=== PATIENT | male | born 1955 | race Caucasian/White ===

== ENCOUNTER 2017-06-24 00:15 | Inpatient (IN) ==
[2017-06-24 00:50] LABS: Basophils # 0.1 K/mm3 (0-0.2); Basophils % 0.7 % (0.1-2.0); Eosinophils # 0.2 K/mm3 (0.0-0.4); Eosinophils % 2.3 % (0.1-12.0); Hematocrit 44.6 % (42.0-52.0); Hemoglobin 14.7 g/dL (14.1-18.0); Lymphocytes # 2.5 K/mm3 (0.7-4.5); Lymphocytes % 24.8 K/mm3 (10-50); Mean Corpuscular Hemoglobin 28.7 pg (27.0-31.2); Mean Corpuscular Volume 86.9 fl (80-94); Mean Platelet Volume 7.5 fl (7.4-10.4); Monocytes # 0.5 K/mm3 (0.1-1.0); Monocytes % 4.4 % (1.7-9.3); Neutrophils # 6.9 K/mm3 (1.8-7.8); Neutrophils % 67.8 % (37.0-80.0); Platelet Count 403 K/mm3 (142-424); Red Blood Count 5.13 M/mm3 (4.60-6.20); Red Cell Distribution Width 12.4 % (11.5-17.5); White Blood Count 10.1 K/mm3 (4.8-10.8)
[2017-06-24 01:04] LABS: Anion Gap 12.1 mEq/L (5-15); Potassium 3.1 mmoL/L (3.5-5.1)
--- NOTE | 2017-06-24 01:53 | Emergency Department Note ---
ED Disposition Clinical Impression: Renal insufficiency Congestive heart failure Qualifiers: Heart failure type: unspecified Heart failure chronicity: acute Qualified Code( s): I50.9 - Heart failure, unspecified Disposition: Admitted as Observation Condition on Discharge: Good - Critical Care Critical Care Time: No Attestation: On 06/24/17, the high probability of a clinically significant, sudden or life threatening deterioration of the following system(s) required my full and direct attention, intervention and personal management. The time I documented below is in addition to time spent performing reported procedures but includes the following listed in this critical care notation. Medical Decision Making - Medical Records Medical records reviewed: Yes: I reviewed the patient's medical records. - Maldonado Inquiry Pt receiving controlled substance: No Vital Signs: 06/24/17 00:16 06/24/17 00:46 06/24/17 03:13 Temperature 97.9 F 98.5 F Temperature Source Oral Oral Pulse Rate 115 H Pulse Rate [Right Radial] 111 H 95 H Respiratory Rate 28 H 18 Blood Pressure [Right Arm] 179/112 142/89 Blood Pressure Mean [Right Arm] 134 106 Blood Pressure Source [Right Arm] Automatic Cuff Automatic Cuff Blood Pressure Position [Right Arm] Sitting Sitting 02 Sat by Pulse Oximetry 86 L 94 L Oxygen Delivery Method Room Air Room Air Oxygen Flow Rate (LPM) 06/24/17 03:23 Temperature 97.5 F L Temperature Source Temporal Artery Scan Pulse Rate Pulse Rate [Right Radial] 67 Respiratory Rate 20 Blood Pressure [Right Arm] 147/108 Blood Pressure Mean [Right Arm] 121 Blood Pressure Source [Right Arm] Automatic Cuff Blood Pressure Position [Right Arm] Supine 02 Sat by Pulse Oximetry 95 Oxygen Delivery Method Room Air Nasal Cannula Oxygen Flow Rate (LPM) 3 - Lab Data Lab results reviewed: Yes: I reviewed the patient's lab results. Lab Results 06/24/17 00:29: WBC 10.1, RBC 5.13, Hgb 14.7, Hct 44.6, MCV 86.9, MCH 28.7, MCHC 33.0, RDW 12.4, Plt Count 403, MPV 7.5, Neut % (Auto) 67.8, Lymph % (Auto) 24.8, [place] % (Auto) 4.4, Eos % (Auto) 2.3, Baso % (Auto) 0.7, Neut # (Auto) 6.9 , Lymph # (Auto) 2.5, [place] # (Auto) 0.5, Eos # (Auto) 0.2, Baso # (Auto) 0.1 06/24/17 00:29: Sodium 140, Potassium 3.1 L, Chloride 102, Carbon Dioxide 29, Anion Gap 12.1, BUN 22 H, Creatinine 1.58 H, Estimated Creat Clear 68, Estimated GFR 45 L, Est GFR ( Amer) 54 L, Glucose 116 H, Troponin I 0.04 06/24/17 00:29: B-Natriuretic Peptide 826 H 06/24/17 00:29: D-Dimer 1060 H* Result diagrams: 06/24/17 00:29 06/24/17 00:29 Orders (Tests/Meds): ED MEDICATIONS Discontinued Medications Generic Name Dose Route Start Last Admin Trade Name Freq PRN Reason Stop Dose Admin Albuterol/Ipratropium 3 ml 06/24/17 00:27 06/24/17 00:43 Duoneb 3ml [facility] 06/24/17 00:28 3 ml ONCE ONE Administration Aspirin 324 mg 06/24/17 00:27 06/24/17 00:33 Aspirin 81mg Chewable Tablet PO 06/24/17 00:28 324 mg ONCE ONE Administration Furosemide 40 mg 06/24/17 01:15 06/24/17 01:26 Lasix 40mg/4ml Vial IV 06/24/17 01:16 40 mg ONCE ONE Administration Iopamidol 70 ml 06/24/17 03:30 06/24/17 03:32 [id number]; 75ml Vial IV 06/24/17 03:31 70 ml ONCE ONE Administration Methylprednisolone Sodium Succinate 125 mg 06/24/17 01:15 06/24/17 01:27 Solu-Medrol 125mg/2ml Vial IV 06/24/17 01:16 125 mg ONCE ONE Administration Nitroglycerin 1 gm 06/24/17 02:14 06/24/17 02:30 Nitroglycerin 1 Inch Oint Udp TD 06/24/17 02:15 1 gm ONCE ONE Administration Sodium Chloride 3 ml 06/24/17 03:20 Sodium Chloride 3% 15ml [facility] 06/24/17 03:21 ONCE ONE Sodium Chloride 50 ml 06/24/17 03:30 06/24/17 03:32 Rad-Ns 50ml Vial IV 06/24/17 03:31 50 ml ONCE ONE Administration Sodium Chloride 10 ml 06/24/17 03:30 06/24/17 03:32 Rad-Saline Flush 10ml Syringe IV 06/24/17 03:31 10 ml ONCE ONE Administration ORDERS Category Date Time Status CT Chest w/PE protocol [CT angio chest] Stat Cat Scan 06/24/17 01:53 Taken Chest XR AP view [XR chest AP] Stat Exams 06/24/17 00:24 Taken Lactic Acid Stat Lab 06/24/17 03:20 Ordered Blood Culture Stat Micro 06/24/17 03:19 Ordered Sputum Culture & Gram Stain Stat Micro 06/24/17 03:20 Ordered - Radiology Data #1 Image(s): Chest Image Reviewed: Yes I reviewed the patient's radiology image Preliminary Findings: Abnormal (chf) - CT Data CT Scan: Chest Time Received: 04:[address] Reviewed: Yes: I have viewed the radiologist's interpretation Preliminary Findings: Abnormal (see report- chf) - ECG Data Tracing #1 I reviewed this ECG and interpreted as documented below: Arrhythmias present: sinus tach Ischemic changes: non-specific ST-T wave changes - Physician Consults Physician Consulted: jose luis Reason -: Admission Resp/SOB HPI - General Chief Complaint: Shortness of Breath/Dyspnea Stated Complaint: short of breath Time Seen by Provider: 06/24/17 01:52 Mode of Arrival: Ambulatory Source of Information: Patient, Spouse, Medical Record Limitations: No Limitations Description of Symptoms (Recalled from ER Triage Doc. by RN): pt reports he was on antibiotic for spot on left leg, awoke SOB with cough also hypertension - History of Present Illness pt with sudden sob and cough tonight w/o chest pain - MD Complaint: shortness of breath, cough Onset (ago): hour(s) Severity: moderate Relieving factors: nothing Known history of: COPD Treatment prior to arrival: none - Related Data Home oxygen amount: none Home Medications Medication Instructions Recorded Confirmed No Known Home Medications 06/24/17 06/24/17 Allergies Allergy/AdvReac Type Severity Reaction Status Date / Time Penicillins Allergy Verified 06/24/17 00:26 [facility] History I have reviewed the patient's past medical history: Yes Medical History: Denies:: Cancer, Diabetes Mellitus Type 1, Diabetes Mellitus Type 2, MRSA Amputation: No Fractures: No - Social History Smoking Status: Current every day smoker # Packs/Day (cigarettes): 1 Alcohol Intake: never - Psychiatric History Expresses thoughts of harming self/others: None Suicide Plan Description: No Plan ROS Obtained: Yes All systems reviewed & no additional complaints - Constitutional Constitutional: Denies fever(s) - Eyes Eyes: Denies change in vision - ENT Ears, Nose, Mouth, and Throat: Denies sore throat - Cardiovascular Cardiovascular: Denies chest pain - Respiratory Respiratory: Yes cough, Yes dyspnea, No coughing up blood - Gastrointestinal Gastrointestingal: Denies: abdominal pain - Genitourinary Male Genitourinary: Denies hematuria - Musculoskeletal Musculoskeletal: Denies joint pain, Denies joint swelling - Integumentary/Breasts Skin/Breast: Denies rash - Neurologic Neurologic: Denies seizure-like activity Physical Exam - General General appearance: in no apparent distress - Head Head exam: normocephalic - Eye Eye exam: Present: PERRL, EOMI - ENT ENT exam: Present: mucous membranes dry - Neck Neck exam: Present: trachea midline - Respiratory Respiratory exam: Present: other (rales bilat). Absent: respiratory distress - Cardiovascular Cardiovascular exam: Present: regular rate, systolic murmur, +S3 - Abdominal Exam Abdominal exam: Present: soft - Extremities Exam Extremities exam: Absent: calf tenderness - Neurological Exam Neurological exam: Present: alert, oriented X3, CN II-XII intact - Psychiatric Psychiatric exam: Present: normal affect - Skin Skin exam: Absent: rash
[2017-06-24 07:29] LABS: Basophils % 0.1 % (0.1-2.0); Eosinophils % 0.4 % (0.1-12.0); Hematocrit 42.9 % (42.0-52.0); Hemoglobin 14.3 g/dL (14.1-18.0); Lymphocytes # 0.5 K/mm3 (0.7-4.5); Lymphocytes % 4.3 K/mm3 (10-50); Mean Corpuscular HGB Conc 33.4 g/dL (31.8-35.4); Mean Corpuscular Hemoglobin 28.8 pg (27.0-31.2); Mean Corpuscular Volume 86.4 fl (80-94); Mean Platelet Volume 7.4 fl (7.4-10.4); Monocytes # 0.1 K/mm3 (0.1-1.0); Monocytes % 1.2 % (1.7-9.3); Neutrophils # 10.6 K/mm3 (1.8-7.8); Platelet Count 370 K/mm3 (142-424); Red Blood Count 4.96 M/mm3 (4.60-6.20); Red Cell Distribution Width 12.4 % (11.5-17.5); White Blood Count 11.3 K/mm3 (4.8-10.8)
[2017-06-24 07:38] LABS: Anion Gap 14.2 mEq/L (5-15); Potassium 3.2 mmoL/L (3.5-5.1)
[2017-06-24 07:43] LABS: Chol/HDL Ratio 7.9 (1-3.5)
--- NOTE | 2017-06-24 08:07 | History & Physical Report ---
*Admission Date: 06/24/17 *Chief complaint: Shortness of air *History of present illness: 62-year-old white male with negative past medical history who a couple of weeks ago went to see his primary physician for a red insect bite on his foot and was noted to have high blood pressure. Watch waiting was prescribed and the patient was to return this month to reevaluate his blood pressure. He has been taking it at [facility] and notices that it has been in the 170 range. He woke up in the middle of the night last night with shortness of air and coughing, significant dyspnea and came to the emergency department. Found to be in pulmonary edema, evidence of CHF. Troponins negative, chest x-ray otherwise negative, patient diuresed almost a liter of urine with a dose of Lasix and felt much better. This morning he feels better without complaints. [facility] History I have reviewed the patient's past medical history: Yes Medical History: Denies:: Cancer, Diabetes Mellitus Type 1, Diabetes Mellitus Type 2, MRSA Other Surgeries: Yes: Cardiac Catheterization Amputation: No Fractures: No - *Social History Educational Level: Attended High School Smoking Status: Current every day smoker Tobacco Type: cigarettes # Packs/Day (cigarettes): 1 #Yrs smoked (if former smoker): 47 Alcohol Intake: never Occupational Status: employed Housing: house Household Members: spouse - Psychiatric History Expresses thoughts of harming self/others: None Suicide Plan Description: No Plan *Family Hx:: Anemia, Cancer, Coronary Artery Disease, Diabetes, Hyperlipidemia Review of Systems - Constitutional Denies anorexia, Denies body ache(s) - Eyes Denies blind spots, Denies change in vision - ENT Denies abnormal hearing, Denies bleeding gums - *Cardiovascular Reports shortness of breath, Reports shortness of breath with activity, Reports shortness of breath when lying down, Reports shortness of breath causing sudden awakening, Denies chest pain, Denies chest pain at rest, Denies irregular heart rhythm, Denies leg swelling, Denies rapid, pounding, or irregular heartbeat - *Respiratory Denies change in phlegm color, Denies chest congestion, Denies cough, Denies shortness of breath - *Genitourinary Denies difficulty urinating - *Musculoskeletal Denies abnormal walking, Denies joint pain - *Neurologic Denies seizure-like activity Meds Home Medications Medication Instructions Recorded Confirmed Type cephALEXin [cephALEXin 500mg 2 tab PO BID 06/24/17 06/24/17 History capsule] Allergies Allergy/AdvReac Type Severity Reaction Status Date / Time Penicillins Allergy Verified 06/24/17 00:26 Exam Vital signs and Labs for Last 24 Hours: Temp Pulse Resp BP Pulse Ox 98.2 F 96 H 20 148/97 98 06/24/17 07:30 06/24/17 07:30 06/24/17 07:30 06/24/17 07:30 06/24/17 07:30 Laboratory Results - last 24 hr 06/24/17 00:29: WBC 10.1, RBC 5.13, Hgb 14.7, Hct 44.6, MCV 86.9, MCH 28.7, MCHC 33.0, RDW 12.4, Plt Count 403, MPV 7.5, Neut % (Auto) 67.8, Lymph % (Auto) 24.8, [place] % (Auto) 4.4, Eos % (Auto) 2.3, Baso % (Auto) 0.7, Neut # (Auto) 6.9 , Lymph # (Auto) 2.5, [place] # (Auto) 0.5, Eos # (Auto) 0.2, Baso # (Auto) 0.1 06/24/17 00:29: Sodium 140, Potassium 3.1 L, Chloride 102, Carbon Dioxide 29, Anion Gap 12.1, BUN 22 H, Creatinine 1.58 H, Estimated Creat Clear 68, Estimated GFR 45 L, Est GFR ( Amer) 54 L, Glucose 116 H, Troponin I 0.04 06/24/17 00:29: B-Natriuretic Peptide 826 H 06/24/17 00:29: D-Dimer 1060 H* 06/24/17 03:36: Lactic Acid 1.1 06/24/17 07:06: Sodium 139, Potassium 3.2 L, Chloride 101, Carbon Dioxide 27, Anion Gap 14.2, BUN 22 H, Creatinine 1.47 H, Estimated Creat Clear 69, Estimated GFR 49 L, Est GFR ( Amer) 59, Glucose 145 H D 06/24/17 07:06: WBC 11.3 H, RBC 4.96, Hgb 14.3, Hct 42.9, MCV 86.4, MCH 28.8, MCHC 33.4, RDW 12.4, Plt Count 370, MPV 7.4, Neut % (Auto) 94.0 H, Lymph % (Auto ) 4.3 L, [place] % (Auto) 1.2 L, Eos % (Auto) 0.4, Baso % (Auto) 0.1, Neut # (Auto ) 10.6 H, Lymph # (Auto) 0.5 L, [place] # (Auto) 0.1, Eos # (Auto) 0.0, Baso # ( Auto) 0.0 06/24/17 07:06: Triglycerides 53, Cholesterol 238 H, LDL Cholesterol 197 H, VLDL Cholesterol 11, HDL Cholesterol 30, Cholesterol/HDL Ratio 7.9 H 06/24/17 07:06: Magnesium 2.1, Troponin I 0.07 H I & O for Last 24 hours: Intake & Output 06/21/17 06/22/17 06/23/17 06/24/17 11:59 11:59 11:59 11:59 Intake Total 240 / 240 Output Total 1000 / 1000 Balance -760 / -760 Weight 203 lb Narrative: Patient is pleasant, wearing 2 L of oxygen, no JVD currently. Lungs have minimal rhonchi in both bases but otherwise clear. Apparently much clearer than the ER note. Heart rate regular without murmurs. Abdomen soft, no extremity edema or clubbing. Alert and oriented 3. H&P: Result - Labs Labs: Short CBC 06/24/17 06/24/17 Range/Units 00:29 07:06 WBC 10.1 11.3 H (4.8-10.8) K/mm3 Hgb 14.7 14.3 (14.1-18.0) g/dL Hct 44.6 42.9 (42.0-52.0) % Plt Count 403 370 (142-424) K/mm3 BMP 06/24/17 06/24/17 00:29 07:06 Sodium 140 139 Potassium 3.1 L 3.2 L Chloride 102 101 Carbon Dioxide 29 27 BUN 22 H 22 H Creatinine 1.58 H 1.47 H Glucose 116 H 145 H D Cardiac Enzymes 06/24/17 06/24/17 Range/Units 00:29 07:06 Troponin I 0.04 0.07 H (0.00-0.06) ng/ml Assessment and Plan (1) Paroxysmal nocturnal dyspnea Current visit: Yes Status: Acute Category: Medical Code(s): R06.00 - Dyspnea, unspecified Consequence of pulmonary edema. Ameliorated with IV Lasix. One more dose today. (2) Congestive heart failure Current visit: Yes Status: Acute Qualifiers: Heart failure type: unspecified Heart failure chronicity: acute Qualified Code(s): I50.9 - Heart failure, unspecified Category: Medical Code(s): I50.9 - Heart failure, unspecified Preliminary EKG. Preliminary echo shows EF 40-50%. Plan will be to begin RACHEL inhibitor cautiously, spironolactone and IV Lasix. Watch electrolytes tomorrow. Possible discharge tomorrow on medication. (3) Renal insufficiency Current visit: Yes Status: Acute Category: Medical Code(s): N28.9 - Disorder of kidney and ureter, unspecified Probable improvement with IV Lasix as he is pushed back behind the [place] curve. Watch labs tomorrow.
[2017-06-24 08:18] LABS: Lymphocytes % 5 % (10-50); Monocytes % 3 % (2-9); Neutrophils % 92 % (42-76); Total Cells Counted 100
--- NOTE | 2017-06-24 08:19 | Pharmacy Consult Notes ---
[facility] Pharmacy VTE Monitoring - Patient Demographics Admission date: 06/24/17 Report Date: 06/24/17 Time: 08:19 Allergies/Adverse Reactions: Patient Allergies Penicillins Allergy (Verified 06/24/17 00:26) Height: 1.91 m Weight: 92.079 kg Patient Problems: Current Active Problems Congestive heart failure (Acute) Renal insufficiency (Acute) Paroxysmal nocturnal dyspnea (Acute) - VTE Risk Labs: VTE Related Lab Results Hgb 14.3 g/dL (14.1-18.0) 06/24/17 07:06 Hct 42.9 % (42.0-52.0) 06/24/17 07:06 Plt Count 370 K/mm3 (142-424) 06/24/17 07:06 BUN 22 mg/dL (7-18) H 06/24/17 07:06 Creatinine 1.47 mg/dL (0.70-1.30) H 06/24/17 07:06 Estimated Creat Clear 69 mL/min (0-300) 06/24/17 07:06 Was VTE Risk Assessment Performed: Yes VTE Score: 4 VTE Risk Level: Low Risk - Prophylaxis VTE Prophylaxis Ordered?: Yes Types of VTE Prophylaxis: TEDS Knee High Location of Applied Device: Bilateral Lower Extremeties - VTE Diagnosis Confirmed Treatment or plan recommended: Continue Current Treatment
--- NOTE | 2017-06-24 13:02 | Cardiology Report ---
PROCEDURE: 2-D M-mode and color Doppler INDICATIONS FOR THE TEST: Chest pain COPD Heart Murmur+ Tobacco Smoking+ Palpitations Fatigue Syncope Edema Hypertension Diabetes Mellitus Rheumatic Fever SOB+DIALLO Obesity Hyperlipidemia Family History HD Additional History PATIENT INFORMATION HEIGHT: 75 WEIGHT:215 GENDER: Male B/P:142/89 2-D/M-MODE INTERPRETATION: 2-D MEASUREMENTS OBSERVED VALUES IN CMS Right Ventricular Dimension (RVDd) 2.2 Interventricular Septum (Thickness)(IVsd) 1.0 Left Ventricular Internal Dimensions(LVIDd) 5.7 Left Ventricular Posterior Wall (Thickness)(LVPWd) 0.8 Aortic Root 4.3 Aortic Cusp Separation 2.3 Left Atrial Dimensions (LAD) 4.4 2D 1. Left atrium is mildly enlarged, left ventricle is normal size, visually estimated ejection fraction approximately 45%, left ventricle appears to be mildly globally hypokinetic. 2. The right atrium and right ventricle are normal size and contractility The aortic valve is thickened and calcified leaflet continue to display mobility. 3. The mitral and tricuspid valvular grossly normal. 4. The pulmonic valve is poorly visualized 5. No significant pericardial effusion noted. DOPPLER INTERROGATION: Doppler interrogation of the aortic, mitral and tricuspid valvular presence of mild aortic, mild mitral and tricuspid regurgitation, tricuspid and jet velocity insufficient for calculation of the right ventricular systolic pressure, diastolic parameters are inconclusive. CONCLUSION: 1. Mildly enlarged left atrium, visually estimated ejection fraction 45% left ventricle is globally hypokinetic. Diastolic parameters are inconclusive. 2. Mild aortic, mild mitral and tricuspid regurgitation 3. No significant pericardial effusion noted.
[2017-06-24 18:01] LABS: Coronavirus 229E Not Detected (NotDetected); Coronavirus NL63 Not Detected (NotDetected); Coronavirus OC43 Not Detected (NotDetected); Coronovirus HKU1,PCR Not Detected (NotDetected)
[2017-06-25 06:39] LABS: Basophils % 0.2 % (0.1-2.0); Eosinophils # 0.1 K/mm3 (0.0-0.4); Eosinophils % 1.1 % (0.1-12.0); Hematocrit 40.9 % (42.0-52.0); Hemoglobin 13.5 g/dL (14.1-18.0); Lymphocytes # 2.8 K/mm3 (0.7-4.5); Lymphocytes % 23.3 K/mm3 (10-50); Mean Corpuscular HGB Conc 33.1 g/dL (31.8-35.4); Mean Corpuscular Hemoglobin 28.7 pg (27.0-31.2); Mean Corpuscular Volume 86.7 fl (80-94); Mean Platelet Volume 7.6 fl (7.4-10.4); Monocytes # 0.6 K/mm3 (0.1-1.0); Monocytes % 4.8 % (1.7-9.3); Neutrophils # 8.4 K/mm3 (1.8-7.8); Neutrophils % 70.5 % (37.0-80.0); Platelet Count 368 K/mm3 (142-424); Red Blood Count 4.72 M/mm3 (4.60-6.20); Red Cell Distribution Width 12.6 % (11.5-17.5); White Blood Count 11.9 K/mm3 (4.8-10.8)
[2017-06-25 06:49] LABS: Albumin Level 3.2 gm/dL (3.4-5.0); Albumin/Globulin Ratio 0.9 (1.1-1.8); Anion Gap 13.9 mEq/L (5-15); Bilirubin,Total 0.4 mg/dL (0.2-1.0); Calcium 9.1 mg/dL (8.5-10.1); Globulin 3.7 gm/dl (1.3-3.2); Total Protein,Serum 6.9 gm/dL (6.4-8.2)
[2017-06-25 06:57] LABS: Potassium 2.9 mmoL/L (3.5-5.1)
--- NOTE | 2017-06-25 08:32 | Discharge Summary ---
General - General Admission date:: 06/24/17 Discharge date: 06/25/17 HPI HPI: 62-year-old white male with negative past medical history who a couple of weeks ago went to see his primary physician for a red insect bite on his foot and was noted to have high blood pressure. Watch waiting was prescribed and the patient was to return this month to reevaluate his blood pressure. He has been taking it at [facility] and notices that it has been in the 170 range. He woke up in the middle of the night last night with shortness of air and coughing, significant dyspnea and came to the emergency department. Found to be in pulmonary edema, evidence of CHF. Troponins negative, chest x-ray otherwise negative, patient diuresed almost a liter of urine with a dose of Lasix and felt much better. This morning he feels better without complaints. Hospital Course Hospital Course: Patient was admitted, ruled out for [place] by enzyme and EKG criteria. Diuresed with IV Lasix and very nicely with this. Echocardiogram revealed ejection fraction 45% with diffuse hypokinesis. No significant discrete motion abnormality or valvular problems. The diagnosis of CHF secondary to long-term hypertension was made. Is placed on lisinopril and spironolactone tolerated this well with good response of blood pressure from the 170s in the 130s. Patient's oxygen requirement resolved. This morning the patient feels great. He will be discharged home on lisinopril , spironolactone and Lasix. He will follow-up with cardiology next week. His regular physician week after next. I would like to have labs on him on Wednesday, he does have a slightly low potassium but given his prescription for 2 medications that increase potassium levels I will not supplement with potassium at this point. Objective Vital signs: Temp Pulse Resp BP Pulse Ox 97.9 F 86 16 136/86 92 L 06/25/17 08:00 06/25/17 08:00 06/25/17 08:00 06/25/17 08:00 06/25/17 08:00 Narrative: Alert, oriented 3. Lungs clear. Heart rate regular. Abdomen soft, no edema. Results Labs on day of discharge: Labs from last 24 hours 06/25/17 06/25/17 06/24/17 06:20 06:20 17:20 WBC 11.9 H RBC 4.72 Hgb 13.5 L Hct 40.9 L MCV 86.7 MCH 28.7 MCHC 33.1 RDW 12.6 Plt Count 368 MPV 7.6 Neut % (Auto) 70.5 Lymph % (Auto) 23.3 [place] % (Auto) 4.8 Eos % (Auto) 1.1 Baso % (Auto) 0.2 Neut # (Auto) 8.4 H Lymph # (Auto) 2.8 [place] # (Auto) 0.6 Eos # (Auto) 0.1 Baso # (Auto) 0.0 Sodium 142 Potassium 2.9 L* Chloride 103 Carbon Dioxide 28 Anion Gap 13.9 BUN 26 H Creatinine 1.32 H Estimated Creat Clear 77 Estimated GFR 55 L Est GFR ( Amer) 67 Glucose 99 D Calcium 9.1 Total Bilirubin 0.4 AST 17 ALT 20 Alkaline Phosphatase 79 Troponin I Total Protein 6.9 Albumin 3.2 L Globulin 3.7 H Albumin/Globulin Ratio 0.9 L Chlamy pneumoniae PCR Not detected Adenovirus (PCR) Not detected B.parapertussis DNA PCR Not detected Coronavirus OC43 (PCR) Not detected Coronavirus HKU1 (PCR) Not detected Coronavirus 229E (PCR) Not detected Coronavirus NL63 (PCR) Not detected Human Metapneumovir PCR Not detected Influenza A (H1) PCR Not detected Influ A (H1N1/09) PCR Not detected Influenza A (H3) PCR Not detected Influenza Type A (PCR) Not detected Influenza Type B (PCR) Not detected M. pneumoniae (PCR) Not detected Parainfluenza 1 (PCR) Not detected Parainfluenza 2 (PCR) Not detected Parainfluenza 3 (PCR) Not detected Parainfluenza 4 (PCR) Not detected RSV (PCR) Not detected Entero/Rhino (PCR) Not detected 06/24/17 11:36 WBC RBC Hgb Hct MCV MCH MCHC RDW Plt Count MPV Neut % (Auto) Lymph % (Auto) [place] % (Auto) Eos % (Auto) Baso % (Auto) Neut # (Auto) Lymph # (Auto) [place] # (Auto) Eos # (Auto) Baso # (Auto) Sodium Potassium Chloride Carbon Dioxide Anion Gap BUN Creatinine Estimated Creat Clear Estimated GFR Est GFR ( Amer) Glucose Calcium Total Bilirubin AST ALT Alkaline Phosphatase Troponin I 0.05 Total Protein Albumin Globulin Albumin/Globulin Ratio Chlamy pneumoniae PCR Adenovirus (PCR) B.parapertussis DNA PCR Coronavirus OC43 (PCR) Coronavirus HKU1 (PCR) Coronavirus 229E (PCR) Coronavirus NL63 (PCR) Human Metapneumovir PCR Influenza A (H1) PCR Influ A (H1N1/09) PCR Influenza A (H3) PCR Influenza Type A (PCR) Influenza Type B (PCR) M. pneumoniae (PCR) Parainfluenza 1 (PCR) Parainfluenza 2 (PCR) Parainfluenza 3 (PCR) Parainfluenza 4 (PCR) RSV (PCR) Entero/Rhino (PCR) Preliminary micro results at discharge 06/24/17 03:36 Blood Culture - Preliminary Blood NO GROWTH AFTER 24 HOURS 06/24/17 03:36 Blood Culture - Preliminary Blood NO GROWTH AFTER 24 HOURS DS: Diagnosis - Discharge Diagnosis (1) Paroxysmal nocturnal dyspnea Status: Resolved (2) Congestive heart failure Status: Acute (3) Renal insufficiency Status: Chronic Discharge Plan - Patient Discharge Instructions ACTIVITY: Continue current activity DIET: cardiac - Follow up Plan Follow up with: Chema Joel PA [Physician [employer]] - 06/29/17 Kel Gagnon [Primary Care Provider] - 2 weeks Disposition: Home, Self-Long-Term Medications: Home Medications Medication Instructions Recorded Confirmed Type cephALEXin [cephALEXin 500mg 2 tab PO BID 06/24/17 06/24/17 History capsule] Prescriptions/Medication Reconciliation: New Furosemide [Lasix 40mg tab] 40 mg PO DAILY #30 tab Lisinopril [Zestril 10mg Tab] 10 mg PO DAILY #30 tab Spironolactone [Aldactone 25mg Tab] 25 mg PO BID #60 tab Nicotine [Nicoderm 14mg/24hrs patch] 1 each TD DAILY #30 patch.[id number] Discontinued cephALEXin [cephALEXin 500mg capsule] 2 tab PO BID
== END 2017-06-25 10:00 | disposition home or self-care (01) ==
LOC: ER 00:15 → 2ND 00:15 → INTOOBSV 04:35 → OBSVTOIN 04:35 → 2ND 04:39
PROVIDERS: ADMIT Internal Medicine Adolescent Medicine; ATTEND Internal Medicine Adolescent Medicine

== ENCOUNTER → 2017-06-28 08:39 | Outpatient (CLI) | payer BC, SELFPAY ==
[2017-06-28 10:22] LABS: Anion Gap 13.2 mEq/L (5-15); Blood Urea Nitrogen 31 mg/dL (7-18); Carbon Dioxide 28 mmol/L (21.0-32.0); Chloride 105 mmol/L (98-107); Creatinine,Serum 1.42 mg/dL (0.70-1.30); Estimated Glomerular Filt Rate 51 ml/min (>60); GFR (African American) 61 ML/MIN (>60); Glucose 84 mg/dL (74-106); Potassium 4.2 mmoL/L (3.5-5.1); Sodium 142 mmol/L (136-145)
== END ==
PROVIDERS: Visit Provider Internal Medicine Adolescent Medicine
DX: I50.9 Heart failure, unspecified (principal)
CPT/HCPCS: 36415; 80048

== ENCOUNTER → 2017-06-30 15:09 | Outpatient (CLI) | payer BC, SELFPAY | PROVIDERS: Visit Provider Physician Assistant | DX: R06.00 Dyspnea, unspecified (principal); I10 Essential (primary) hypertension | CPT/HCPCS: 93005 ==

== ENCOUNTER → 2017-07-07 15:07 | Outpatient (CLI) | payer BC, SELFPAY ==
[2017-07-07 17:25] LABS: Alanine Aminotransferase 21 U/L (12-78); Albumin Level 3.3 gm/dL (3.4-5.0); Albumin/Globulin Ratio 0.9 (1.1-1.8); Alkaline Phosphatase 88 U/L (46-116); Anion Gap 16.2 mEq/L (5-15); Aspartate Amino Transferase 14 U/L (15-37); Bilirubin,Total 0.3 mg/dL (0.2-1.0); Blood Urea Nitrogen 27 mg/dL (7-18); Calcium 9.6 mg/dL (8.5-10.1); Carbon Dioxide 24 mmol/L (21.0-32.0); Chloride 106 mmol/L (98-107); Creatine Kinase 68 U/L (39-308); Creatinine,Serum 1.65 mg/dL (0.70-1.30); Estimated Glomerular Filt Rate 43 ml/min (>60); Free T4 (Free Thyroxine) 1.12 ng/dl (0.76-1.46); GFR (African American) 52 ML/MIN (>60); Globulin 3.5 gm/dl (1.3-3.2); Glucose 84 mg/dL (74-106); Potassium 5.2 mmoL/L (3.5-5.1); Sodium 141 mmol/L (136-145); Thyroid Stimulating Hormone 1.48 uIU/ml (0.358-3.740); Total Protein,Serum 6.8 gm/dL (6.4-8.2)
== END ==
PROVIDERS: Visit Provider Physician Assistant
DX: I50.9 Heart failure, unspecified (principal); I48.91 Unspecified atrial fibrillation
CPT/HCPCS: 36415; 80053; 82550; 83735; 84439; 84443; 93005

== ENCOUNTER → 2017-07-16 08:54 | Outpatient (CLI) | payer BC, SELFPAY ==
[2017-07-16 10:46] LABS: Anion Gap 13.2 mEq/L (5-15); Blood Urea Nitrogen 20 mg/dL (7-18); Carbon Dioxide 27 mmol/L (21.0-32.0); Chloride 105 mmol/L (98-107); Creatinine,Serum 1.24 mg/dL (0.70-1.30); Estimated Glomerular Filt Rate 59 ml/min (>60); GFR (African American) 72 ML/MIN (>60); Glucose 77 mg/dL (74-106); Potassium 4.2 mmoL/L (3.5-5.1); Sodium 141 mmol/L (136-145)
== END ==
PROVIDERS: Visit Provider Physician Assistant
DX: N28.9 Disorder of kidney and ureter, unspecified (principal); E87.5 Hyperkalemia
CPT/HCPCS: 36415; 80048

== ENCOUNTER → 2017-09-11 07:04 | Outpatient (CLI) | payer BC, SELFPAY ==
[2017-09-11 09:00] LABS: Alanine Aminotransferase 29 U/L (12-78); Albumin Level 3.7 gm/dL (3.4-5.0); Albumin/Globulin Ratio 1.3 (1.1-1.8); Alkaline Phosphatase 99 U/L (46-116); Anion Gap 10.1 mEq/L (5-15); Aspartate Amino Transferase 14 U/L (15-37); Bilirubin,Total 0.5 mg/dL (0.2-1.0); Blood Urea Nitrogen 18 mg/dL (7-18); Calcium 8.9 mg/dL (8.5-10.1); Carbon Dioxide 27 mmol/L (21.0-32.0); Chloride 107 mmol/L (98-107); Chol/HDL Ratio 4.3 (1-3.5); Cholesterol 136 mg/dL (140-200); Creatinine,Serum 1.32 mg/dL (0.70-1.30); Estimated Glomerular Filt Rate 55 ml/min (>60); GFR (African American) 67 ML/MIN (>60); Globulin 2.9 gm/dl (1.3-3.2); Glucose 76 mg/dL (74-106); HDL Cholesterol 32 mg/dL (27-67); LDL Cholesterol 89 mg/dL (0-130); Potassium 4.1 mmoL/L (3.5-5.1); Sodium 140 mmol/L (136-145); Total Protein,Serum 6.6 gm/dL (6.4-8.2); Triglycerides 74 mg/dL (30-200); VLDL Cholesterol 15 mg/dL (0-40)
== END ==
PROVIDERS: Visit Provider Physician Assistant
DX: I25.10 Atherosclerotic heart disease of native coronary artery without angina pectoris (principal); E78.5 Hyperlipidemia, unspecified
CPT/HCPCS: 36415; 80053; 80061; 83880

== ENCOUNTER → 2017-11-01 11:53 | Outpatient (CLI) | payer BC, SELFPAY ==
--- NOTE | 2017-11-01 12:05 | XR_ITS ---
EXAM: XR lumbar spine min 4V HISTORY: ITS.REASON: LOW BACK PAIN ORDERING PHYSICIAN: Kel Gagnon PATIENT AGE: 62 years COMPARISON: None FINDINGS: Normal alignment. Minimal lumbar curvature convex left. No fracture or dislocation. No lytic or blastic change. The disc spaces are well-preserved. There is fusiform dilatation of the abdominal aorta measuring 5.7 cm in AP dimension on the lateral view. This does have some magnification. IMPRESSION: 1. No acute findings of the lumbar spine. 2. Abdominal aortic aneurysm. Consider CT abdomen for more thorough evaluation
== END ==
PROVIDERS: PCP Internal Medicine; Visit Provider Internal Medicine
DX: M54.5 Low back pain (principal)
CPT/HCPCS: 72110

== ENCOUNTER → 2017-11-02 14:33 | Outpatient (CLI) | payer BC, SELFPAY ==
[2017-11-02 16:20] LABS: Blood Urea Nitrogen 20 mg/dL (7-18); Creatinine,Serum 1.47 mg/dL (0.70-1.30); Estimated Glomerular Filt Rate 49 ml/min (>60); GFR (African American) 59 ML/MIN (>60)
== END ==
PROVIDERS: PCP Internal Medicine; Visit Provider Physician Assistant
DX: I71.4 Abdominal aortic aneurysm, without rupture (principal); N28.9 Disorder of kidney and ureter, unspecified
CPT/HCPCS: 36415; 82565; 84520

== ENCOUNTER → 2017-11-03 12:42 | Outpatient (CLI) | payer BC, SELFPAY ==
--- NOTE | 2017-11-03 13:03 | CT_ITS ---
CT angio abdomen CLINICAL INDICATION: Abdominal aortic aneurysm noted on recent lumbar spine film, back pain ITS.REASON: AAA,DILATED ASCENDING AORTA, CAD,HTN,FORMER SMOKER ORDERING PHYSICIAN: OWEN Benitez PATIENT AGE: 62 years COMPARISON: None TECHNIQUE: Axial images obtained with sagittal and coronal reformats. All CT scans at the facility use one or more dose reduction, viz: automated exposure control, ma/kV adjustment per patient size (including targeted exams where dose is matched to indication, i.e. head), or iterative reconstruction technique. PROCEDURE: Oral Contrast: None IV Contrast: 100 mL's of Isovue-370 performed in conjunction with the chest CT. FINDINGS: CT angiography: There is an infrarenal abdominal aortic aneurysm measuring 4.6 cm in maximum AP dimension and 5 cm transverse. The aneurysm begins 11 mm below the level the most inferior renal artery and tapers at the aortic bifurcation with a total lap of approximately 11 cm. There is no evidence of acute hemorrhage. There is mild amount of mural thrombus. There is a prominent atherosclerotic ulcer along the posterior aspect of the aneurysm with some smaller atherosclerotic ulcers more superior. 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 This supplies the mid and upper pole of the left kidney and is the largest of 2 left renal arteries. There is an accessory renal artery to the lower pole the left kidney. This accessory renal artery is approximately 11 mm superior to the beginning of the aneurysm. 50% stenosis involves ostium of the celiac artery. SMA has an unremarkable appearance. The SARTHAK is small and may be occluded proximally with collateral filling from the SMA. Atherosclerotic changes involve the proximal iliacs with 50% stenosis of the proximal aspect of the right common iliac artery. Nonangiographic findings: FINDINGS: Several isodense is present involving the liver the largest in the right hepatic lobe anteriorly and 1.4 cm and may be due to a hepatic cyst. The spleen, adrenal glands, and pancreas are unremarkable. The left kidney is atrophic with hypoperfusion to the mid and upper pole of the left kidney. No radio opaque gallstones. No intestinal obstruction or free air. There is no pelvic mass or abnormal fluid collection. The prostate is slightly enlarged at 5 cm. There is a small left inguinal hernia containing fat. No acute bony anomalies evident. IMPRESSION: 1. 4.6 x 5 cm fusiform infrarenal abdominal aortic aneurysm as described above. Please see above for detailed description. Atheromatous ulcers are present within the aneurysm the largest posteriorly. 2. Occluded left renal artery proximally with atrophic changes of the left kidney and hypoperfusion to the mid and upper pole the left kidney 3. 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 50 % stenosis of the ostium of the right common iliac artery.
--- NOTE | 2017-11-03 13:03 | CT_ITS ---
CT angio chest HISTORY: Follow-up dilated ascending aorta ITS.REASON: AAA,DILATED ASCENDING AORTA,CAD,HTN,FORMER SMOKER ORDERING PHYSICIAN: OWEN Benitez PATIENT AGE: 62 years COMPARISON: 06/24/2017 TECHNIQUE: Axial images obtained following the administration of 75 mL of Isovue 370 . Sagittal, and coronal reformatted images are also generated and reviewed. All CT scans at the facility use one or more dose reduction, viz: automated exposure control, ma/kV adjustment per patient size (including targeted exams where dose is matched to indication, i.e. head), or iterative reconstruction technique. FINDINGS: There is been no significant change in the mild ectasia of the ascending thoracic aorta measuring 4.1 cm AP and transverse. There is no evidence of aortic dissection. Great vessels have an unremarkable appearance. Normal heart size. No evidence of pericardial effusion. No evidence of pulmonary embolus. Mildly prominent mediastinal lymph nodes previously noted are somewhat smaller. There are centrilobular and paraseptal emphysematous changes with biapical scarring. Previously noted pleural effusions have resolved. Calcified granuloma is present in the right upper lobe. A noncalcified nodule present in the right upper lobe centrally at 4 mm not significant change.. No lobar consolidation or collapse is evident. There is no sternal fracture involving the mid aspect of the body of the sternum. IMPRESSION: 1. Overall no change in the ectasia of the ascending aorta. No evidence of dissection or pulmonary embolus. 2. Centrilobular and paraseptal emphysema with old granulomatous disease and a stable 4 mm noncalcified nodule in the right upper lobe.
--- NOTE | 2017-11-03 13:30 | HMH.ITSHM ---
BISPROLOLXARELTO LISINOPRIL LIPITOR BRILINTA LASIX
== END ==
PROVIDERS: Family Provider Internal Medicine; PCP Internal Medicine; Visit Provider Physician Assistant
DX: I71.4 Abdominal aortic aneurysm, without rupture (principal); I10 Essential (primary) hypertension; I71.2 Thoracic aortic aneurysm, without rupture; I25.10 Atherosclerotic heart disease of native coronary artery without angina pectoris
CPT/HCPCS: 71275; 74175; Q9967

== ENCOUNTER → 2017-12-02 08:29 | Outpatient (CLI) | payer BC, SELFPAY ==
[2017-12-02 11:07] LABS: Alanine Aminotransferase 36 U/L (12-78); Albumin Level 3.8 gm/dL (3.4-5.0); Albumin/Globulin Ratio 1.3 (1.1-1.8); Alkaline Phosphatase 101 U/L (46-116); Anion Gap 11.6 mEq/L (5-15); Aspartate Amino Transferase 18 U/L (15-37); Bilirubin,Total 0.4 mg/dL (0.2-1.0); Blood Urea Nitrogen 21 mg/dL (7-18); Calcium 9.2 mg/dL (8.5-10.1); Carbon Dioxide 29 mmol/L (21.0-32.0); Chloride 103 mmol/L (98-107); Chol/HDL Ratio 3.6 (1-3.5); Cholesterol 142 mg/dL (140-200); Creatinine,Serum 1.35 mg/dL (0.70-1.30); Estimated Glomerular Filt Rate 54 ml/min (>60); GFR (African American) 65 ML/MIN (>60); Glucose 90 mg/dL (74-106); HDL Cholesterol 40 mg/dL (27-67); LDL Cholesterol 85 mg/dL (0-130); Potassium 4.6 mmoL/L (3.5-5.1); Sodium 139 mmol/L (136-145); Total Protein,Serum 6.8 gm/dL (6.4-8.2); Triglycerides 86 mg/dL (30-200); VLDL Cholesterol 17 mg/dL (0-40)
== END ==
PROVIDERS: PCP Internal Medicine; Visit Provider Physician Assistant
DX: I25.10 Atherosclerotic heart disease of native coronary artery without angina pectoris (principal); E78.5 Hyperlipidemia, unspecified
CPT/HCPCS: 36415; 80053; 80061

== ENCOUNTER → 2018-02-04 08:40 | Outpatient (CLI) | payer BC, SELFPAY ==
[2018-02-04 09:38] LABS: Alanine Aminotransferase 28 U/L (12-78); Albumin Level 3.9 gm/dL (3.4-5.0); Albumin/Globulin Ratio 1.3 (1.1-1.8); Alkaline Phosphatase 92 U/L (46-116); Anion Gap 13.1 mEq/L (5-15); Aspartate Amino Transferase 11 U/L (15-37); Bilirubin,Total 0.6 mg/dL (0.2-1.0); Blood Urea Nitrogen 21 mg/dL (7-18); Carbon Dioxide 28 mmol/L (21.0-32.0); Chloride 103 mmol/L (98-107); Chol/HDL Ratio 3.8 (1-3.5); Cholesterol 141 mg/dL (140-200); Creatinine,Serum 1.53 mg/dL (0.70-1.30); Estimated Glomerular Filt Rate 47 ml/min (>60); GFR (African American) 56 ML/MIN (>60); Glucose 99 mg/dL (74-106); HDL Cholesterol 37 mg/dL (27-67); LDL Cholesterol 85 mg/dL (0-130); Potassium 4.1 mmoL/L (3.5-5.1); Sodium 140 mmol/L (136-145); Total Protein,Serum 6.9 gm/dL (6.4-8.2); Triglycerides 95 mg/dL (30-200); VLDL Cholesterol 19 mg/dL (0-40)
== END ==
PROVIDERS: Visit Provider Physician Assistant
DX: I25.10 Atherosclerotic heart disease of native coronary artery without angina pectoris (principal); E78.5 Hyperlipidemia, unspecified
CPT/HCPCS: 36415; 80053; 80061

== ENCOUNTER → 2018-02-19 08:27 | Outpatient (CLI) | payer BC, SELFPAY ==
[2018-02-19 10:00] LABS: Alanine Aminotransferase 32 U/L (12-78); Albumin Level 3.6 gm/dL (3.4-5.0); Albumin/Globulin Ratio 1.2 (1.1-1.8); Alkaline Phosphatase 88 U/L (46-116); Anion Gap 12.1 mEq/L (5-15); Aspartate Amino Transferase 16 U/L (15-37); Bilirubin,Total 0.4 mg/dL (0.2-1.0); Blood Urea Nitrogen 17 mg/dL (7-18); Calcium 8.7 mg/dL (8.5-10.1); Carbon Dioxide 27 mmol/L (21.0-32.0); Chloride 106 mmol/L (98-107); Chol/HDL Ratio 3.8 (1-3.5); Cholesterol 132 mg/dL (140-200); Creatinine,Serum 1.31 mg/dL (0.70-1.30); Estimated Glomerular Filt Rate 56 ml/min (>60); GFR (African American) 67 ML/MIN (>60); Globulin 2.9 gm/dl (1.3-3.2); Glucose 97 mg/dL (74-106); HDL Cholesterol 35 mg/dL (27-67); LDL Cholesterol 82 mg/dL (0-130); Potassium 4.1 mmoL/L (3.5-5.1); Sodium 141 mmol/L (136-145); Total Protein,Serum 6.5 gm/dL (6.4-8.2); Triglycerides 74 mg/dL (30-200); VLDL Cholesterol 15 mg/dL (0-40)
== END ==
PROVIDERS: Visit Provider Physician Assistant
DX: I48.91 Unspecified atrial fibrillation (principal); I25.10 Atherosclerotic heart disease of native coronary artery without angina pectoris; E78.5 Hyperlipidemia, unspecified
CPT/HCPCS: 36415; 80053; 80061; 83880

== ENCOUNTER → 2018-02-21 11:44 | Outpatient (CLI) | payer BC, SELFPAY | PROVIDERS: Visit Provider Physician Assistant | DX: I48.91 Unspecified atrial fibrillation (principal) | CPT/HCPCS: 93005 ==

== ENCOUNTER → 2018-05-20 07:36 | Outpatient (CLI) | payer BC, SELFPAY ==
[2018-05-20 07:52] LABS: Basophils # 0.1 K/mm3 (0-0.2); Eosinophils # 0.2 K/mm3 (0.0-0.4); Eosinophils % 2.8 % (0.1-12.0); Hematocrit 42.3 % (42.0-52.0); Hemoglobin 14.1 g/dL (14.1-18.0); Lymphocytes # 1.9 K/mm3 (0.7-4.5); Mean Corpuscular HGB Conc 33.3 g/dL (31.8-35.4); Mean Corpuscular Hemoglobin 28.3 pg (27.0-31.2); Mean Platelet Volume 7.3 fl (7.4-10.4); Monocytes # 0.5 K/mm3 (0.1-1.0); Monocytes % 7.1 % (1.7-9.3); Neutrophils # 3.8 K/mm3 (1.8-7.8); Platelet Count 234 K/mm3 (142-424); Red Blood Count 4.98 M/mm3 (4.60-6.20); White Blood Count 6.4 K/mm3 (4.8-10.8)
[2018-05-20 09:35] LABS: Alanine Aminotransferase 31 U/L (12-78); Albumin Level 3.8 gm/dL (3.4-5.0); Albumin/Globulin Ratio 1.3 (1.1-1.8); Alkaline Phosphatase 79 U/L (46-116); Anion Gap 16.1 mEq/L (5-15); Aspartate Amino Transferase 20 U/L (15-37); Bilirubin,Total 0.4 mg/dL (0.2-1.0); Blood Urea Nitrogen 21 mg/dL (7-18); Calcium 8.8 mg/dL (8.5-10.1); Carbon Dioxide 24 mmol/L (21.0-32.0); Chloride 105 mmol/L (98-107); Chol/HDL Ratio 3.9 (1-3.5); Cholesterol 130 mg/dL (140-200); Creatinine,Serum 1.31 mg/dL (0.70-1.30); Estimated Glomerular Filt Rate 55 ml/min (>60); GFR (African American) 67 ML/MIN (>60); Globulin 2.9 gm/dl (1.3-3.2); Glucose 90 mg/dL (74-106); HDL Cholesterol 33 mg/dL (27-67); LDL Cholesterol 77 mg/dL (0-130); Potassium 4.1 mmoL/L (3.5-5.1); Prostate Specific Ag, Diagnost 2.17 ng/mL (0.0-4.0); Sodium 141 mmol/L (136-145); Total Protein,Serum 6.7 gm/dL (6.4-8.2); Triglycerides 99 mg/dL (30-200); VLDL Cholesterol 20 mg/dL (0-40)
== END ==
PROVIDERS: Visit Provider Internal Medicine
DX: I25.10 Atherosclerotic heart disease of native coronary artery without angina pectoris (principal); E78.5 Hyperlipidemia, unspecified; I48.91 Unspecified atrial fibrillation; I10 Essential (primary) hypertension; I71.4 Abdominal aortic aneurysm, without rupture
CPT/HCPCS: 36415; 80053; 80061; 84153; 85025

== ENCOUNTER → 2018-12-03 07:46 | Outpatient (CLI) | payer BC, SELFPAY ==
[2018-12-03 08:23] LABS: Alanine Aminotransferase 11 U/L (12-78); Albumin Level 3.6 gm/dL (3.4-5.0); Albumin/Globulin Ratio 1.2 (1.1-1.8); Alkaline Phosphatase 93 U/L (46-116); Aspartate Amino Transferase 3 U/L (15-37); Bilirubin,Total 0.4 mg/dL (0.2-1.0); Blood Urea Nitrogen 20 mg/dL (7-18); Calcium 8.1 mg/dL (8.5-10.1); Carbon Dioxide 27 mmol/L (21.0-32.0); Chol/HDL Ratio 3.7 (1-3.5); Cholesterol 134 mg/dL (140-200); Creatinine,Serum 0.22 mg/dL (0.70-1.30); Estimated Glomerular Filt Rate 435 ml/min (>60); GFR (African American) 526 ML/MIN (>60); Glucose 103 mg/dL (74-106); HDL Cholesterol 36 mg/dL (27-67); LDL Cholesterol 75 mg/dL (0-130); Total Protein,Serum 6.6 gm/dL (6.4-8.2); Triglycerides 115 mg/dL (30-200); VLDL Cholesterol 23 mg/dL (0-40)
[2018-12-03 08:28] LABS: Chloride 104 mmol/L (98-107); Sodium 140 mmol/L (136-145)
== END ==
PROVIDERS: Visit Provider Internal Medicine
DX: I10 Essential (primary) hypertension (principal); E78.5 Hyperlipidemia, unspecified
CPT/HCPCS: 36415; 80053; 80061

== ENCOUNTER → 2019-06-17 08:42 | Outpatient (CLI) | payer BC, SELFPAY ==
[2019-06-17 09:00] LABS: Basophils # 0.1 K/mm3 (0-0.2); Basophils % 1.1 % (0.1-2.0); Eosinophils # 0.3 K/mm3 (0.0-0.4); Eosinophils % 3.2 % (0.1-12.0); Hematocrit 47.4 % (42.0-52.0); Hemoglobin 15.4 g/dL (14.1-18.0); Lymphocytes # 1.4 K/mm3 (0.7-4.5); Lymphocytes % 18.6 % (10-50); Mean Corpuscular HGB Conc 32.4 g/dL (31.8-35.4); Mean Corpuscular Hemoglobin 28.1 pg (27.0-31.2); Mean Corpuscular Volume 86.6 fl (80-94); Mean Platelet Volume 7.5 fl (7.4-10.4); Monocytes # 0.5 K/mm3 (0.1-1.0); Monocytes % 6.3 % (1.7-9.3); Neutrophils # 5.5 K/mm3 (1.8-7.8); Neutrophils % 70.7 % (37.0-80.0); Platelet Count 229 K/mm3 (142-424); Red Blood Count 5.48 M/mm3 (4.60-6.20); White Blood Count 7.8 K/mm3 (4.8-10.8)
[2019-06-17 10:43] LABS: Chloride 108 mmol/L (98-107)
[2019-06-17 10:44] LABS: Potassium 4.4 mmoL/L (3.5-5.1); Sodium 139 mmol/L (136-145)
[2019-06-17 10:46] LABS: Alanine Aminotransferase 23 U/L (12-78); Aspartate Amino Transferase 24 U/L (17-59); Blood Urea Nitrogen 17 mg/dl (9-20); Estimated Glomerular Filt Rate 61 ml/min (>60); GFR (African American) 74 ML/MIN (>60)
[2019-06-17 10:47] LABS: Albumin Level 3.9 g/dl (3.5-5.0); Albumin/Globulin Ratio 1.6 (1.1-1.8); Alkaline Phosphatase 83 U/L (38-126); Anion Gap 10.4 mEq/L (5-15); Bilirubin,Total 0.4 mg/dl (0.2-1.3); Calcium 8.9 mg/dl (8.4-10.2); Carbon Dioxide 25 mmol/L (22.0-30.0); Chol/HDL Ratio 3.4 (1-3.5); Cholesterol 109 mg/dl (140-200); Globulin 2.4 g/dL (1.3-3.2); Glucose 98 mg/dl (74-100); HDL Cholesterol 32 mg/dl (40-60); Total Protein,Serum 6.3 g/dl (6.3-8.2); Triglycerides 87 mg/dl (30-150); VLDL Cholesterol 17 mg/dL (0-40)
[2019-06-17 10:58] LABS: Direct LDL Cholesterol 80.39 mg/dL (100-129)
[2019-06-17 11:17] LABS: Prostate Specific Ag, Diagnost 1.67 ng/ml (0.0-4.0)
== END ==
PROVIDERS: Visit Provider Internal Medicine
DX: I10 Essential (primary) hypertension (principal); I25.10 Atherosclerotic heart disease of native coronary artery without angina pectoris; I73.9 Peripheral vascular disease, unspecified; E78.5 Hyperlipidemia, unspecified; N40.1 Benign prostatic hyperplasia with lower urinary tract symptoms
CPT/HCPCS: 36415; 80053; 80061; 84153; 85025

== ENCOUNTER → 2019-12-01 07:25 | Outpatient (CLI) | payer BC, SELFPAY ==
[2019-12-01 08:17] LABS: Alanine Aminotransferase 25 U/L (12-78); Albumin Level 4.1 g/dl (3.5-5.0); Albumin/Globulin Ratio 1.7 (1.1-1.8); Alkaline Phosphatase 90 U/L (38-126); Anion Gap 10.5 mEq/L (5-15); Aspartate Amino Transferase 29 U/L (17-59); Bilirubin,Total 0.6 mg/dl (0.2-1.3); Blood Urea Nitrogen 18 mg/dl (9-20); Calcium 9.2 mg/dl (8.4-10.2); Carbon Dioxide 28 mmol/L (22.0-30.0); Chloride 105 mmol/L (98-107); Chol/HDL Ratio 3.6 (1-3.5); Cholesterol 127 mg/dl (140-200); Estimated Glomerular Filt Rate 56 ml/min (>60); GFR (African American) 67 ML/MIN (>60); Globulin 2.4 g/dL (1.3-3.2); Glucose 102 mg/dl (74-100); HDL Cholesterol 35 mg/dl (40-60); Potassium 4.5 mmoL/L (3.5-5.1); Sodium 139 mmol/L (136-145); Total Protein,Serum 6.5 g/dl (6.3-8.2); Triglycerides 117 mg/dl (30-150); VLDL Cholesterol 23 mg/dL (0-40)
[2019-12-01 08:28] LABS: Direct LDL Cholesterol 77.31 mg/dL (100-129)
== END ==
PROVIDERS: Visit Provider Internal Medicine
DX: E78.5 Hyperlipidemia, unspecified (principal); I10 Essential (primary) hypertension
CPT/HCPCS: 36415; 80053; 80061

== ENCOUNTER → 2020-06-08 07:08 | Outpatient (CLI) | payer BC, SELFPAY ==
[2020-06-08 07:38] LABS: Basophils # 0.1 K/mm3 (0-0.2); Basophils % 0.7 % (0.1-2.0); Eosinophils # 0.2 K/mm3 (0.0-0.4); Hematocrit 47.4 % (42.0-52.0); Hemoglobin 15.5 g/dL (14.1-18.0); Lymphocytes # 1.8 K/mm3 (0.7-4.5); Lymphocytes % 26.5 % (10-50); Mean Corpuscular HGB Conc 32.6 g/dL (31.8-35.4); Mean Corpuscular Hemoglobin 27.8 pg (27.0-31.2); Mean Corpuscular Volume 85.1 fl (80-94); Mean Platelet Volume 7.4 fl (7.4-10.4); Monocytes # 0.4 K/mm3 (0.1-1.0); Monocytes % 5.4 % (1.7-9.3); Neutrophils # 4.4 K/mm3 (1.8-7.8); Neutrophils % 64.3 % (37.0-80.0); Platelet Count 223 K/mm3 (142-424); Red Blood Count 5.57 M/mm3 (4.60-6.20); Red Cell Distribution Width 14.4 % (11.5-17.5); White Blood Count 6.8 K/mm3 (4.8-10.8)
[2020-06-08 08:28] LABS: Alanine Aminotransferase 35 U/L (12-78); Albumin Level 4.3 g/dl (3.5-5.0); Albumin/Globulin Ratio 1.8 (1.1-1.8); Alkaline Phosphatase 80 U/L (38-126); Anion Gap 12.6 mEq/L (5-15); Aspartate Amino Transferase 32 U/L (17-59); Bilirubin,Total 0.4 mg/dl (0.2-1.3); Blood Urea Nitrogen 18 mg/dl (9-20); Calcium 9.2 mg/dl (8.4-10.2); Carbon Dioxide 25 mmol/L (22.0-30.0); Chloride 106 mmol/L (98-107); Chol/HDL Ratio 4.5 (1-3.5); Cholesterol 140 mg/dl (140-200); Estimated Glomerular Filt Rate 56 ml/min (>60); GFR (African American) 67 ML/MIN (>60); Globulin 2.4 g/dL (1.3-3.2); Glucose 99 mg/dl (74-100); HDL Cholesterol 31 mg/dl (40-60); Potassium 4.6 mmoL/L (3.5-5.1); Sodium 139 mmol/L (136-145); Total Protein,Serum 6.7 g/dl (6.3-8.2); Triglycerides 145 mg/dl (30-150); VLDL Cholesterol 29 mg/dL (0-40)
[2020-06-08 08:39] LABS: Direct LDL Cholesterol 80.71 mg/dL (100-129)
[2020-06-08 08:59] LABS: Prostate Specific Ag Screen 2.9 ng/ml (0.0-4.0)
== END ==
PROVIDERS: Visit Provider Internal Medicine
DX: I10 Essential (primary) hypertension (principal); I25.10 Atherosclerotic heart disease of native coronary artery without angina pectoris; E78.5 Hyperlipidemia, unspecified; I73.9 Peripheral vascular disease, unspecified; N40.1 Benign prostatic hyperplasia with lower urinary tract symptoms; Z12.5 Encounter for screening for malignant neoplasm of prostate; Z98.890 Other specified postprocedural states
CPT/HCPCS: 36415; 80053; 80061; 85025; G0103

== ENCOUNTER → 2020-11-28 07:11 | Outpatient (CLI) | payer BC, OTHER, SELFPAY ==
[2020-11-28 08:08] LABS: Chloride 106 mmol/L (98-107); Potassium 4.9 mmoL/L (3.5-5.1); Sodium 140 mmol/L (136-145)
[2020-11-28 08:10] LABS: Blood Urea Nitrogen 19 mg/dl (9-20); Estimated Glomerular Filt Rate 61 ml/min (>60); GFR (African American) 74 ML/MIN (>60)
[2020-11-28 08:11] LABS: Alanine Aminotransferase 30 U/L (12-78); Albumin Level 3.9 g/dl (3.5-5.0); Albumin/Globulin Ratio 1.7 (1.1-1.8); Alkaline Phosphatase 79 U/L (38-126); Anion Gap 11.9 mEq/L (5-15); Aspartate Amino Transferase 32 U/L (17-59); Bilirubin,Total 0.4 mg/dl (0.2-1.3); Calcium 9.1 mg/dl (8.4-10.2); Carbon Dioxide 27 mmol/L (22.0-30.0); Cholesterol 127 mg/dl (140-200); Globulin 2.3 g/dL (1.3-3.2); Glucose 104 mg/dl (74-100); Total Protein,Serum 6.2 g/dl (6.3-8.2); Triglycerides 162 mg/dl (30-150); VLDL Cholesterol 32 mg/dL (0-40)
[2020-11-28 08:12] LABS: Chol/HDL Ratio 4.1 (1-3.5); HDL Cholesterol 31 mg/dl (40-60)
[2020-11-28 08:22] LABS: Direct LDL Cholesterol 67.47 mg/dL (100-129)
== END ==
PROVIDERS: Visit Provider Internal Medicine
DX: I25.10 Atherosclerotic heart disease of native coronary artery without angina pectoris (principal); I10 Essential (primary) hypertension; I73.9 Peripheral vascular disease, unspecified; E78.5 Hyperlipidemia, unspecified; N40.1 Benign prostatic hyperplasia with lower urinary tract symptoms
CPT/HCPCS: 36415; 80053; 80061

== ENCOUNTER → 2021-02-20 10:57 | Outpatient (CLI) | payer BC, SELFPAY | PROVIDERS: Visit Provider Nurse Practitioner | DX: U07.1 COVID-19 (principal) | CPT/HCPCS: C9803; U0003; U0005 ==

== ENCOUNTER → 2021-02-24 15:16 | Outpatient (CLI) | payer BC, SELFPAY ==
[2021-02-24] VITALS (12 sets, daily range): BP systolic 94–132; BP diastolic 47–84; PULSE 58–67; RESP 16–18; TEMP 36.4–36.6; O2SAT 95–100
== END | disposition home or self-care (01) ==
PROVIDERS: Visit Provider Internal Medicine
DX: U07.1 COVID-19 (principal); Z23 Encounter for immunization
CPT/HCPCS: 96365

== ENCOUNTER 2021-04-01 09:04 | Emergency (ER) | payer BC, SELFPAY ==
[2021-04-01 09:42] VITALS: BP 121/77; PULSE 57; RESP 18; TEMP 36.7; O2SAT 97; BMI 28.7
--- NOTE | 2021-04-01 09:42 | XR_ITS ---
FINAL REPORT CLINICAL HISTORY: fall, pain FINDINGS: LEFT FOOT Three views of the left foot demonstrate no acute fracture or dislocation. There are mild degenerative changes which are greatest at the 1st MTP joint. There is a plantar calcaneal spur. The soft tissues are unremarkable. IMPRESSION: No acute bony abnormality. Reviewed, Interpreted and Dictated by Jarrett Guillaume III, MD Transcribed by Cassia Johnston Authenticated by Jarrett Guillaume III, MD on 04/01/2021 12:49:21 PM [facility]
--- NOTE | 2021-04-01 09:42 | XR_ITS ---
FINAL REPORT CLINICAL HISTORY: fall, pain FINDINGS: LEFT TIBIA FIBULA Two views were obtained. There is an oblique fracture of the distal fibular metaphysis with mild distraction. The joint spaces are intact. There is lateral ankle soft tissue swelling. IMPRESSION: Oblique fracture of the distal fibula. Reviewed, Interpreted and Dictated by Jarrett Guillaume III, MD Transcribed by Cassia Johnston Authenticated by Jarrett Guillaume III, MD on 04/01/2021 12:49:22 PM [facility]
--- NOTE | 2021-04-01 09:42 | XR_ITS ---
FINAL REPORT CLINICAL HISTORY: fall, pain FINDINGS: LEFT ANKLE Two views were obtained. There is an oblique fracture of the distal fibular metaphysis with mild distraction. The joint spaces are intact. There is lateral soft tissue swelling. IMPRESSION: Oblique fracture of the distal fibula. Reviewed, Interpreted and Dictated by Jarrett Guillaume III, MD Transcribed by Cassia Johnston Authenticated by Jarrett Guillaume III, MD on 04/01/2021 12:49:20 PM [facility]
--- NOTE | 2021-04-01 10:21 | HMH.EDUTC ---
[facility] [place] Disposition Clinical Impression: Closed fracture of left distal fibula Qualifiers: Encounter type: initial encounter Fracture morphology: unspecified fracture morphology Qualified Code(s): S82.832A - Other fracture of upper and lower end of left fibula, initial encounter for closed fracture Fall Qualifiers: Encounter type: initial encounter Qualified Code(s): W19.XXXA - Unspecified fall, initial encounter Disposition: Home, Self-Care Condition on Discharge: Good Instructions: Fibula Shaft Fracture Additional Instructions: Rest the extremity, apply ice for 15 minutes as tolerated three or four times per day, Elevate the extremity as tolerated while you are resting. Keep the extremity elevated as much time as possible. Try to control the swelling using elevation and ice. If the lower leg swells significantly under the splint, it could get too tight. Please take the outer zack wrap off the splint and wrap it back looser if you have any doubts about swelling. Follow up with Dr. Aj (orthopedics) or your orthopedic physician of choice. I put in a referral to Dr. Aj but you need to call his office and schedule an appointment. If you already see an orthopedic physician that is not at this hospital, please call their office this morning to get a follow up appointment there as soon as they can see you. Please take the x-ray disk with you to the orthopedic appointment. Follow up with your regular doctor. GO TO THE ER FOR ANY WORSENING SYMPTOMS Referrals: Kel Gagnon [Primary Care Provider] - Swapnil Aj MD [Staff Physician] - Time of Disposition: 11:02 Medical Decision Making - Medical Records Medical records reviewed: No: I reviewed the patient's medical records. - Maldonado Inquiry Pt receiving controlled substance: No Vital Signs: 04/01/21 09:42 04/01/21 12:12 Temperature 98.1 F 98.1 F Temperature Source Oral Pulse Rate 57 L Pulse Rate [Left] 57 L Respiratory Rate 18 18 Blood Pressure 121/77 Blood Pressure [Right Arm] 121/77 Blood Pressure Mean [Right Arm] 91 02 Sat by Pulse Oximetry 97 Orders (Tests/Meds): ORDERS Category Date Time Status XR ankle LT min 3V Stat Exams 04/01/21 09:42 Taken XR foot LT min 3V Stat Exams 04/01/21 09:42 Taken XR tibia fibula LT 2V Stat Exams 04/01/21 09:42 Taken - Radiology Data #1 Image(s): Tib/Fib Image Reviewed: Yes I reviewed the patient's radiology image, Yes I have reviewed radiologist's interpretation Preliminary Findings: Abnormal #2 Image(s): Ankle Image Reviewed: Yes I reviewed the patient's radiology image, Yes I have reviewed radiologist's interpretation Preliminary Findings: Abnormal #3 Image(s): Foot/Toes Image Reviewed: Yes I reviewed the patient's radiology image, Yes I have reviewed radiologist's interpretation Preliminary Findings: Abnormal [facility] [place] HPI - General Stated complaint: AO fall 04/01 lt leg, ankle pain Time Seen by Provider: 04/01/21 10:21 Mode of Arrival: Wheelchair Source of Information: Patient, Spouse Limitations: No Limitations Description of Symptoms (Recalled from Triage Doc. by RN): pt states he fell on ice this am. pt c/o L ankle pain. HEENT Symptoms (Recalled from RN notes): No Resp Symptoms (Recalled from RN notes): No Skin Symptoms (Recalled from RN notes): No MS Symptoms (Recalled from RN notes): Yes (L lower leg and ankle pain) Functional Status (Recalled from RN notes): wnl - History of Present Illness Provider Complaint: He states that he slipped on ice this morning. He twisted his left ankle and lower leg when this happened. He c/o left lower leg and ankle pain and swelling since the fall. - Related Data Home Medications Medication Instructions Recorded Confirmed coenzyme Q10 200 mg/gram oral mg PO g 12/12/18 powder furosemide 40 mg tablet 20 mg PO DAILY PRN tab 12/12/18 lisinopril 10 mg tablet 2.5 mg PO DAILY tab 12/12/18 magnesium 250 mg tablet 2
[2021-04-01 12:12] VITALS: BP 121/77; PULSE 57; RESP 18; TEMP 36.7
== END 2021-04-01 12:19 | disposition home or self-care (01) ==
PROVIDERS: Emergency Provider Nurse Practitioner Family; PCP Internal Medicine
DX: S82.832A Other fracture of upper and lower end of left fibula, initial encounter for closed fracture (principal); W00.0XXA Fall on same level due to ice and snow, initial encounter; Y92.018 Other place in single-family (private) house as the place of occurrence of the external cause; I10 Essential (primary) hypertension; E78.5 Hyperlipidemia, unspecified; Z87.891 Personal history of nicotine dependence
CPT/HCPCS: 29515; 73590; 73610; 73630; 99202; G0463

== ENCOUNTER → 2021-04-24 16:17 | Outpatient (CLI) | payer BC, SELFPAY | PROVIDERS: PCP Internal Medicine | DX: Z20.822 Contact with and (suspected) exposure to COVID-19 (principal) | CPT/HCPCS: C9803; U0003; U0005 ==

== ENCOUNTER → 2021-04-25 08:04 | Outpatient (CLI) | payer BC, OTHER, SELFPAY ==
--- NOTE | 2021-04-25 | CA_ITS ---
APPROVED REPORT Exam: Pharmacologic Technologist: Sulema Pal, Ht: 6 ft 4 in Wt: 240 lbs BSA: 2.39 m2 HR: 53 bpm BP: 112/63 mmHg Medical History Medications: Lisinopril,,,,, Coenzyme,,,,, Magnesium,,,,, MeLATONIN,,,,, RoSUVASTATIN,,,,, RIvaROXABAN,,,,, Furosemide,,,,, Stress Test Details Test: LEXISCAN HR Resting HR: 59 bpm Max Heart Rate (APMHR): 155.431996 bpm Max HR Achieved: 90 bpm Target HR (85% APMHR): 131.199951 bpm % of APMHR: 58.06 Recovery HR: 70 bpm BP Resting BP: 112/63 mmHg Max BP: 121/70 mmHg Recovery BP: 104.0/66.0 mmHg ECG Clinical Exercise duration: 04:11 min Highest Stage Achieved: Exercise capacity: 1.0 METs Stress ECG Conclusion During lexiscan pt experinced SOA, resolved in recovery. No CP noted. <1.5mm ST segment chnages. Test Summary REST . . . . . . . Sitting REST 13:14 . . 59 . 112/ 63 . . Stage 1 01:00 . . 73 . . . . Stage 2 01:00 . . 86 . 100/ 62 . . Stage 3 01:00 . . 75 . 121/ 70 . . Stage 4 01:00 . . 76 . 115/ 71 . . Stage 4 01:11 . . 80 . 115/ 71 . Stop exercise at 04:11 RECOVERY 01:00 . . 72 . 104/ 66 . . RECOVERY 02:00 . . 78 . 104/ 66 . . RECOVERY 02:49 . . 70 . 113/ 70 . . Electronically signed by : Bala Landa MD 04/25/2021 12:13:10
--- NOTE | 2021-04-25 08:07 | NM_ITS ---
APPROVED REPORT Exam: Nuclear Stress Test Indication: CAD, 1 STENT, PRE-OP Patient Location: Outpatient Stress Tech: Cydney Blanchard NM Tech:Beverly Up, ARRT, RT (R)(N) Ht: 6 ft 3 in Wt: 240 lbs HR: 53 bpm BP: 112/63 mmHg BSA: 2.37 m2 BMI: 29.9 History: CAD, 1 STENT, PRE-OP, Procedure: Patient received a 0.4 mg of intravenous Lexiscan, resting heart rate 53 bpm, resting blood pressure 112/63 mmHg, with Lexiscan maximum heart rate achived was 88 bpm which is Less than 85 % of the maximum predicted heart rate and blood pressure was 100/62 mmHg. With Lexiscan, patient denied any complaint of chest pain. Electrocardiogram Resting electrocardiogram shows sinus rhythm, with Lexiscan there is less than 1.[address] segment depression noted from the baseline EKG. The EKG portion of the Lexiscan is nondiagnostic. Cardiac Stress and Resting SPECT Images: Cardiac Stress and Resting SPECT images were obtained using technetium 99m Myoview 31.9 mCi stress and 10.22 mCi at rest. Gated SPECT for analysis of segmental wall motion and calculation of the ejection fraction also done. Cardiac stress and resting SPECT images show uniform myocardial activity without segmental perfusion abnormality, computer derived ejection fraction is 54% with no regional wall motion abnormality, right ventricle is normal size and contractility. Conclusion: 1. The EKG portion of the Lexiscan is nondiagnostic. 2. No scintigraphic evidence of reversible ischemia seen, computer derived ejection fraction is 54% with no regional wall motion abnormality, right ventricle is normal size and contractility. 3. Normal Lexiscan Myoview study. Electronically signed by : Bala Landa MD 04/25/2021 14:58:00
== END ==
PROVIDERS: PCP Internal Medicine; Visit Provider Nurse Practitioner Acute Care
DX: I25.10 Atherosclerotic heart disease of native coronary artery without angina pectoris (principal); I49.9 Cardiac arrhythmia, unspecified
CPT/HCPCS: 78452; 93017; A9502; J2785

== ENCOUNTER → 2021-06-17 07:01 | Outpatient (CLI) | payer BC, SELFPAY ==
[2021-06-17 08:08] LABS: Basophils # 0.1 K/mm3 (0-0.2); Basophils % 1.5 % (0.1-2.0); Eosinophils # 0.2 K/mm3 (0.0-0.4); Eosinophils % 3.9 % (0.1-12.0); Hematocrit 45.6 % (42.0-52.0); Hemoglobin 14.7 g/dL (14.1-18.0); Lymphocytes # 1.5 K/mm3 (0.7-4.5); Mean Corpuscular HGB Conc 32.3 g/dL (31.8-35.4); Mean Corpuscular Hemoglobin 28.9 pg (27.0-31.2); Mean Corpuscular Volume 89.3 fl (80-94); Mean Platelet Volume 7.9 fl (7.4-10.4); Monocytes # 0.4 K/mm3 (0.1-1.0); Neutrophils # 3.5 K/mm3 (1.8-7.8); Neutrophils % 61.6 % (37.0-80.0); Platelet Count 247 K/mm3 (142-424); Red Blood Count 5.11 M/mm3 (4.60-6.20); Red Cell Distribution Width 14.5 % (11.5-17.5); White Blood Count 5.6 K/mm3 (4.8-10.8)
[2021-06-17 09:37] LABS: Chloride 110 mmol/L (98-107)
[2021-06-17 09:38] LABS: Potassium 4.2 mmoL/L (3.5-5.1); Sodium 140 mmol/L (136-145)
[2021-06-17 09:40] LABS: Alanine Aminotransferase 21 U/L (12-78); Alkaline Phosphatase 85 U/L (38-126); Anion Gap 11.2 mEq/L (5-15); Aspartate Amino Transferase 24 U/L (17-59); Bilirubin,Total 0.6 mg/dl (0.2-1.3); Blood Urea Nitrogen 22 mg/dl (9-20); Carbon Dioxide 23 mmol/L (22.0-30.0); Cholesterol 127 mg/dl (140-200); Estimated Glomerular Filt Rate 55 ml/min (>60); GFR (African American) 67 ML/MIN (>60); Triglycerides 121 mg/dl (30-150); VLDL Cholesterol 24 mg/dL (0-40)
[2021-06-17 09:41] LABS: Albumin Level 3.8 g/dl (3.5-5.0); Albumin/Globulin Ratio 1.7 (1.1-1.8); Calcium 9.3 mg/dl (8.4-10.2); Chol/HDL Ratio 4.4 (1-3.5); Globulin 2.2 g/dL (1.3-3.2); Glucose 99 mg/dl (74-100); HDL Cholesterol 29 mg/dl (40-60)
[2021-06-17 09:52] LABS: Direct LDL Cholesterol 71.23 mg/dL (100-129)
[2021-06-17 13:48] LABS: Prostate Specific Ag Screen 1.5 ng/ml (0.0-4.0)
== END ==
PROVIDERS: Visit Provider Internal Medicine
DX: I25.10 Atherosclerotic heart disease of native coronary artery without angina pectoris (principal); I10 Essential (primary) hypertension; E78.5 Hyperlipidemia, unspecified; Z12.5 Encounter for screening for malignant neoplasm of prostate
CPT/HCPCS: 36415; 80053; 80061; 85025; G0103

== ENCOUNTER 2021-08-12 10:00 | Outpatient (RCR) | payer BC, OTHER, SELFPAY | END 2021-08-12 10:05 | disposition home or self-care (01) | LOC: PT 10:00 | PROVIDERS: PCP Internal Medicine | DX: S82.832D Other fracture of upper and lower end of left fibula, subsequent encounter for closed fracture with routine healing (principal) | CPT/HCPCS: 97010; 97014; 97016; 97110; 97112; 97140; 97163; 97164; 97760; G0283 ==

== ENCOUNTER → 2021-11-21 07:07 | Outpatient (CLI) | payer BC, OTHER, SELFPAY ==
[2021-11-21 08:51] LABS: Alanine Aminotransferase 25 U/L (12-78); Albumin Level 4.2 g/dl (3.5-5.0); Albumin/Globulin Ratio 1.8 (1.1-1.8); Alkaline Phosphatase 109 U/L (38-126); Anion Gap 15.7 mEq/L (5-15); Aspartate Amino Transferase 30 U/L (17-59); Bilirubin,Total 0.3 mg/dl (0.2-1.3); Blood Urea Nitrogen 22 mg/dl (9-20); Calcium 9.1 mg/dl (8.4-10.2); Carbon Dioxide 26 mmol/L (22.0-30.0); Chloride 103 mmol/L (98-107); Chol/HDL Ratio 4.1 (1-3.5); Cholesterol 134 mg/dl (140-200); Estimated Glomerular Filt Rate 61 ml/min (>60); GFR (African American) 74 ML/MIN (>60); Globulin 2.4 g/dL (1.3-3.2); Glucose 93 mg/dl (74-100); HDL Cholesterol 33 mg/dl (40-60); Potassium 4.7 mmoL/L (3.5-5.1); Sodium 140 mmol/L (136-145); Total Protein,Serum 6.6 g/dl (6.3-8.2); Triglycerides 140 mg/dl (30-150); VLDL Cholesterol 28 mg/dL (0-40)
[2021-11-21 09:02] LABS: Direct LDL Cholesterol 79.87 mg/dL (100-129)
== END ==
PROVIDERS: PCP Internal Medicine; Visit Provider Internal Medicine
DX: I25.10 Atherosclerotic heart disease of native coronary artery without angina pectoris (principal); I10 Essential (primary) hypertension; I73.9 Peripheral vascular disease, unspecified; E78.5 Hyperlipidemia, unspecified; Z98.890 Other specified postprocedural states
CPT/HCPCS: 36415; 80053; 80061

== ENCOUNTER → 2022-06-13 08:01 | Outpatient (CLI) | payer BC, OTHER, SELFPAY ==
[2022-06-13 08:53] LABS: Basophils # 0.1 K/mm3 (0-0.2); Basophils % 0.8 % (0.1-2.0); Eosinophils # 0.4 K/mm3 (0.0-0.4); Eosinophils % 5.2 % (0.1-12.0); Hematocrit 48.5 % (42.0-52.0); Hemoglobin 15.5 g/dL (14.1-18.0); Lymphocytes # 1.8 K/mm3 (0.7-4.5); Lymphocytes % 23.7 % (10-50); Mean Corpuscular Volume 87.3 fl (80-94); Mean Platelet Volume 7.6 fl (7.4-10.4); Monocytes # 0.5 K/mm3 (0.1-1.0); Monocytes % 6.6 % (1.7-9.3); Neutrophils # 4.7 K/mm3 (1.8-7.8); Neutrophils % 63.6 % (37.0-80.0); Platelet Count 202 K/mm3 (142-424); Red Blood Count 5.56 M/mm3 (4.60-6.20); Red Cell Distribution Width 14.9 % (11.5-17.5); White Blood Count 7.4 K/mm3 (4.8-10.8)
[2022-06-13 09:19] LABS: Alanine Aminotransferase 24 U/L (12-78); Albumin/Globulin Ratio 1.8 (1.1-1.8); Alkaline Phosphatase 80 U/L (38-126); Aspartate Amino Transferase 26 U/L (17-59); Bilirubin,Total 0.5 mg/dl (0.2-1.3); Blood Urea Nitrogen 20 mg/dl (9-20); Calcium 8.7 mg/dl (8.4-10.2); Carbon Dioxide 27 mmol/L (22.0-30.0); Chloride 106 mmol/L (98-107); Chol/HDL Ratio 3.8 (1-3.5); Cholesterol 129 mg/dl (140-200); Estimated Glomerular Filt Rate 67 ml/min (>60); GFR (African American) 81 ML/MIN (>60); Globulin 2.2 g/dL (1.3-3.2); Glucose 93 mg/dl (74-100); HDL Cholesterol 34 mg/dl (40-60); Sodium 140 mmol/L (136-145); Total Protein,Serum 6.2 g/dl (6.3-8.2); Triglycerides 113 mg/dl (30-150); VLDL Cholesterol 23 mg/dL (0-40)
[2022-06-13 09:31] LABS: Direct LDL Cholesterol 77.99 mg/dL (100-129)
== END ==
PROVIDERS: PCP Internal Medicine; Visit Provider Internal Medicine
DX: I25.10 Atherosclerotic heart disease of native coronary artery without angina pectoris (principal); I10 Essential (primary) hypertension; E78.5 Hyperlipidemia, unspecified; I73.9 Peripheral vascular disease, unspecified; Z98.890 Other specified postprocedural states; Z12.5 Encounter for screening for malignant neoplasm of prostate
CPT/HCPCS: 36415; 80053; 80061; 85025

== ENCOUNTER → 2022-06-19 08:08 | Outpatient (CLI) | payer BC, OTHER, SELFPAY | PROVIDERS: PCP Internal Medicine; Visit Provider Internal Medicine | DX: I25.10 Atherosclerotic heart disease of native coronary artery without angina pectoris (principal); I10 Essential (primary) hypertension; E78.5 Hyperlipidemia, unspecified; I73.9 Peripheral vascular disease, unspecified; Z98.890 Other specified postprocedural states; Z12.5 Encounter for screening for malignant neoplasm of prostate | CPT/HCPCS: 36415; G0103 ==

== ENCOUNTER → 2022-09-02 12:02 | Outpatient (CLI) | payer BC, SELFPAY ==
[2022-09-02 12:49] LABS: Basophils % 0.5 % (0.1-2.0); Eosinophils # 0.2 K/mm3 (0.0-0.4); Eosinophils % 2.2 % (0.1-12.0); Hematocrit 41.1 % (42.0-52.0); Hemoglobin 12.8 g/dL (14.1-18.0); Lymphocytes % 13.4 % (10-50); Mean Corpuscular HGB Conc 31.3 g/dL (31.8-35.4); Mean Corpuscular Hemoglobin 27.2 pg (27.0-31.2); Mean Corpuscular Volume 86.9 fl (80-94); Monocytes # 0.5 K/mm3 (0.1-1.0); Monocytes % 6.2 % (1.7-9.3); Neutrophils # 5.7 K/mm3 (1.8-7.8); Neutrophils % 77.8 % (37.0-80.0); Platelet Count 342 K/mm3 (142-424); Red Blood Count 4.73 M/mm3 (4.60-6.20); White Blood Count 7.3 K/mm3 (4.8-10.8)
[2022-09-02 13:28] LABS: Alanine Aminotransferase 51 U/L (12-78); Albumin/Globulin Ratio 1.3 (1.1-1.8); Alkaline Phosphatase 173 U/L (38-126); Anion Gap 13.4 mEq/L (5-15); Aspartate Amino Transferase 42 U/L (17-59); Bilirubin,Total 0.5 mg/dl (0.2-1.3); Blood Urea Nitrogen 18 mg/dl (9-20); Calcium 9.4 mg/dl (8.4-10.2); Carbon Dioxide 27 mmol/L (22.0-30.0); Chloride 104 mmol/L (98-107); Creatine Kinase 85 U/L (55-170); Estimated Glomerular Filt Rate 61 ml/min (>60); GFR (African American) 73 ML/MIN (>60); Glucose 90 mg/dl (74-100); Magnesium 2.1 mg/dl (1.6-2.3); Potassium 5.4 mmoL/L (3.5-5.1); Sodium 139 mmol/L (136-145)
[2022-09-02 13:31] LABS: Erythrocyte Sedimentation Rate 33 mm/hr (0-20)
[2022-09-02 13:54] LABS: Thyroid Stimulating Hormone 1.49 uIU/mL (0.465-4.68)
[2022-09-02 14:13] LABS: Vitamin B12 318 pg/mL (239-931)
== END ==
PROVIDERS: PCP Internal Medicine; Visit Provider Internal Medicine
DX: R41.3 Other amnesia (principal); R25.2 Cramp and spasm; M35.3 Polymyalgia rheumatica
CPT/HCPCS: 80053; 82550; 82607; 83735; 84443; 85025; 85651

== ENCOUNTER → 2022-11-30 07:08 | Outpatient (CLI) | payer BC, OTHER, SELFPAY ==
[2022-11-30 07:30] LABS: Basophils % 0.4 % (0.1-2.0); Eosinophils # 0.2 K/mm3 (0.0-0.4); Eosinophils % 2.1 % (0.1-12.0); Lymphocytes # 1.2 K/mm3 (0.7-4.5); Lymphocytes % 13.4 % (10-50); Mean Corpuscular HGB Conc 31.1 g/dL (31.8-35.4); Mean Corpuscular Hemoglobin 26.2 pg (27.0-31.2); Mean Corpuscular Volume 84.5 fl (80-94); Monocytes # 0.5 K/mm3 (0.1-1.0); Monocytes % 5.8 % (1.7-9.3); Neutrophils # 6.8 K/mm3 (1.8-7.8); Neutrophils % 78.3 % (37.0-80.0); Platelet Count 247 K/mm3 (142-424); Red Blood Count 5.33 M/mm3 (4.60-6.20); Red Cell Distribution Width 15.4 % (11.5-17.5); White Blood Count 8.7 K/mm3 (4.8-10.8)
[2022-11-30 08:05] LABS: Erythrocyte Sedimentation Rate 18 mm/hr (0-20)
[2022-11-30 08:41] LABS: Chloride 104 mmol/L (98-107); Potassium 4.1 mmoL/L (3.5-5.1); Sodium 135 mmol/L (136-145)
[2022-11-30 08:43] LABS: Blood Urea Nitrogen 19 mg/dl (9-20); Estimated Glomerular Filt Rate 67 ml/min (>60); GFR (African American) 81 ML/MIN (>60)
[2022-11-30 08:44] LABS: Alanine Aminotransferase 18 U/L (12-78); Albumin Level 3.5 g/dl (3.5-5.0); Albumin/Globulin Ratio 1.3 (1.1-1.8); Alkaline Phosphatase 70 U/L (38-126); Anion Gap 13.1 mEq/L (5-15); Aspartate Amino Transferase 22 U/L (17-59); Calcium 8.6 mg/dl (8.4-10.2); Carbon Dioxide 22 mmol/L (22.0-30.0); Globulin 2.6 g/dL (1.3-3.2); Glucose 94 mg/dl (74-100); Magnesium 1.8 mg/dl (1.6-2.3); Total Protein,Serum 6.1 g/dl (6.3-8.2)
[2022-11-30 09:35] LABS: Thyroid Stimulating Hormone 1.54 uIU/mL (0.465-4.68)
[2022-11-30 09:54] LABS: Vitamin B12 231 pg/mL (239-931)
== END ==
PROVIDERS: PCP Internal Medicine; Visit Provider Internal Medicine
DX: I10 Essential (primary) hypertension (principal); I25.10 Atherosclerotic heart disease of native coronary artery without angina pectoris; I73.9 Peripheral vascular disease, unspecified; E78.5 Hyperlipidemia, unspecified; R25.2 Cramp and spasm; N40.1 Benign prostatic hyperplasia with lower urinary tract symptoms; Z98.890 Other specified postprocedural states
CPT/HCPCS: 36415; 80053; 82607; 83735; 84443; 85025; 85651

== ENCOUNTER 2023-06-10 07:01 | Outpatient (CLI) | payer MEDICARE, OTHER, SELFPAY ==
[2023-06-10 07:22] LABS: Basophils # 0.1 K/mm3 (0-0.2); Eosinophils # 0.4 K/mm3 (0.0-0.4); Eosinophils % 6.5 % (0.1-12.0); Hematocrit 49.2 % (42.0-52.0); Hemoglobin 15.6 g/dL (14.1-18.0); Lymphocytes # 1.9 K/mm3 (0.7-4.5); Lymphocytes % 31.2 % (10-50); Mean Corpuscular HGB Conc 31.7 g/dL (31.8-35.4); Mean Corpuscular Hemoglobin 28.4 pg (27.0-31.2); Mean Corpuscular Volume 89.6 fl (80-94); Mean Platelet Volume 7.8 fl (7.4-10.4); Monocytes # 0.4 K/mm3 (0.1-1.0); Monocytes % 6.8 % (1.7-9.3); Neutrophils # 3.2 K/mm3 (1.8-7.8); Neutrophils % 53.5 % (37.0-80.0); Platelet Count 222 K/mm3 (142-424); Red Blood Count 5.49 M/mm3 (4.60-6.20)
[2023-06-10 08:08] LABS: Chloride 109 mmol/L (98-107); Potassium 4.4 mmoL/L (3.5-5.1); Sodium 140 mmol/L (136-145)
[2023-06-10 08:10] LABS: Alanine Aminotransferase 30 U/L (12-78); Aspartate Amino Transferase 34 U/L (17-59); Blood Urea Nitrogen 31 mg/dl (9-20); Estimated Glomerular Filt Rate 47 ml/min (>60); GFR (African American) 56 ML/MIN (>60)
[2023-06-10 08:11] LABS: Albumin Level 3.9 g/dl (3.5-5.0); Albumin/Globulin Ratio 1.7 (1.1-1.8); Alkaline Phosphatase 83 U/L (38-126); Anion Gap 9.4 mEq/L (5-15); Bilirubin,Total 0.6 mg/dl (0.2-1.3); Calcium 9.1 mg/dl (8.4-10.2); Carbon Dioxide 26 mmol/L (22.0-30.0); Chol/HDL Ratio 3.8 (1-3.5); Cholesterol 129 mg/dl (140-200); Globulin 2.3 g/dL (1.3-3.2); Glucose 103 mg/dl (74-100); HDL Cholesterol 34 mg/dl (40-60); Total Protein,Serum 6.2 g/dl (6.3-8.2); Triglycerides 138 mg/dl (30-150); VLDL Cholesterol 28 mg/dL (0-40)
[2023-06-10 08:22] LABS: Direct LDL Cholesterol 72.58 mg/dL (100-129)
[2023-06-10 09:18] LABS: Prostate Specific Ag Screen 2.3 ng/ml (0.0-4.0)
== END 2023-06-10 23:59 | disposition home or self-care (01) ==
LOC: LAB 07:04
PROVIDERS: PCP Internal Medicine; Visit Provider Internal Medicine
DX: I11.9 Hypertensive heart disease without heart failure (principal); I25.10 Atherosclerotic heart disease of native coronary artery without angina pectoris; E78.5 Hyperlipidemia, unspecified; Z12.5 Encounter for screening for malignant neoplasm of prostate
CPT/HCPCS: 36415; 80053; 80061; 85025; G0103

== ENCOUNTER 2023-11-25 07:10 | Outpatient (CLI) | payer MEDICARE, OTHER, SELFPAY ==
[2023-11-25 08:07] LABS: Chloride 104 mmol/L (98-107); Sodium 138 mmol/L (136-145)
[2023-11-25 08:08] LABS: Potassium 4.2 mmoL/L (3.5-5.1)
[2023-11-25 08:10] LABS: Alanine Aminotransferase 24 U/L (12-78); Albumin/Globulin Ratio 1.7 (1.1-1.8); Alkaline Phosphatase 85 U/L (38-126); Anion Gap 12.2 mEq/L (5-15); Aspartate Amino Transferase 24 U/L (17-59); Bilirubin,Total 0.6 mg/dl (0.2-1.3); Blood Urea Nitrogen 20 mg/dl (9-20); Carbon Dioxide 26 mmol/L (22.0-30.0); Cholesterol 121 mg/dl (140-200); Estimated Glomerular Filt Rate 60 ml/min (>60); GFR (African American) 73 ML/MIN (>60); Globulin 2.3 g/dL (1.3-3.2); Glucose 97 mg/dl (74-100); Total Protein,Serum 6.3 g/dl (6.3-8.2); Triglycerides 112 mg/dl (30-150); VLDL Cholesterol 22 mg/dL (0-40)
[2023-11-25 08:11] LABS: Calcium 9.1 mg/dl (8.4-10.2); Chol/HDL Ratio 3.9 (1-3.5); HDL Cholesterol 31 mg/dl (40-60)
== END 2023-11-25 23:59 | disposition home or self-care (01) ==
LOC: LAB 07:11
PROVIDERS: PCP Internal Medicine; Visit Provider Internal Medicine
DX: E78.5 Hyperlipidemia, unspecified (principal); N28.9 Disorder of kidney and ureter, unspecified; I10 Essential (primary) hypertension
CPT/HCPCS: 36415; 80053; 80061

== ENCOUNTER 2024-06-05 06:55 | Outpatient (CLI) | payer MEDICARE, OTHER, SELFPAY ==
[2024-06-05 07:31] LABS: Basophils % 0.7 % (0.1-2.0); Eosinophils # 0.2 K/mm3 (0.0-0.4); Eosinophils % 3.8 % (0.1-12.0); Hematocrit 41.5 % (42.0-52.0); Hemoglobin 13.6 g/dL (14.1-18.0); Lymphocytes # 1.7 K/mm3 (0.7-4.5); Mean Corpuscular HGB Conc 32.8 g/dL (31.8-35.4); Mean Corpuscular Hemoglobin 29.2 pg (27.0-31.2); Mean Corpuscular Volume 89.2 fl (80-94); Mean Platelet Volume 9.8 fl (7.4-10.4); Monocytes # 0.5 K/mm3 (0.1-1.0); Monocytes % 8.1 % (1.7-9.3); Neutrophils # 3.1 K/mm3 (1.8-7.8); Neutrophils % 56.2 % (37.0-80.0); Nucleated Red Blood Cells # 0 10^3/uL; Nucleated Red Blood Cells % 0 %; Platelet Count 185 K/mm3 (142-424); Red Blood Count 4.65 M/mm3 (4.60-6.20); Red Cell Distribution Width-SD 49.2 fL; White Blood Count 5.6 K/mm3 (4.8-10.8)
[2024-06-05 07:53] LABS: Albumin Level 3.8 g/dl (3.5-5.0)
[2024-06-05 07:54] LABS: Chloride 108 mmol/L (98-107); Potassium 4.1 mmoL/L (3.5-5.1); Sodium 142 mmol/L (136-145)
[2024-06-05 07:56] LABS: Alanine Aminotransferase 23 U/L (12-78); Anion Gap 13.1 mEq/L (5-15); Aspartate Amino Transferase 29 U/L (17-59); Blood Urea Nitrogen 17 mg/dl (9-20); Carbon Dioxide 25 mmol/L (22.0-30.0); Estimated Glomerular Filt Rate 60 ml/min (>60); GFR (African American) 73 ML/MIN (>60)
[2024-06-05 07:57] LABS: Albumin/Globulin Ratio 1.5 (1.1-1.8); Alkaline Phosphatase 69 U/L (38-126); Bilirubin,Total 0.6 mg/dl (0.2-1.3); Calcium 8.7 mg/dl (8.4-10.2); Chol/HDL Ratio 3.4 (1-3.5); Cholesterol 115 mg/dl (140-200); Globulin 2.6 g/dL (1.3-3.2); Glucose 90 mg/dl (74-100); HDL Cholesterol 34 mg/dl (40-60); Total Protein,Serum 6.4 g/dl (6.3-8.2); Triglycerides 103 mg/dl (30-150); VLDL Cholesterol 21 mg/dL (0-40)
[2024-06-05 08:08] LABS: Direct LDL Cholesterol 58.08 mg/dL (100-129)
== END 2024-06-05 23:59 | disposition home or self-care (01) ==
LOC: LAB 06:56
PROVIDERS: PCP Internal Medicine; Visit Provider Internal Medicine
DX: E78.5 Hyperlipidemia, unspecified (principal); I10 Essential (primary) hypertension; I25.10 Atherosclerotic heart disease of native coronary artery without angina pectoris; Z95.820 Peripheral vascular angioplasty status with implants and grafts
CPT/HCPCS: 36415; 80053; 80061; 85025

== ENCOUNTER 2024-07-03 12:32 | Outpatient (CLI) | payer MEDICARE, OTHER, SELFPAY ==
--- NOTE | 2024-07-03 13:00 | CT_ITS ---
FINAL REPORT TECHNIQUE: multiple axial CT images were performed from the foramen magnum to the vertex without enhancement. This study was performed with techniques to keep radiation doses as low as reasonably achievable (ALARA). Individualized dose reduction techniques using automated exposure control or adjustment of mA and/or kV according to the patient's size were employed. CLINICAL HISTORY: SHORT TERM MEMORY LOSS COMPARISON: None FINDINGS: The ventricles are mildly enlarged. There is mild diffuse atrophy. There is mild periventricular white matter change likely related to small vessel disease. There is no evidence of hemorrhage. No masses are identified. No extra-axial fluid is seen. The sinuses are normal. IMPRESSION: Mild atrophy and chronic changes without acute process. Reviewed, Interpreted and Dictated by Christian Cervantes MD Transcribed by Belle Almaraz Authenticated and [facility]
== END 2024-07-03 23:59 | disposition home or self-care (01) ==
LOC: RAD 12:32
PROVIDERS: PCP Internal Medicine; Visit Provider Internal Medicine
DX: G31.9 Degenerative disease of nervous system, unspecified (principal); R41.3 Other amnesia
CPT/HCPCS: 70450

== ENCOUNTER 2024-12-12 06:56 | Outpatient (CLI) | payer MEDICARE, OTHER, SELFPAY ==
--- OUTSIDE RECORDS SUMMARY | 2024-11-29 15:15 | XMS_ITS | Encounter Summary ---
Author Organization [employer] ([place], [place], [place], [place]) Address [address] [place] [address] Care Team Providers Care Regional Airline Pilot Name Role Phone Kel Gagnon MD Primary Care Provider [phone] Reason for Referral * Consultation (Routine) - New Request Specialty Diagnoses / Procedures Referred By Hyun meyers Referred To Contact Behavioral Health Diagnoses Moderate late onset Alzheimer's dementia, unspecified whether behavioral, psychotic, or mood disturbance or anxiety (HCC) Other fatigue Avitaminosis D Idiopathic polyneuropathy Kimberly Snell MD [address] [place] [address] Phone: tel: fax: Ivonne Weiss, MS [address] [place] [address] Phone: tel: fax: Referral ID Status Reason Start Date Expiration Date Visits Requested Visits Authorized [id number] New Request Specialty Services Required 11/30/2024 11/30/2025 1 1 Reason for Visit * Reason Comments New Patient * Consultation (Routine) - Closed Specialty Diagnoses / Procedures Referred By Hyun meyers Referred To Contact Neurology Diagnoses Mild cognitive impairment New PT - Mild Cognitive Impairment Procedures Scheduled Kel Gagnon MD [address] [place] [address] Phone: tel: fax: [facility] - [place] [address] [place] [address] Phone: tel: fax: Referral ID Status Reason Start Date Expiration Date V isits Requested Visits Authorized [id number] Closed Specialty Services Required 08/17/2024 08/17/2025 1 1 Encounter Details Date Type Department Care Team (Latest Contact Info) Description 11/29/2024 3:15 PM EDT Office Visit [facility] Neurology - [place] [address] [place] [address] Kel Gagnon MD [address] [place] [address] Kimberly Snell MD [address] [place], [place] [id number] Moderate late onset Alzheimer's dementia, unspecified whether behavioral, psychotic, or mood disturbance or anxiety (HCC) (Primary Dx); Other fatigue; Avitaminosis D; Idiopathic polyneuropathy Social History Tobacco Use Types Packs/Day Years Used Date Smoking Tobacco: Never Smokeless Tobacco: Never Tobacco Cessation:Counseling Given: Not Answered Alcohol Use Standard Drinks/Week Comments Never 0 (1 standard drink = 0.6 oz pur e alcohol) Family and Community Support Answer Severiano e Recorded Help with Day to Day Activities Not on file 03/12/2023 Feeling Lonely or Isolated Not on file 03/12 Educational Attainment Answer Date Marty rded Speak language other than Arabic at home Not on file 03/12/2023 Want help with school or training Not on file 03/12/2023 Substance Use Answer Date Recorded Used prescription meds for non-medical reasons N ot on file 03/12/2023 Used illegal drugs past 12 months Not on file 03/12/2023 Sex and Gender Information Value Date Recorded Sex Assigned at Not on file Legal Sex Male 6:12 PM CDT Gender Identity Not on file Sexual Orientation Not on file documented as of this encounter Last Filed Vital Signs Vital Sign Reading Time Taken Comments Blood Pressure 106/61 11/29/2024 3:05 PM EDT Pulse 55 11/29/2024 3:05 PM EDT Temperature - - Respiratory Rate - - Oxygen Saturation - - Inhaled Oxygen Concentration - - Weight 103.4 kg (228 lb) 11/29/2024 3:05 PM EDT Height 190.5 cm (6' 3 ) 11/29/2024 3:05 PM EDT Body Mass Index 28.5 11/29/2024 3:05 PM EDT documented in this encounter Progress Notes * Kimberly Snell MD - 11/29/2024 3:15 PM EDT Subjective Gomez Beal is a 69 y.o. male The following consent language was reviewed verbally with the patient in full: Aleja, I am using a tool to help me do my notes. It is recording our conversation and creates my notes automatically and I can focus on our discussion instead of typing in the room. Is that okay with you? The patient demonstrated understanding and verbally agreed to the above consent language. All questions were addressed, and the patient provided informed consent to proceed. Chief Complaint Patient presents with New Patient I have reviewed and/or updated the following: Tobacco Allergies Meds Problems Med Hx Surg Hx Fam Hx History of Present Illness Gomez Beal is a 69 year old male who presents with memory concerns. He is accompanied by his . He has been experiencing memory issues, particularly with short-term memory, for approximately two and a half years. He has difficulty recalling past events and occasionally requires prompting to remember familiar locations. No trouble with conversations or remembering people's names, although he admits to being part of a family that struggles with names. His notes that he sometimes repeats h imself and seems to have more difficulty with memory in the evenings, a phenomenon she refers to as'sundowning'. 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 His noticed an increase in forgetfulness during his last years of work, where he would forget routine tasks multiple times a week. Despite these memory issues, he remains independentin most daily activities, although his manages the household bills and organizes his medications in a pillbox. He reports sleeping well at home, though he occasionally wakes up during the night. He acknowledgesfeeling more anxious and agitated than he used to, which his also confirms, noting a change inhis personality where he gets upset more easily. His past medical history includes high blood pressure, a heart stent, and a repaired aortic aneurysm. He reports that he has not experienced a heart attack or stroke. He is currently on a monthly [id number], initially prescribed due to low levels and associated cramping. His mentions that his father had memory issues, but it is unclear if this was related to his service in the [employer]. In terms of current medications, he takes his medications independently, except for occasional missed doses when eating out. He is due for his next B12 injection soon. Review of Systems All other systems reviewed and are negative. . Radiology Results (last 7 days) No results found for the last 168 hours. No visits with results within 1 Day(s) from this visit. Latest known visit with results is: Historic Encounter on 04/05/2018 Component Date Value Ref Range Status Glucose Level 04/05/2018 88 74 - 106 mg/dL Final Comment: [employer] has become aware of sulfasalazine and sulfapyridine drug interference in the assays ALT, AST, T4, CKMB, glucose, and ammonia. The probability of misinterpretation of results for the assays is remote and would be limited to scenarios where a patient has taken the drug and had a blood sample drawn before clearance of the drug to a level that does not interfere with laboratory testing. Venipuncture should occur prior to administration of the drug. Blood Urea Nitrogen 04/05/2018 16 7 - 22 mg/dL Final Creatinine Level 04/05/2018 1.00 0.70 - 1.30 mg/dL Final Sodium Level 04/05/2018 138 136 - 146 mmol/L Final Potassium Level 04/05/2018 4.0 3.5 - 5.1 mmol/L Final Chloride Level 04/05/2018 108 102 - 112 mmol/L Final Carbon Dioxide Level 04/05/2018 23 21 - 32 mmol/L Final Anion Gap 04/05/2018 11 9 - 20 Final Calcium Level 04/05/2018 7.7 (L) 8.4 - 10.1 mg/dL Final Bun/Creatinine 04/05/2018 16.0 8.0 - 20.0 Final eGFR NonAfrican 04/05/2018 >60 >=60 mL/min/1.73m2 Final Comment: GFR <60 suggests chronic kidney disease, if found over 3 month period. GFR <15 indicates renal failure. eGFR 04/05/2018 >60 >=60 mL/min/1.73m2 Final Comment: GFR <60 suggests chronic kidney disease, if found over 3 month period. GFR <15 indicates renal failure. Results LABS Vitamin B12: Low (2022) RADIOLOGY Head CT: Good quality, no significant cerebrovascular accidents or atrophy Objective BP 106/61 Pulse 55 Ht 1.905 m (6' 3 ) Wt 103.4 kg (228 lb) BMI 28.50 kg/m?? Neurological Exam Mental Status Awake, alert and oriented to person, place and time. Speech is normal. Language is fluent with no aphasia. MOCA 30 [place] ADL 4/60. Cranial Nerves CN III, IV, : Extraocular movements intact bilaterally. Normal lids and orbits bilaterally. Pupils equal round and reactive to light bilaterally. CN V: Facial sensation is normal. CN VII: Full and symmetric facial movement. CN VIII: Hearing is normal. CN IX, X: Palate elevates symmetrically. Normal gag reflex. CN XI: Shoulder shrug strength is normal. CN XII: Tongue midline without atrophy or fasciculations. Motor Normal muscle bulk throughout. Normal muscle tone. Strength is 5/5 throughout all four extremities. Sensory Light touch is normal in upper and lower extremities. Coordination [id number], rapid alternating movements and pfic-kg-ndut normal bilaterally without dysmetria. Gait Casual gait is normal including stance, stride, and arm swing. Able to rise from chair without using arms. Physical Exam Vitals and nursing note reviewed. Constitutional: Appearance: Normal appearance. Eyes: General: Lids are normal. Extraocular Movements: Extraocular movements intact. Conjunctiva/sclera: Conjunctivae normal. Pupils: Pupils are equal, round, and reactive to light. Cardiovascular: Rate and Rhythm: Normal rate and regular rhythm. Pulmonary: Effort: Pulmonary effort is normal. Breath sounds: Normal breath sounds. Musculoskeletal: Cervical back: Normal range of motion and neck supple. Skin: General: Skin is warm and dry. Neurological: Motor: Motor strength is normal. Coordination: Coordination is intact. Psychiatric: Mood and Affect: Mood normal. Speech: Speech normal. Behavior: Behavior normal. Thought Content: Thought content normal. Judgment: Judgment normal. Assessment & Plan Cognitive impairment: Had significant difficulty with memory and visual-spatial difficulties. CT scan negative for significant pathology. Has known B12 deficiency but not checked since 2022. Memory test indicated some difficulty; further evaluation required. - Order blood work for vitamin deficiencies and other causes of memory loss. - Refer to psychologist for comprehensive memory test. - Prescribe memantine twice daily for memory support. Did not prescribe Donepezil due to bradycardia. -Consider sleep study Vitamin B12 deficiency Deficiency noted with previous low levels affecting memory. On monthly B12 injections; levels need re-evaluation. - Continue monthly vitamin B12 injections. - Recheck vitamin B12 levels with blood work. Diagnoses and all orders for this visit: Moderate late onset Alzheimer's dementia, unspecified whether behavioral, psychotic, or mood disturbance or anxiety (HCC) - pTau-217/AB42 Ratio - Vitamin B12 w reflex <400 - Vitamin D, 25-Hydroxy - Comprehensive metabolic panel - CBC with automated diff - Vitamin B1 (Thiamine), Whole Blood, LC/MS/MS - Vitamin B6, Plasma - Ambulatory referral to Behavioral Health; Future - memantine (NAMENDA) 10 MG tablet; 1/2 tab po BID x 1 week then 1 tab po BID. - APOE ALZHEIMER'S RISK Other fatigue - pTau-217/AB42 Ratio - Vitamin B12 w reflex <400 - Vitamin D, 25-Hydroxy - Comprehensive metabolic panel - CBC with automated diff - Vitamin B1 (Thiamine), Whole Blood, LC/MS/MS - Vitamin B6, Plasma - Ambulatory referral to Behavioral Health; Future - memantine (NAMENDA) 10 MG tablet; 1/2 tab po BID x 1 week then 1 tab po BID. Avitaminosis D - pTau-217/AB42 Ratio - Vitamin B12 w reflex <400 - Vitamin D, 25-Hydroxy - Comprehensive metabolic panel - CBC with automated diff - Vitamin B1 (Thiamine), Whole Blood, LC/MS/MS - Vitamin B6, Plasma - Ambulatory referral to Behavioral Health; Future - memantine (NAMENDA) 10 MG tablet; 1/2 tab po BID x 1 week then 1 tab po BID. Idiopathic polyneuropathy - pTau-217/AB42 Ratio - Vitamin B12 w reflex <400 - Vitamin D, 25-Hydroxy - Comprehensive metabolic panel - CBC with automated diff - Vitamin B1 (Thiamine), Whole Blood, LC/MS/MS - Vitamin B6, Plasma - Ambulatory referral to Behavioral Health; Future - memantine (NAMENDA) 10 MG tablet; 1/2 tab po BID x 1 week then 1 tab po BID. Return in about 2 months (around 01/29/2025) for can bw with me or GRECIA, I can see 01/29 in am . documented in this encounter Plan of Treatment Upcoming Encounters Date Type Department Care Team (Late st Contact Info) Description 01/29/2025 11:30 AM EST Office Visit [facility] Neurology - [facility] [address] [place] [address] Kimberly Snell MD [address] [place] [address] Scheduled Orders Name Type Priority Associated Diagnoses Orde r Schedule pTau-217/AB42 Ratio Lab Routine Moderate late onset Alzheimer's dementia, unspecified whether behavioral, psychotic, or mood disturbance or anxiety (HCC) Other fatigue Avitaminosis D Idiopathic polyneuropathy Ordered: 11/29/2024 Vitamin B12 w reflex <400 Lab Routine Moderate late onset Alzheimer's dementia, unspecified whether behavioral, psychotic, or mood disturbance or anxiety (HCC) Other fatigue Avitaminosis D Idiopathic polyneuropathy Ordered: 11/29/2024 Vitamin D, 25-Hydroxy Lab Routine Moderate late onset Alzheimer's dementia, unspecified whether behavioral, psychotic, or mood disturbance or anxiety (HCC) Other fatigue Avitaminosis D Idiopathic polyneuropathy Ordered: 11/29/2024 Comprehensive metabolic panel Lab Routine Moderate late onset Alzheimer's dementia, unspecified whether behavioral, psychotic, or mood disturbance or anxiety (HCC) Other fatigue Avitaminosis D Idiopathic polyneuropathy Ordered: 11/29/2024 CBC with automated diff Lab Routine Moderate late onset Alzheimer's dementia, unspecified whether behavioral, psychotic, or mood disturbance or anxiety (HCC) Other fatigue Avitaminosis D Idiopathic polyneuropathy Ordered: 11/29/2024 Vitamin B1 (Thiamine), Whole Blood, LC/MS/MS Lab Routine Moderate late onset Alzheimer's dementia, unspecified whether behavioral, psychotic, or mood disturbance or anxiety (HCC) Other fatigue Avitaminosis D Idiopathic polyneuropathy Ordered: 11/29/2024 Vitamin B6, Plasma Lab Routine Moderate late onset Alzheimer's dementia, unspecified whether behavioral, psychotic, or mood disturbance or anxiety (HCC) Other fatigue Avitaminosis D Idiopathic polyneuropathy Ordered: 11/29/2024 APOE ALZHEIMER'S RISK Lab Routine Moderate late onset Alzheimer's dementia, unspecified whether behavioral, psychotic, or mood disturbance or anxiety (HCC) Ordered: 11/29/2024 Scheduled Referrals Name Type Priority Associated Diagnoses Orde r Schedule Ambulatory referral to Behavioral Health Outpatient Referral Routine Moderate late onset Alzheimer's dementia, unspecified whether behavioral, psychotic, or mood disturbance or anxiety (HCC) Other fatigue Avitaminosis D Idiopathic polyneuropathy Expected: 11/30/2024, Expires: 11/29/2025 documented as of this encounter Visit Diagnoses Diagnosis Moderate late onset Alzheimer's dementia, unspecified whether behavioral, psychotic, or mood disturbance or anxiety (HCC)- Primary Other fatigue Avitaminosis D Unspecified vitamin D deficiency Idiopathic polyneuropathy documented in this encounter Care Teams Regional Airline Pilot Relationship Specialty Start Date End Date Kel Gagnon MD [address] [place] [address] PCP - General General Internal Medicine 10/12/22 documented as of this encounter
--- OUTSIDE RECORDS SUMMARY | 2024-12-12 07:00 | XMS_ITS | Encounter Summary ---
Author Organization [employer] ([place], [place], [place], [place]) Address [address] [place] [address] Care Team Providers Care Senior Microsoft Consultant Name Role Phone Kel Gagnon MD Primary Care Provider [phone] Reason for Referral * Consultation (Routine) - Closed Specialty Diagnoses / Procedures Referred By Contac t Referred To Contact Neurology Diagnoses Mild cognitive impairment New PT - Mild Cognitive Impairment Procedures Scheduled Kel Gagnon MD [address] [place] [address] Phone: tel: fax: [facility] Neurology [address] [place] [address] Phone: tel: fax: Referral ID Status Reason Start Date Expiration Date V isits Requested Visits Authorized [id number] Closed Specialty Services Required 08/17/2024 08/17/2025 1 1 Encounter Details Date Type Department Care Team (Late st Contact Info) Description 08/17/2024 Outside Orders [facility] [place] [address] [place] [address] Kel Gagnon MD [address] [place] [address] Mild cognitive impairment (Primary Dx) Social History Tobacco Use Types Packs/Day Years Used Date Smoking Tobacco: Never Smokeless Tobacco: Never Alcohol Use Standard Drinks/Week Comments Never 0 (1 standard drink = 0.6 oz pur e alcohol) Family and Community Support Answer Severiano e Recorded Help with Day to Day Activities Not on file 03/12/2023 Feeling Lonely or Isolated Not on file 03/12 Educational Attainment Answer Date Marty rded Speak language other than Hungarian at home Not on file 03/12/2023 Want [...] on file documented as of this encounter Plan of Treatment Upcoming Encounters Date Type Department Care Team (Late st Contact Info) Description 01/29/2025 11:30 AM EST Office Visit [facility] Neurology - [facility] [address] [place] [id number] Kimberly Snell MD [address] [place] [address] Scheduled Referrals Name Type Priority Associated Diagnoses Order Schedule Ambulatory referral to Neurology Outpatient Referral Routine Mild cognitive impairment Ordered: 08/17/2024 documented as of this encounter Visit Diagnoses Diagnosis Mild cognitive impairment- Primary Mild cognitive impairment, so stated documented in this encounter Care Teams Senior Microsoft Consultant Relationship Specialty Start Date End Date Kel Gagnon MD [address] [place] [address] PCP - General General Internal Medicine 10/12/22 documented as of this encounter
--- OUTSIDE RECORDS SUMMARY | 2024-12-12 07:00 | XMS_ITS | Encounter Summary ---
Author Organization [employer] ([place], [place], [place], [place]) Address [address] [place] [address] Care Team Providers Care Storage Battery Inspector And Tester Name Role Phone Kel Gagnon MD Primary Care Provider [phone] Encounter Details Date Type Department Care Team (Late st Contact Info) Description 04/04/2018 Transcribed Document [facility] Family Medicine [address] [place] [address] ProviderElizabeth MD [address] [place] [address] Social History Tobacco Use Types Packs/Day Years Used Date Smoking Tobacco: Never Assessed Sex and Gender Information Value Date Recorded Sex Assigned at Not on file Legal Sex Male 6:12 PM CDT Gender Identity Not on file Sexual Orientation Not on file documented as of this encounter Miscellaneous Notes * Cerner Conversion Note - Historical ProviderMD - 04/04/2018 1:07 PM TURN OPERATOR Pain Assessment Entered On: 04/04/2018 20:11 EST Performed On: 04/04/2018 15:05 EST by BLANCHE Farias RN Intervention Information: morphine Performed by BLANCHE Farias RN on 04/04/2018 14:35:00 EST morphine,2mg IV Push,Left Hand,Pain (Moderate 4-6) Pain Assessment Pain Assessment : Follow-up assessment Pain Scale Goal : 3 Pain Improved by : Medication Pain Improved by Intervention : Yes BLANCHE Farias RN - 04/04/2018 20:11 EST documented in this encounter Plan of Treatment Upcoming Encounters Date Type Department Care Team (Late st Contact Info) Description 01/29/2025 11:30 AM EST Office Visit [facility] Neurology - [place] [address] [place] [id number] Kimberly Snell MD [address] [place] [address] documented as of this encounter Visit Diagnoses Not on filedocumented in this encounter Care Teams Storage Battery Inspector And Tester Relationship Specialty Start Date End Date Kel Gagnon MD [address] [place] [address] PCP - General General Internal Medicine 10/12/22 documented as of this encounter
--- OUTSIDE RECORDS SUMMARY | 2024-12-12 07:00 | XMS_ITS | Encounter Summary ---
Author Organization [employer] ([place], [place], [place], [place]) Address [address] [place] [address] Care Team Providers Care Printed Circuit Designer Name Role Phone Kel Gagnon MD Primary Care Provider [phone] Encounter Details Date Type Department Care Team (Late st Contact Info) Description 12/01/2024 Orders Only [facility] Neurology [address] [place] [address] Provider, MD Elizabeth [address] [place] [address] Social History Tobacco Use Types Packs/Day Years [...] Date Marty rded Speak language other than Thai at home Not on file 03/12/2023 Want [...] Description 01/29/2025 11:30 AM EST Office Visit [facility] Neurology - [place] [address] [place] [address] Kimberly Snell MD [address] [place] [address] documented as of this encounter Procedures Procedure Name Priority Date/Time Associated Diagnosis Comments EXTERNAL IMAGING - CT Routine 07/03/2024 9:54 AM EDT documented in this encounter Results * EXTERNAL IMAGING - CT (07/03/2024 9:54 AM EDT) Anatomical Region Laterality Modality Other us Historical Provider HEALTH MAINTENANCE Final Result documented in this encounter Visit Diagnoses Not on filedocumented in this encounter Care Teams Printed Circuit Designer Relationship Specialty Start Date End Date Kel Gagnon MD [address] [place] [address] PCP - General General Internal Medicine 10/12/22 documented as of this encounter
--- OUTSIDE RECORDS SUMMARY | 2024-12-12 07:00 | XMS_ITS | Encounter Summary ---
Author Organization [employer] ([place], [place], [place], [place]) Address [address] [place] [address] Care Team Providers Care Report Checker Name Role Phone Kel Gagnon MD Primary Care Provider [phone] Encounter Details Date Type Department Care Team (Late st Contact Info) Description 04/04/2018 Transcribed Document [facility] [place] [address] [place] [address] ProviderElizabeth MD [address] [place] [address] Social History Tobacco Use Types Packs/Day Years Used Date Smoking Tobacco: Never Assessed Sex and Gender Information Value Date Recorded Sex Assigned at Not on file Legal Sex Male 6:12 PM CDT Gender Identity Not on file Sexual Orientation Not on file documented as of this encounter Miscellaneous Notes * Cerner Conversion Note - Elizabeth ProviderMD - 04/04/2018 1:07 PM BACK OFFICE MEDICAL ASSISTANT Evaluation, Occupational Therapy Entered On: 04/05/2018 13:10 EST Performed On: 04/05/2018 10:52 EST by LINDSAY MOISE OTR/Benjamín General Information, OT Co-treated by, OT : Physical Therapist General Information Comment, OT : Diagnosis: AAA repair LINDSAY MOISE OTR/Benjamín - 04/05/2018 14:17 EST Visit Type, OT : Initial evaluation Patient Orders : Order Date Order Ordering 04/04/2018 13:07 Consult to Occupational Therapy Ordered By: DARIO JEAN MD-JOSE G Active Diagnoses : 04/04/2018 00:00 Abdominal aortic aneurysm, without rupture Admission Date : 04/04/2018 13:07 Personal Devices : Personal Devices No Devices Recorded Assistive Devices : Assistive Devices No Devices Recorded LINDSAY MOISE OTR/L 04/05/2018 13:09 EST General Status Patient Received Status : Up in chair Treatment Start Time : 04/05/2018 10:41 EST Patient Left Status : Up in chair, RN/PCT informed, All needs met and within reach Treatment End Time : 04/05/2018 10:52 EST Treatment Time : 11 Minute(s) LINDSAY MOISE OTR/L - 04/05/2018 14:17 EST History and Environment, OT Living Situation, Therapy : Home Patient Lives With : Spouse Persons Assisting Patient at Home : Spouse Persons Providing Information : Patient Home Equipment, Therapy : Walker Walker : Walker, front wheel Home Setup : One story Stairs : Yes Stair Location(s) : Outside Outside Stairs, Number of Steps : 3 LINDSAY MOISE OTR/L - 04/05/2018 14:17 EST Prior LOF Bathing, OT : Independent Prior LOF Bed Mobility : Independent Prior LOF Upper Body Dressing, OT : Independent Prior LOF Lower Body Dressing, OT : Independent Prior LOF Toileting : Independent Prior LOF Transfer : Independent Prior LOF Grooming, OT : Independent Prior LOF for IADLs, OT : Independent LINDSAY MOISE OTR/L 04/05/2018 14:17 EST Upper Extremity Right UE Active ROM : WFL Right UE Strength : WFL Left UE Active ROM : WFL Left UE Strength : WFL LINDSAY MOISE OTR/L 04/05/2018 14:17 EST Self Care/Home Management, OT Self Feeding Assist Level, OT : Independent, complete Grooming Assist Level, OT : Independent, complete Bathing Assist Level, OT : Independent, complete Upper Body Dressing Assist Level, OT : Independent, complete Lower Body Dressing Assist Level, OT : Independent, complete Toileting Assist Level : Independent, complete LINDSAY MOISE OTR/L - 04/05/2018 14:17 EST Functional Mobility Mobility Grid Sit to Stand : Rehab Complete independence Bed to Chair : Rehab Complete independence Stand to Sit : Rehab Complete independence LINDSAY MOISE OTR/L 04/05/2018 14:17 EST AM PAC Daily Activity Putting On/Taking Off Lower Body Clothes : None Bathing (Washing, Rinsing, Drying) : None Toileting Includes Toilet, Bedpan, Urinal : None Putting On/Taking Off Upper Clothing : None Taking Care of Grooming : None Eating Meals : None [facility] Daily Activity Raw Score : 24 LINDSAY MOISE OTR/L - 04/05/2018 14:17 EST Image 3 - Images currently included in the form version of this document have not been included in the text rendition version of the form. Functional Limitation Reporting, OT Functional Limitation Visit Type, OT : Initial evaluation Self Care G8987 - Current Mod, OT : 0 percent impaired, limited or restricted (CH) Self Care G8988 - Proj Goal Mod, OT : 0 percent impaired, limited or restricted (CH) Self Care G8989 - Discharge Mod, OT : 0 percent impaired, limited or restricted (CH) LINDSAY MOISE OTR/L - 04/05/2018 14:17 EST Cognition Assessment, OT Orientation : Oriented x 4 LINDSAY MOISE OTR/L - 04/05/2018 14:17 EST Plan of Care, OT OT Tx Plan/Goals Established w Patient : No LINDSAY MOISE OTR/L - 04/05/2018 14:17 EST Treatment Note Subjective Comment : Pt agreeable Patient's Response to Treatment : Pt tolerated evaluation well Additional Objective Information : Pt sitting in chair upon arrival. Pt ambulated in room and hallway indpendently with no AD. Pt returned to room, left with needs met and CL in reach. Assessment : Pt to dc home today Plan for Treatment : Eval only LINDSAY MOISE OTR/L - 04/05/2018 14:17 EST Pain Assessment Pain Score Pre-Intervention : 0 LINDSAY MOISE OTR/L - 04/05/2018 14:17 EST Image 1 - Images currently included in the form version of this document have not been included in the text rendition version of the form. Anticipated Discharge Needs, OT/PT Anticipated Discharge to : Home, with family care LINDSAY MOISE OTR/L - 04/05/2018 14:17 EST [place] OT Charges OT Eval Low Complexity : 1 LINDSAY MOISE OTR/L - 04/05/2018 14:17 EST Electronically signed by Katja [facility] Conversion Dispatcher Chief Coal Slurry Cerner at 06/11/2022 12:09 PM CDT documented in this encounter Plan of Treatment Upcoming Encounters Date Type Department Care Team (Late st Contact Info) Description 01/29/2025 11:30 AM EST Office Visit [facility] Neurology - [place] [address] [place] [address] Kimberly Snlel MD [address] [facility] [address] [place] [address] documented as of this encounter Visit Diagnoses Not on filedocumented in this encounter Care Teams Report Checker Relationship Specialty Start Date End Date Kel Gagnon MD [address] [place] [address] PCP - General General Internal Medicine 10/12/22 documented as of this encounter
--- OUTSIDE RECORDS SUMMARY | 2024-12-12 07:00 | XMS_ITS | Encounter Summary ---
Author Organization [employer] ([place], [place], [place], [place]) Address [address] [place] [address] Care Team Providers Care Crepe Laminator Operator Name Role Phone Kel Gagnon MD Primary Care Provider [phone] Encounter Details Date Type Department Care Team (Latest Contact Info) Description 11/29/2024 Travel Social History Tobacco Use Types Packs/Day Years [...] Date Marty rded Speak language other than Tajik at home Not on file 03/12/2023 Want [...] Description 01/29/2025 11:30 AM EST Office Visit [facility] Neurology - [facility] [address] [place] [address] Kimberly Snell MD [address] [place] [address] documented as of this encounter Visit Diagnoses Not on filedocumented in this encounter Care Teams Crepe Laminator Operator Relationship Specialty Start Date End Date Kel Gagnon MD [address] [place] [address] PCP - General General Internal Medicine 10/12/22 documented as of this encounter
--- OUTSIDE RECORDS SUMMARY | 2024-12-12 07:00 | XMS_ITS | Encounter Summary ---
Author Organization [employer] ([place], [place], [place], [place]) Address [address] [place] [address] Care Team Providers Care Turf And Grounds Supervisor Name Role Phone Kel Gagnon MD Primary Care Provider [phone] Encounter Details Date Type Department Care Team (Late st Contact Info) Description 04/04/2018 Transcribed Document [facility] [place] [address] [place] [address] ProviderElizabeth MD [address] [place] [address] Social History Tobacco Use Types Packs/Day Years Used Date Smoking Tobacco: Never Assessed Sex and Gender Information Value Date Recorded Sex Assigned at Not on file Legal Sex Male 6:12 PM CDT Gender Identity Not on file Sexual Orientation Not on file documented as of this encounter Miscellaneous Notes * Cerner Conversion Note - Elizabeth ProviderMD - 04/04/2018 12:15 PM PSYCHOTHERAPIST [facility] Main OR Preop Summary Primary Physician: DARIO JEAN MD-SUR Finalized Date/Time: 04/04/18 14:42:00 Pt. Name: GOMEZ BEAL ROX Carvajal/Sex: 1955 Male Med Rec #: [id number] Physician: DARIO JEAN MD-SUR Financial #: [id number] Pt. Type: O Room/Bed: [facility]/1 Admit/Disch: 04/04/18 06:17:00 - Institution: [facility] PreOp Case Times Entry 1 In Preop 04/04/18 08:00:00 Ready for Holding n/a Room Patient Ready for 04/04/18 09:55:00 Surgery Patient Out of Preop 04/04/18 11:45:00 Patient Out of n/a Holding Room Last Modified By: HANG XIAO, SAVANNAH 04/04/18 14:41:55 [facility] PreOp Case Times Audit 04/04/18 14:41:55 City Planning Teacher: LISA Modifier: MCGRANM <+> 1 Patient Out of Preop Finalized By: HANG XIAO, RN Document Signatures Signed By: HANG XIAO RN 04/04/18 14:42 Electronically signed by Katja [facility] Conversion Tissue Packer Cerner at 06/11/2022 12:13 PM CDT documented in this encounter Plan of Treatment Upcoming Encounters Date Type Department Care Team (Late st Contact Info) Description 01/29/2025 11:30 AM EST Office Visit [facility] Neurology - [place] [address] [place] [address] Kimberly Snell MD [address] [place] [address] documented as of this encounter Visit Diagnoses Not on filedocumented in this encounter Care Teams Turf And Grounds Supervisor Relationship Specialty Start Date End Date Kel Gagnon MD [address] [place] [address] PCP - General General Internal Medicine 10/12/22 documented as of this encounter
--- OUTSIDE RECORDS SUMMARY | 2024-12-12 07:00 | XMS_ITS | Encounter Summary ---
Author Organization [employer] ([place], [place], [place], [place]) Address [address] [place] [address] Care Team Providers Care Senior Validation Engineer Name Role Phone Kel Gagnon MD Primary Care Provider [phone] Encounter Details Date Type Department Care Team (Late st Contact Info) Description 04/04/2018 Transcribed Document [facility] [place] [address] [place] [address] ProviderElizabeth MD [address] [place] [address] Social History Tobacco Use Types Packs/Day Years Used Date Smoking Tobacco: Never Assessed Sex and Gender Information Value Date Recorded Sex Assigned at Not on file Legal Sex Male 6:12 PM CDT Gender Identity Not on file Sexual Orientation Not on file documented as of this encounter Miscellaneous Notes * Cerner Conversion Note - Elizabeth ProviderMD - 04/04/2018 9:52 AM EXPERIENCE DESIGN DIRECTOR Procedural Documentation Entered On: 04/04/2018 9:44 EST Performed On: 04/04/2018 9:52 EST by HANG XIAO RN Procedure Documentation Procedure Performed : left radial arterial line placement using ultrasound Proper Use of Sterile Apparel per Policy : Yes HANG XIAO RN - 04/04/2018 9:47 EST Procedure to be Performed : arterial line Time Out Pause Time : 04/04/2018 9:33 EST All Activity Suspended : Yes Team Verbally Confirms Information : Correct patient identity, Correct side and site are marked, Consent form is present and accurate, Agreement on the procedure to be done, Correct patient position, Confirm the skin prep has dried, Performed in location of procedure after prepped/draped Procedure Case Attendee : ARIAN IGNACIO MD Procedure Case Attendee Role : Anesthesiologist Procedure Case Attendee Role 2 : knife machine operator Case Attendee 2 : Shannon Paul RN Procedure Case Attendee Role 3 : knife machine operator Case Attendee 3 : HANG XIAO RN MCGRANNAHAN, MARY, RN - 04/04/2018 9:43 EST Postprocedure Documentation Current Time : 9:47 EST HANG XIAO RN - 04/04/2018 9:47 EST Ras Level I Post Anesthesia Assessment Ras I Activity Status : Moves 4 extremities voluntarily or on command Ras l Respiratory Component : Able to deep breathe and cough freely Ras I Circulation Component : BP 20% of preanesthetic level Ras I Consciousness : Fully awake Ras l Oxygen Saturation : Needs oxygen to maintain > 92% Ras l Score : 9 HANG XIAO RN - 04/04/2018 9:47 EST Ras Level II Assessment Ras ll Dressing : Dry and clean Ras ll Pain : Pain free HANG XIAO RN - 04/04/2018 9:47 EST Vital Measurements Heart Rate, Apical : 51 bpm (LOW) Pulse Rhythm : Irregular Respiratory Rate : 18 Breaths/Min Systolic Blood Pressure : 155 mmHg (HI) Diastolic Blood Pressure : 74 mmHg HANG XIAO RN - 04/04/2018 9:47 EST Oxygen Therapy Oxygen Titrated : No Oxygen Therapy Mode : Nasal cannula Oxygen Flow Rate : 2 Liter/Min Pulse Oximeter Probe Site : Hand, right O2 Saturation Monitoring Frequency : Continuous Oxygen Saturation : 100 % HANG XIAO RN - 04/04/2018 9:47 EST Electronically signed by Katja [facility] Conversion Deputy County Attorney Cerner at 06/11/2022 12:11 PM CDT documented in this encounter Plan of Treatment Upcoming Encounters Date Type Department Care Team (Late st Contact Info) Description 01/29/2025 11:30 AM EST Office Visit [facility] Neurology - [place] [address] [place] [address] Kimberly Snell MD [address] [facility] [address] [place] [address] documented as of this encounter Visit Diagnoses Not on filedocumented in this encounter Care Teams Senior Validation Engineer Relationship Specialty Start Date End Date Kel Gagnon MD [address] [place] [address] PCP - General General Internal Medicine 10/12/22 documented as of this encounter
--- OUTSIDE RECORDS SUMMARY | 2024-12-12 07:00 | XMS_ITS | Encounter Summary ---
Author Organization [employer] ([place], [place], [place], [place]) Address [address] [place] [address] Care Team Providers Care Pressure Sealer And Tester Name Role Phone Kel Gagnon MD Primary Care Provider [phone] Encounter Details Date Type Department Care Team (Late st Contact Info) Description 04/04/2018 Transcribed Document [facility] [place] [address] [place] [address] ProviderElizabeth MD [address] [place] [address] Social History Tobacco Use Types Packs/Day Years Used Date Smoking Tobacco: Never Assessed Sex and Gender Information Value Date Recorded Sex Assigned at Not on file Legal Sex Male 6:12 PM CDT Gender Identity Not on file Sexual Orientation Not on file documented as of this encounter Miscellaneous Notes * Cerner Conversion Note - Historical ProviderMD - 04/04/2018 1:07 PM LOAN DOCUMENTS CLOSER Education-(VTE) / (DVT) Entered On: 04/04/2018 20:10 EST Performed On: 04/04/2018 13:07 EST by BLANCHE Farias, RN Teaching/Learning Assessment Barriers To Learning : None evident Individuals Taught : Patient Readiness to Learn : Cooperative Readiness to Learn : Explanation Learning Style Preferences Patient : Verbal explanation Learning Style Preferences Family : Verbal explanation BLANCHE Farias, RN - 04/04/2018 20:10 EST Electronically signed by Katja [facility] Conversion Content Coordinator Cerner at 06/11/2022 12:08 PM CDT documented in this encounter Plan of Treatment Upcoming Encounters Date Type Department Care Team (Late st Contact Info) Description 01/29/2025 11:30 AM EST Office Visit [facility] Neurology - Shan[place] [address] [place] [address] Kimberly Snell MD [address] [place] [address] documented as of this encounter Visit Diagnoses Not on filedocumented in this encounter Care Teams Pressure Sealer And Tester Relationship Specialty Start Date End Date Kel Gagnon MD [address] [place] [address] PCP - General General Internal Medicine 10/12/22 documented as of this encounter
--- OUTSIDE RECORDS SUMMARY | 2024-12-12 07:01 | XMS_ITS | Encounter Summary ---
Author Organization [employer] ([place], [place], [place], [place]) Address [address] [place] [address] Care Team Providers Care Precision Printing Worker Name Role Phone Kel Gagnon MD Primary Care Provider [phone] Encounter Details Date Type Department Care Team (Late st Contact Info) Description 04/04/2018 Transcribed Document [facility] Radiology [address] [place] [address] Joey Fry MD [address] [facility] [place] [address] Social History Tobacco Use Types Packs/Day Years Used Date Smoking Tobacco: Never Assessed Sex and Gender Information Value Date Recorded Sex Assigned at Not on file Legal Sex Male 6:12 PM CDT Gender Identity Not on file Sexual Orientation Not on file documented as of this encounter Miscellaneous Notes * Cerner Conversion Note - Joey Fry MD - 04/04/2018 10:37 AM EST Patient: GOMEZ BEAL Age: 63 years Sex: Male : 1955 Associated Diagnoses: None Author: JENNIFFERRLIVIA, TAVERN OPERATOR Chief Complaint AAA Review of Systems ROS reviewed as documented in chart no change since last seen by surgeon Health Status Allergies: Allergic Reactions (Selected) Severity Not Documented Penicillin- Rash., Allergies (1) Active Reaction penicillin rash Current medications: (Selected) Inpatient Medications Ordered Cleocin HCl: 900 mg, 50 mL, 100 mL/Hr, IV Piggyback, PREOP Lactated Ringers Injection intravenous solution 1,000 mL: 20 mL/Hr, IntraVENous Normal Saline Flush: 10 mL, IV Push, 1-Time lidocaine 1% preservative-free injectable solution: 0.5 mL, IntraDermal, 1-Time midazolam: 2 mg, IV Push, Q10Min, PRN: Anxiety Documented Medications Documented Co-Q10: 200 mg, Oral, Daily, 0 Refill(s) Lasix: 20 mg, Oral, Daily, PRN: Edema, 0 Refill(s) Melatonin: 5 mg, Oral, At Bedtime, 0 Refill(s) Xarelto: 20 mg, Oral, QPM, 0 Refill(s) bisoprolol: 2.5 mg, Oral, Daily, 0 Refill(s) lisinopril: 5 mg, Oral, At Bedtime, 1/2 tab, 0 Refill(s) rosuvastatin: 40 mg, Oral, At Bedtime, 0 Refill(s), Home Medications (7) Active bisoprolol 2.5 mg, Oral, Daily Co-Q10 200 mg, Oral, Daily Lasix 20 mg, PRN, Oral, Daily lisinopril 5 mg, Oral, At Bedtime Melatonin 5 mg, Oral, At Bedtime rosuvastatin 40 mg, Oral, At Bedtime Xarelto 20 mg, Oral, QPM , Medications (5) Active Scheduled: (3) #NaCl 0.9% *FLUSH* inj 10 mL 10 mL, IV Push, 1-Time clindamycin/D5w 900 mg 50 mL, IV Piggyback, PREOP lidocaine 1% *PF* inj 30 mL 0.5 mL, IntraDermal, 1-Time Continuous: (1) lactated ringers 1,000 mL 1,000 mL, IntraVENous, 20 mL/Hr PRN: (1) midazolam 1 mg/1 mL inj 2 mL 2 mg 2 mL, IV Push, Q10Min Problem list: All Problems Stented coronary artery / SNOMED CT 7607923350 / Confirmed Peripheral vascular disease / SNOMED CT 4453420927 / Confirmed Skin cancer / SNOMED CT 3874235280 / Confirmed Irritable bowel syndrome / SNOMED CT 33772631 / Confirmed Hyperlipidemia / SNOMED CT 35221766 / Confirmed High blood pressure / SNOMED CT 43337281 / Confirmed Heart failure / SNOMED CT 168742859 / Confirmed Coronary artery disease / SNOMED CT 8660018452 / Confirmed Cardiomyopathy / SNOMED CT 906936806 / Confirmed 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 Family History: No family history items have been selected or recorded. Procedure history: heart cath in the month of 07/2017 at 62 Years. colonoscopy. Physical Examination VS/Measurements No qualifying data available General: Alert and oriented, No acute distress, mild obese. Eye: Pupils are equal, round and reactive to light, Extraocular movements are intact, glasses. HENT: Normocephalic, Normal hearing. Neck: Supple, Non-tender. Respiratory: Lungs are clear to auscultation, Respirations are non-labored. Cardiovascular: Normal rate, Regular rhythm, No murmur, No gallop, No edema, oscar LE pedal pulses 2+ . Gastrointestinal: Soft, Non-tender. Genitourinary: No costovertebral angle tenderness. Lymphatics: No lymphadenopathy neck, axilla, groin. Musculoskeletal: Normal range of motion, Normal strength. Integumentary: Warm, Dry, Pray. Neurologic: Alert, Oriented. Psychiatric: Cooperative, Appropriate mood & affect. Review / Management Results review: Labs (Last four charted values) WBC 7.5 (APR 01) HB 14.5 (APR 01) HCT 46.4 (APR 01) Plt 233 (APR 01) Na 139 (APR 01) K 4.0 (APR 01) Cl 106 (APR 01) CO2 26 (APR 01) BUN 21 (APR 01) Cr 1.30 (APR 01) Glu R 86 (APR 01) Ca 8.7 (APR 01) . Impression and Plan Condition: Stable. documented in this encounter Plan of Treatment Upcoming Encounters Date Type Department Care Team (Late st Contact Info) Description 01/29/2025 11:30 AM EST Office Visit [facility] Neurology - [place] [address] [place] [address] Kimberly Snell MD [address] [facility] [address] [place] [address] documented as of this encounter Visit Diagnoses Not on filedocumented in this encounter Care Teams Precision Printing Worker Relationship Specialty Start Date End Date Kel Gagnon MD [address] [place] [address] PCP - General General Internal Medicine 10/12/22 documented as of this encounter
--- OUTSIDE RECORDS SUMMARY | 2024-12-12 07:01 | XMS_ITS | Encounter Summary ---
Author Organization [employer] ([place], [place], [place], [place]) Address [address] [place] [address] Care Team Providers Care Tilt Wall Supervisor Name Role Phone Kel Gagnon MD Primary Care Provider [phone] Encounter Details Date Type Department Care Team (Late st Contact Info) Description 04/05/2018 Transcribed Document [facility] [place] [facility] [place] [address] ProviderElizabeth MD [address] [place] [address] Social History Tobacco Use Types Packs/Day Years Used Date Smoking Tobacco: Never Assessed Sex and Gender Information Value Date Recorded Sex Assigned at Not on file Legal Sex Male 6:12 PM CDT Gender Identity Not on file Sexual Orientation Not on file documented as of this encounter Miscellaneous Notes * [employer]ner Conversion Note - Historical ProviderMD - 04/05/2018 2:00 AM IT SERVICE DELIVERY MANAGER Collar Stay Fuser Tender Details Entered On: 04/05/2018 2:10 EST Performed On: 04/05/2018 2:00 EST by TEJA POWERS RN Order Details Transport Mode Order Detail : Portable Isolation Precautions Order Detail : Standard Precautions Order Detail : N/A IV Order Detail : 1 Oxygen Order Detail : 0 Nurse Collect Order Detail : 1 Lift/Transfer : Minimal Central Line Order Detail : No Room Service : Appropriate Arterial Line : Yes TEJA POWERS, RN - 04/05/2018 2:09 EST documented in this encounter Plan of Treatment Upcoming Encounters Date Type Department Care Team (Late st Contact Info) Description 01/29/2025 11:30 AM EST Office Visit [facility] Neurology - [place] [address] [place] [address] Kimberly Snell MD [address] [place] [address] documented as of this encounter Visit Diagnoses Not on filedocumented in this encounter Care Teams Tilt Wall Supervisor Relationship Specialty Start Date End Date Kel Gagnon MD [address] [place] [address] PCP - General General Internal Medicine 10/12/22 documented as of this encounter
--- OUTSIDE RECORDS SUMMARY | 2024-12-12 07:01 | XMS_ITS | Encounter Summary ---
Author Organization [employer] ([place], [place], [place], [place]) Address [address] [place] [address] Care Team Providers Care Teacher Advisor Name Role Phone Kel Gagnon MD Primary Care Provider [phone] Encounter Details Date Type Department Care Team (Late st Contact Info) Description 04/04/2018 Transcribed Document [facility] [place] [facility] [place] [address] ProviderElizabeth MD [address] [place] [address] Social History Tobacco Use Types Packs/Day Years Used Date Smoking Tobacco: Never Assessed Sex and Gender Information Value Date Recorded Sex Assigned at Not on file Legal Sex Male 6:12 PM CDT Gender Identity Not on file Sexual Orientation Not on file documented as of this encounter Miscellaneous Notes * Cerner Conversion Note - Historical ProviderMD - 04/04/2018 5:00 PM FIBER HEEL PIECE SHAPER Chart Check - Review Order Profile Entered On: 04/04/2018 20:11 EST Performed On: 04/04/2018 17:00 EST by BLANCHE Farias RN Chart Check Chart Reviewed Date and Time : 04/04/2018 20:11 EST BLANCHE Farias RN - 04/04/2018 20:11 EST documented in this encounter Plan of Treatment Upcoming Encounters Date Type Department Care Team (Late st Contact Info) Description 01/29/2025 11:30 AM EST Office Visit [facility] Neurology - [address] [place] [id number] Kimberly Snell MD [address] [facility] [address] [place] [address] documented as of this encounter Visit Diagnoses Not on filedocumented in this encounter Care Teams Teacher Advisor Relationship Specialty Start Date End Date Kel Gagnon MD [address] [place] [address] PCP - General General Internal Medicine 10/12/22 documented as of this encounter
--- OUTSIDE RECORDS SUMMARY | 2024-12-12 07:01 | XMS_ITS | Encounter Summary ---
Author Organization [employer] ([place], [place], [place], [place]) Address [address] [place] [address] Care Team Providers Care Solution Design Engineer Name Role Phone Kel Gagnon MD Primary Care Provider [phone] Encounter Details Date Type Department Care Team (Late st Contact Info) Description 04/04/2018 Transcribed Document [facility] [place] [address] ProviderElizabeth MD [address] [place] [address] Social History Tobacco Use Types Packs/Day Years Used Date Smoking Tobacco: Never Assessed Sex and Gender Information Value Date Recorded Sex Assigned at Not on file Legal Sex Male 6:12 PM CDT Gender Identity Not on file Sexual Orientation Not on file documented as of this encounter Miscellaneous Notes * Cerner Conversion Note - Historical ProviderMD - 04/04/2018 1:07 PM FABRIC FINISHER Evaluation, Physical Therapy Entered On: 04/05/2018 12:30 EST Performed On: 04/05/2018 12:20 EST by ANANTH MEDEL, CASS General Information, PT Visit Type, PT : Initial evaluation Patient Orders : Order Date Order Ordering 04/04/2018 13:07 PT Evaluation and Treatment Ordered By: DARIO JEAN MD-JOSE G Active Diagnoses : 04/04/2018 00:00 Abdominal aortic aneurysm, without rupture Therapy Diagnosis, PT : PT consulted for mobility eval, but upon evaluation patient was found to be independent. Onset of Problem, PT : 04/04/2018 EST Admission Date : 04/04/2018 13:07 Co-treated by, PT : Occupational Therapist Personal Devices : Personal Devices No Devices Recorded Assistive Devices : Assistive Devices No Devices Recorded General Information Comment, PT : Dx: AAA without rupture Sx: 04/04: endovascular repair of abdominal aneurysm non-ruptured. ANANTH MEDEL, PT - 04/05/2018 12:20 EST General Status Patient Received Status : Up in chair Treatment Start Time : 04/05/2018 10:40 EST Patient Left Status : Up in chair, Communication board completed, All needs met and within reach Treatment End Time : 04/05/2018 10:52 EST Treatment Time : 12 Minute(s) ANANTH MEDEL, PT - 04/05/2018 12:20 EST History and Environment Living Situation, Therapy : Home Patient Lives With : Spouse Persons Assisting Patient at Home : Spouse Persons Providing Information : Patient Home Equipment Therapy, PT : None Home Setup : One story Stairs : Yes Stair Location(s) : Outside Outside Stairs, Number of Steps : 3 ANANTH MEDEL, PT - 04/05/2018 12:20 EST Prior Level of Function PT GRID Prior LOF Ambulation, Household : Independent Prior LOF Ambulation, Community : Independent Prior LOF Bed Mobility : Independent Prior LOF Toileting : Independent Prior LOF Transfer : Independent ANANTH MEDEL PT - 04/05/2018 12:20 EST Intervention Summary Heart Rate/Pulse Pre-intervention : 61 bpm BP Systolic Pre-intervention : 99 mmHg BP Diastolic Pre-intervention : 58 mmHg O2 Pre-Intervention : on room air SpO2 Pre-Intervention : 97 % Heart Rate/Pulse Post-intervention : 59 bpm O2 Post-Intervention : on room air SpO2 Post-Intervention : 99 % ANANTH MEDEL, PT - 04/05/2018 12:20 EST Upper Extremity Right UE Active ROM : WFL Left UE Active ROM : WFL ANANTH MEDEL, PT - 04/05/2018 12:20 EST Lower Extremity RLE Active ROM : [facility] LLE Active ROM : [facility] ANANTH MEDEL, PT - 04/05/2018 12:20 EST Right Lower Extremity MMT Knee Flexion (0-140) : 5/normal Knee Extension (0-0) : 5/normal Ankle Dorsiflexion (0-20) : 5/normal Ankle Plantarflexion (0-45) : 5/normal ANANTH MEDEL, PT - 04/05/2018 12:20 EST Left Lower Extremity MMT Knee Flexion (0-140) : 5/normal Knee Extension (0-0) : 5/normal Ankle Dorsiflexion (0-20) : 5/normal Ankle Plantarflexion (0-45) : 5/normal ANANTH MEDEL, PT - 04/05/2018 12:20 EST Functional Mobility Mobility Grid Sit to Stand : Rehab Complete independence Stand to Sit : Rehab Complete independence ANANTH MEDEL, PT - 04/05/2018 12:20 EST AM [facility] Basic Mobility Turning Over in Bed : None Sit Down On/Stand Up From Chair w/ Arms : None Move Back Lying to Sitting Side of Bed : None Moving To/From a Bed to Chair : None Need to Walk in Hospital Room : None Climbing 3-5 Steps with a Railing : None AM-[facility] Basic Mobility Raw Score : 24 AM-[facility] Basic Mobility Standardized Score : 61.14 AM-[facility] Basic Mobility CMS 0-100% Score : 0.00 % ANANTH MEDEL, PT - 04/05/2018 12:20 EST Image 1 - Images currently included in the form version of this document have not been included in the text rendition version of the form. Functional Limitation Reporting, PT Functional Limitation Visit Type, PT : Initial evaluation Severity Determination Method, PT : Clinical Judgment, AM [facility] Basic Mobility Mobility G8978 - Current Mod, PT : 0 percent impaired, limited or restricted (CH) Mobility G8979 - Proj Goal Mod, PT : 0 percent impaired, limited or restricted (CH) Mobility G8980 - Discharge Mod, PT : 0 percent impaired, limited or restricted (CH) ANANTH MEDEL, PT - 04/05/2018 12:20 EST Gait Training/Assessment, PT Weight Bearing Status : Full Gait Assistance Level : Independent, complete Walking Distance : 320' Ambulatory Devices : None, Gait belt Gait Deviations : No NAANTH MEDEL, PT - 04/05/2018 12:20 EST Cognition Assessment, PT Orientation : Oriented x 4 Attention Assessment : Present ANANTH MEDEL PT - 04/05/2018 12:20 EST Edu Topics Physical Therapy Education Grid Gait Training : Returns demonstration Role of Physical Therapy : Verbalizes understanding Transfer Training : Returns demonstration ANANTH MEDEL, PT - 04/05/2018 12:20 EST Indication Assesessment, PT Physical Therapy Indicated : No Physical Therapy Not Indicated : Independent, complete, No skilled services ind. Potential Barriers To Therapy : None evident Rehabilitation Potential : At prior level of function ANANTH MEDEL, PT - 04/05/2018 12:20 EST Plan of Care, PT PT Tx Plan/Goals Established w Patient : No PT Frequency Rehab : Discontinue ANANTH MEDEL, PT - 04/05/2018 12:20 EST Treatment Note Subjective Comment : Patient agrees to PTx. Nsg. Ok'd PTx. Assessment : patient is independent with all mobility and is safe for discharge home by PT standpoint. Plan for Treatment : d/C PTx. ANANTH MEDEL, PT - 04/05/2018 12:20 EST Pain Assessment Pain Scaled Used : 0-10 Pain scale Pain Score Pre-Intervention : 0 ANANTH MEDEL PT - 04/05/2018 12:20 EST Image 1 - Images currently included in the form version of this document have not been included in the text rendition version of the form. Anticipated Discharge Needs, OT/PT Anticipated Discharge to : Home, with family care Recommend Continued Therapy at Discharge : No ANANTH MEDEL, PT - 04/05/2018 12:[address] [facility] PT Eval Low Complexity : 1 ANANTH MEDEL, PT - 04/05/2018 12:20 EST Electronically signed by Katja [facility] Conversion [place] Rafting Guide Cerner at 06/11/2022 12:34 PM CDT documented in this encounter Plan of Treatment Upcoming Encounters Date Type Department Care Team (Late st Contact Info) Description 01/29/2025 11:30 AM EST Office Visit [facility] Neurology - [address] [place] [address] Kimberly Snell MD [address] [facility] [address] [place] [address] documented as of this encounter Visit Diagnoses Not on filedocumented in this encounter Care Teams Solution Design Engineer Relationship Specialty Start Date End Date Kel Gagnon MD [address] [place] [address] PCP - General General Internal Medicine 10/12/22 documented as of this encounter
--- OUTSIDE RECORDS SUMMARY | 2024-12-12 07:01 | XMS_ITS | Encounter Summary ---
Author Organization [employer] ([place], [place], [place], [place]) Address [address] [place] [address] Care Team Providers Care Equal Opportunity Counselor Name Role Phone Kel Gagnon MD Primary Care Provider [phone] Encounter Details Date Type Department Care Team (Late st Contact Info) Description 04/04/2018 Transcribed Document [facility] [place] [facility] [address] ProviderElizabeth MD [address] [place] [address] Social History Tobacco Use Types Packs/Day Years Used Date Smoking Tobacco: Never Assessed Sex and Gender Information Value Date Recorded Sex Assigned at Not on file Legal Sex Male 6:12 PM CDT Gender Identity Not on file Sexual Orientation Not on file documented as of this encounter Miscellaneous Notes * Cerner Conversion Note - Historical ProviderMD - 04/04/2018 6:17 AM DIGITAL CONTROLS TECHNICAL OFFICER Admission History, Adult Entered On: 04/04/2018 17:51 EST Performed On: 04/04/2018 6:17 EST by BLANCHE Farias RN Advance Directive Patient has Advance Directive *Q : No, patient refuses Advance Directive information BLANCHE Farias RN - 04/04/2018 17:49 EST Anesthesia/Transfusion History Family History of Anesthesia Reaction : No prior transfusion(s) Blood Transfusion Acceptable to Patient : Yes Transfusion History : Prior anesthesia without reaction Family History of Anesthesia Reaction : None BLANCHE Farias RN - 04/04/2018 17:49 EST Anticipated Discharge Needs Discharge To, Anticipated : Home Anticipated Discharge Needs at This Time : None BLANCHE Farias RN - 04/04/2018 17:49 EST Education Topics, Admission Orientation DCP GENERIC CODE Advance Directives : Verbalizes understanding Bed Control : Verbalizes understanding Call Light : Verbalizes understanding Fall Prevention : Verbalizes understanding Hand Hygiene : Verbalizes understanding Patient Safety : Verbalizes understanding Television/Phone : Verbalizes understanding Visiting Policy : Verbalizes understanding BLANCHE Farias RN - 04/04/2018 17:49 EST Functional Assessment Living Situation : Home Patient Lives With : Spouse Persons Assisting Patient at Home : Spouse Current Daily Living Assistance : None Sensory Deficits : None Current Home Treatments : None BLANCHE Farias RN - 04/04/2018 17:49 EST General Info Contact Password : TEJA Cowan RN - 04/04/2018 20:52 EST Preferred Name : Gomez Arrived From : Home Mode of Arrival on Unit : Ambulatory Legal Guardian : Spouse Support Person/Pt Rep Name : Karena Beal Support Person/Pt Rep Contact Information : [phone] Want Family/Rep/Phys Notified of Admit : No Emergency Contact #1 : Karena Beal Emergency Contact #1 Emergency Contact #1 Relationship : Emergency Contact #2 : Autumn Dia Emergency Contact #2 Emergency Contact #2 Relationship : daughter Information Obtained From : Patient Primary Language : Tongan Communication Barrier : None BLANCHE Farias RN - 04/04/2018 17:49 EST Fall Risk Scales ABCs Fall Injury Risk Identification : Surgery ABC Fall Injury Risk : Moderate to high injury risk Injury Moderate to High Risk Interventions : Patient room close to nurses station LEON Hx Falls Immediate/Within 3 Months : No Leon Secondary Diagnosis : Yes LEON Use of Ambulatory Aid : Bed rest/Nurse assist LEON IV Therapy or IV Access : Yes Jose Gait/Transferring : Normal, bedrest, immobile Leon Mental Status : Oriented to own ability Leon Fall Risk Score : 35 LEON Fall Scale Risk Level : 25-45 Medium Risk Vanderbilt Fall Interventions : Adequate lighting, Call device within reach, Frequent orientation to call device, Frequent orientation to surroundings, Hourly comfort/safety rounds, Non-slip footwear, Personal items within reach, Reinforced to call for assistance before getting out of bed, Room free of clutter/spills, Upper side-rails up, Wheels locked, Wires/Cords secured Barriers to Learning : None evident Fall Risk Scale Calc Temp : 0 BLANCHE Farias RN - 04/04/2018 17:49 EST Health Histories Smoking Status : Former smoker, quit more than 30 days ago Smokeless Tobacco Status : Never BLANCHE Farias RN - 04/04/2018 17:49 EST Social History (As Of: 04/04/2018 17:51:28 EST) Tobacco: Former smoker, quit more than 30 days ago Smoking Status. Never Smokeless Tobacco Status. Years of Use: 47. (Last Updated: 04/01/2018 10:36:52 EST by Rhonda Quigley RN) Alcohol: Alcohol Use History No. (Last Updated: 04/01/2018 10:37:12 EST by Rhonda Quigley RN) Substance Abuse: Drug Use Hx: No. Use in Last 12 Months: No. (Last Updated: 04/01/2018 10:37:17 EST by Rhonda Quigley RN) Height and Weight, Clinical Dosing Height Source : Measured Height Entry Format : [place] Height, Feet : 0 ft(Converted to: 0 cm, 0 Inch) Height, Inches : 75 Inch(Converted to: 6 ft 3 Inch, 190.50 cm) Clinical Height : 190.5 cm Weight Source : Standing scale Weight Entry Format : [place] Clinical Dosing Weight : 106.14 kg Weight, Pounds : 233.5 lb Body Surface Area (BSA) : 2.35 m2 Body Mass Index : 29.2 kg/m2 (HI) [place] Body Weight : 83 kg BLANCHE Farias RN - 04/04/2018 17:49 EST Infectious Disease History Infectious Disease History : None, Chicken pox/Shingles, Measles Fever/Chills Last 48 Hours : No Travel To Regions with Travel Advisories : No Travel Outside [place] Within Last 30 Days : No Contact With Traveler to Advisory Region : No Tuberculosis Symptoms : None BLANCHE Farias RN - 04/04/2018 17:49 EST Tetanus Immunization Status Previous Tetanus Immunizations : No qualifying data available. Tetanus Immunization : Unknown BLANCHE Farias RN - 04/04/2018 17:49 EST Influenza Vaccine Asmt, Adult Previous Vaccines from Immunization Schedule : No qualifying data available. Influenza Immunization, Current Season : Yes Influenza Immunization Date : 11/22/2017 EDT BLANCHE Farias RN - 04/04/2018 17:49 EST Pneumococcal Vaccine Previous Vaccines from Immunization Schedule : No qualifying data available. Pneumonia Immunization Received : Yes Pneumonia Immunization Date : 02/22/2014 EST BLANCHE Farias RN - 04/04/2018 17:49 EST Order Details Order Detail : N/A BLANCHE Farias RN - 04/04/2018 17:49 EST Nutrition History Eating Poorly Due to Decreased Appetite : No Unplanned Weight Loss in Past 3-6 Months : No Malnutrition Screening Tool Total(mal) : 0 Malnutrition Screening Tool Risk Level : Patient not at risk BLANCHE Farias RN - 04/04/2018 17:49 EST Psychosocial History Do You Have a History of the Following? : Patient denies history Currently in Unsafe Situation : No Do You Have a Support System? : Yes Tried to Harm Yourself in the Past? : No Thoughts of Harming/Killing Yourself : No BLANCHE Farias RN - 04/04/2018 17:49 EST Sleep Apnea Risk Assmt Hx of Obstructive Sleep Apnea Diagnosis : No Snore Loudly : No Tired, Fatigued, or Sleepy During Day : No Observed Stopping Breathing During Sleep : No Have/Are Being Treated for Hypertension : Yes STOP Sleep Apnea Risk Level Score : 1 STOP Sleep Apnea Risk Level : Low BMI Greater Than 35 kg/m2 : No Age over 50 Years Old : Yes Gender Male : Yes Neck Circumference Measured (cms) : 42 cm STOP-BANG Sleep Apnea Risk Level Score : 3 Neck Circumference Greater Than 40 cm : Yes BLANCHE Farias RN - 04/04/2018 17:49 EST Spiritual/Cultural Needs Any Spiritual/Cultural Needs or Requests : No BLANCHE Farias RN - 04/04/2018 17:49 EST Valuables and Belongings Valuables and Belongings : No personal items BLANCHE Farias RN - 04/04/2018 17:49 EST documented in this encounter Plan of Treatment Upcoming Encounters Date Type Department Care Team (Late st Contact Info) Description 01/29/2025 11:30 AM EST Office Visit [facility] Neurology - [address] [address] Kimberly Snell MD [address] [facility] [address] [place], [place] [id number] documented as of this encounter Visit Diagnoses Not on filedocumented in this encounter Care Teams Equal Opportunity Counselor Relationship Specialty Start Date End Date Kel Gagnon MD [address] [place] [address] PCP - General General Internal Medicine 10/12/22 documented as of this encounter
--- OUTSIDE RECORDS SUMMARY | 2024-12-12 07:01 | XMS_ITS | Encounter Summary ---
Author Organization [employer] ([place], [place], [place], [place]) Address [address] [place] [address] Care Team Providers Care Logging Shovel Operator Name Role Phone Kel Gagnon MD Primary Care Provider [phone] Encounter Details Date Type Department Care Team (Late st Contact Info) Description 04/04/2018 Transcribed Document [facility] Radiology [address] [place] [address] Joey Fry MD [address] [facility] [address] Social History Tobacco Use Types Packs/Day Years Used Date Smoking Tobacco: Never Assessed Sex and Gender Information Value Date Recorded Sex Assigned at Not on file Legal Sex Male 6:12 PM CDT Gender Identity Not on file Sexual Orientation Not on file documented as of this encounter Miscellaneous Notes * Cerner Conversion Note - Joey Fry MD - 04/04/2018 2:30 PM EST DATE OF PROCEDURE:04/04/2018 PREOPERATIVE DIAGNOSIS(ES): Greater than 5 cm infrarenal abdominal aortic aneurysm. POSTOPERATIVE DIAGNOSIS(ES): Greater than 5 cm infrarenal abdominal aortic aneurysm. PROCEDURE: 1. An endovascular repair of a nonruptured abdominal aortic aneurysm from infrarenal aorta to iliac bifurcation. 2. Ultrasound-guided bilateral femoral arterial access. 3. Abdominal aortogram. 4. Percutaneous access, right femoral with 18-Ghanaian, left femoral with 12-Ghanaian. SURGEON: Joey Fry MD ANESTHESIA: LMAC. INDICATION: Patient is a 63-year-old male with findings of a 5.4 cm infrarenal abdominal aortic aneurysm. He has been offered endovascular repair. Risks and benefits explained and understood by the patient and agreed to proceed. 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 He understands operative risks and benefits and agrees to proceed. OPERATIVE FINDINGS: 1. Agate Excluder 31 x 14 x 17 placed in an infrarenal portion below the left accessary renal. Contralateral gate measuring 12 x 12 limb. 2. Completion aortography demonstrating no evidence of an endoleak. Bilateral internal iliacs were patent as was bilateral renal arteries. OPERATIVE DESCRIPTION: Patient was taken back to the operating room and placed in supine position on operating table. Following IV sedation, bilateral groins were widely prepped and draped in a standard sterile fashion as was the abdomen. Time-out was taken. Antibiotics were administered. Under ultrasound guidance, bilateral common femoral arteries were accessed within the anterior portion which was free of plaque. Systemic heparinization was performed. A 6-Ghanaian sheath was placed over wire. Two Perclose devices were used within the right and a single within the left. A total of six Percloses were used, however only three were done successfully. A 18-Ghanaian sheath was placed within the right and a 12-Ghanaian within the left femoral artery. A pigtail was advanced and an aortography was performed demonstrating a long fusiform aneurysm. The patient had only accessory left renal and the main renal in the left was occluded. A graft was deployed below the left renal accessory artery. The contralateral gate was next cannulated. The ipsilateral side was measured out following identification of the location of the left internal iliac artery. 12 x 12 limb was deployed. Ipsilateral limb was also deployed above the right internal iliac artery. A Agate aortic molding balloon was used to angioplasty proximal and distal fixation points as well as the junction between the contralateral gate. Completion aortography demonstrated excellent results with no evidence of an endoleak. Bilateral renal and internal iliac arteries were patent. Sheaths were removed. Perclose devices were used to achieve hemostasis. Patient had closure of both femoral incisions with 3-0 Vicryl and 4-0 Monocryl. He was taken back to Recovery in stable condition. No complications. Joey Fry M.D. Dict: 04/04/2018 13:30:06 Trans: 04/04/2018 14:23:51 CC1: Joey Fry M.D. documented in this encounter Plan of Treatment Upcoming Encounters Date Type Department Care Team (Late st Contact Info) Description 01/29/2025 11:30 AM EST Office Visit [facility] [address] [place] [address] Kimberly Snell MD [address] [place] [address] documented as of this encounter Visit Diagnoses Not on filedocumented in this encounter Care Teams Logging Shovel Operator Relationship Specialty Start Date End Date Kel Gagnon MD [address] [place] [address] PCP - General General Internal Medicine 10/12/22 documented as of this encounter
--- OUTSIDE RECORDS SUMMARY | 2024-12-12 07:01 | XMS_ITS | Referral Summary ---
Author Organization [employer] ([place], [place], [place], [place]) Address [address] [place] [address] Care Team Providers Care Deskidding Machine Operator Name Role Phone Kel Gagnon MD Primary Care Provider [phone] Encounters * This document contains information received from the source organization and may not represent a complete record from that organization. Date Type Department Care Team Description 12/01/2024 Orders Only [facility] Neurology - [facility] [address] [place] [address] ProviderElizabeth MD 11/29/2024 Travel 11/29/2024 3:15 PM EDT Office Visit [facility] [address] [place] [address] Kel Gagnon MD Everman, Nicole A, MD Moderate late onset Alzheimer's dementia, unspecified whether behavioral, psychotic, or mood disturbance or anxiety (HCC) (Primary Dx); Other fatigue; Avitaminosis D; Idiopathic polyneuropathy 09/22/[address] [facility] [address] [place] [address] Kimberly Snell MD Appointment (Referral for Neurology New Patient Appointment) from Last 3 Months Allergies Active Allergy Reactions Criticality Noted Date Comments Penicillins 10/07/2022 Medications * This document contains information received from the source organization and may not represent a complete record from that organization. bisoprolol (ZEBETA) 5 MG tablet Take 0.5 tablets (2.5 mg total) by mouth daily. Active coenzyme Q10 200 mg capsule Take 1 capsule (200 mg total) by mouth daily. Active lisinopriL (PRINIVIL,ZESTRIL) 2.5 MG tablet Take 1 tablet (2.5 mg total) by mouth daily. Active rosuvastatin (CRESTOR) 40 MG tablet Take 1 tablet (40 mg total) by mouth daily. Active rivaroxaban (XARELTO) 20 mg tablet Take by mouth daily with dinner. Active magnesium gluconate (MAGONATE) 27.5 mg magne- sium (500 mg) tablet Take 1 tablet (500 mg total) by mouth 2 (two) times daily. Active TURMERIC ORAL Take by mouth. Active melatonin 10 mg Cap Take by mouth. Active cyanocobalamin 1,000 mcg/mL injection Inject 1 mL (1,000 mcg total) into the shoulder, thigh, or buttocks every 30 (thirty) days. Active memantine (NAMENDA) 10 MG tabletIndications:M oderate late onset Alzheimer's dementia, unspecified whether behavioral, psychotic, or mood disturbance or anxiety (HCC),Other fatigue,Avitaminosi s D,Idiopathic polyneuropathy 1/2 tab po BID x 1 week then 1 tab po BID. 60 tablet 5 Active Active Problems Problem Noted Date Diagnosed Date CAD (coronary artery disease) 10/07/2022 HTN (hypertension) 10/07/2022 HLD (hyperlipidemia) 10/07/2022 Paroxysmal A-fib 10/07/2022 Social History Tobacco Use Types Packs/Day Years [...] Date Marty rded Speak language other than Samoan at home Not on file 03/12/2023 Want [...] on file Sexual Orientation Not on file Last Filed Vital Signs Vital Sign Reading Time Taken Comments Blood Pressure 106/61 11/29/2024 3:05 PM EDT Pulse 55 11/29/2024 3:05 PM EDT Temperature - - Respiratory Rate - - Oxygen Saturation 99% 08/24/2024 12:41 PM EDT Inhaled Oxygen Concentration - - Weight 103.4 kg (228 lb) 11/29/2024 3:05 PM EDT Height 190.5 cm (6' 3 ) 11/29/2024 3:05 PM EDT Body Mass Index 28.5 11/29/2024 3:05 PM EDT Plan of Treatment Upcoming Encounters Date Type Department Care Team (Late st Contact Info) Description 01/29/2025 11:30 AM EST Office Visit [facility] Neurology - Shanita Milfay [address] [place] [id number] Kimberly Snell MD [address] [place] [address] Insurance [employer] MEDICARE PPO AETNA [facility] AD[facility] Care Teams Deskidding Machine Operator Relationship Specialty Start Date End Date Kel Gagnon MD [address] [place] [address] [place] [address] PCP - General General Internal Medicine 10/12/22
--- OUTSIDE RECORDS SUMMARY | 2024-12-12 07:01 | XMS_ITS | Encounter Summary ---
Author Organization [employer] ([place], [place], [place], [place]) Address [address] [place] [address] Care Team Providers Care Compounding And Finishing Supervisor Name Role Phone Kel Gagnon MD Primary Care Provider [phone] Encounter Details Date Type Department Care Team (Late st Contact Info) Description 04/05/[address] [facility] [place] [address] ProviderElizabeth MD [address] [place] [address] Social History Tobacco Use Types Packs/Day Years Used Date Smoking Tobacco: Never Assessed Sex and Gender Information Value Date Recorded Sex Assigned at Not on file Legal Sex Male 6:12 PM CDT Gender Identity Not on file Sexual Orientation Not on file documented as of this encounter Miscellaneous Notes * Cerner Conversion Note - Elizabeth Snyder MD - 04/05/2018 12:04 PM WELLNESS PROGRAM ADMINISTRATOR [address] [place] [address] Patient Copy Patient Information: Name: GOMEZ BEAL Current Date: 04/05/2018 12:04:36 : 1955 Patient Address: [address] [address] Patient Attending Physician: DARIO JEAN MD-JOSE G Primary Care Provider: KEL GAGNON MD Primary Care Provider Discharge Diagnosis: AAA (abdominal aortic aneurysm) without rupture Weight on Admission: 233 lb, 8 oz Comment: Follow-up Instructions: With: Address: When: DARIO JEAN [address] [place] [address], [address] [place] [phone] Business (1) 1:00 PM Comments: Appt. has been made with Dr. Jean at 1:00 pm on 04/19/18. Discharge Instructions: Diet after Discharge: Heart healthy diet Activity after Discharge: No heavy lifting over 10 pounds Driving after Discharge: Do not drive May Return to Work/School: may return to work when cleared by Dr. Jean Showering/Bathing:No tub bathing, soaking, or swimming, Other: may shower tomorrow Wound/Incision Care after Discharge: Keep operative site/wound site clean and dry Immunizations Documented During Stay: No Immunizations Found Pain Management: take Ashland as prescribed Special Instructions: call with fever greater than 101 F, increased pain not relieved with pain medication prescription, bleeding or drainage from incsions, or calll with any other concerns that you may have Heart Failure Discharge Instructions (if any): Stroke Related Discharge Instructions (if any): Warfarin Related Discharge Instructions (if any): Final Medication List: Other Medications acetaminophen-hydrocodone (Ashland 7.5 mg-325 mg oral tablet) take one or two tabs by mouth every 8 hours as need for surgical pain; as needed Pain (Severe 7-10). Refills: 0. bisoprolol (bisoprolol 5 mg oral tablet) 0.5 Tablet(s) Oral Every Day. furosemide (Lasix 20 mg oral tablet) 1 Tablet(s) Oral Every Day as needed Edema/weight gain. lisinopril (lisinopril 5 mg oral tablet) 0.5 Tablet(s) Oral At Bedtime. melatonin (melatonin 5 mg sublingual tablet) 1 Tablet(s) Oral At Bedtime. rivaroxaban (Xarelto) 20 Milligram(s) Oral Every Evening. rosuvastatin (Crestor 40 mg oral tablet) 1 Tablet(s) Oral At Bedtime. ubiquinone (Coenzyme Q10 100 mg oral capsule) 1 Capsule(s) Oral Every Day. Patient Allergies: penicillin Medication Instructions: Take your medications faithfully. Do NOT skip medication. Do NOT stop taking medications without the direction of a physician. Carry a list of your medications with you at all times, and take this medication list with you to your first follow up visit. Report any side effects. Avoid herbal remedies unless discussed with your physician. As part of your treatment plan, your physician may have prescribed a limited course of a controlled substance. This medication may be given to help people with moderate or severe pain or for other medical conditions, but there are risks involved with treatment. Common side effects may include nausea, constipation, drowsiness, sweating, itching, dry mouth, and rash. More serious side effects may include cognitive and motor impairment, like problems with thinking, concentrating, alertness, and movement (e.g. slowed reflexes), and driving and operating heavy machinery can be dangerous. It is important for you to talk to your physician if you have these side effects or questions. These controlled substances can produce physical dependence and be habit-forming if taken for an extended period of time, which means that the body has gotten used to them and may experience withdrawal symptoms if they are abruptly stopped. Withdrawal symptoms can include runny nose, sweating, goose bumps, diarrhea, abdominal cramping, rapid heartbeat, difficulty sleeping, and nervousness. Medication Leaflets: acetaminophen and hydrocodone (a SEET a MIN oh fen and gino alexandrea KOE done) Hycet, Lorcet, Ashland, Verdrocet, Vicodin, Xodol, Zamicet What is the most important information I should know about acetaminophen and hydrocodone? MISUSE OF OPIOID MEDICINE CAN CAUSE ADDICTION, OVERDOSE, OR . Keep the medication in a place where others cannot get to it. An overdose of acetaminophen can damage your liver or cause . Call your doctor at once if you have pain in your upper stomach, loss of appetite, dark urine, or jaundice (yellowing of your skin or eyes). Taking opioid medicine during may cause life-threatening withdrawal symptoms in the . Fatal side effects can occur if you use opioid medicine with alcohol, or with other drugs that cause drowsiness or slow your breathing. Stop taking this medicine and call your doctor right away if you have skin redness or a rash that spreads and causes blistering and peeling. What is acetaminophen and hydrocodone? Hydrocodone is an opioid pain medication, sometimes called a narcotic. Acetaminophen is a less potent pain reliever that increases the effects of hydrocodone. Acetaminophen and hydrocodone is a combination medicine used to relieve moderate to severe pain. Acetaminophen and hydrocodone may also be used for purposes not listed in this medication guide. What should I discuss with my healthcare provider before taking acetaminophen and hydrocodone? You should not use this medicine if you are allergic to acetaminophen or hydrocodone, or if you have: ? severe asthma or breathing problems; or ?? a blockage in your stomach or intestines. Tell your doctor if you have ever had: ? liver disease; ?? a drug or alcohol addiction; ?? kidney disease; ?? a head injury or seizures; ?? urination problems; or ?? problems with your thyroid, pancreas, or gallbladder. If you use opioid medicine while you are , your baby could become dependent on the drug. This can cause life-threatening withdrawal symptoms in the baby after it is born. Babies born dependent on opioids may need medical treatment for several weeks. Do not breast-feed. This medicine can pass into breast milk and cause drowsiness, breathing problems, or in a nursing baby. How should I take acetaminophen and hydrocodone? Follow all directions on your prescription label. Never take this medicine in larger amounts, or for longer than prescribed. An overdose can damage your liver or cause . Tell your doctor if the medicine seems to stop working as well in relieving your pain. Always check your bottle to make sure you have received the correct pills (same brand and type) of medicine prescribed by your doctor. Never share this medicine with another person, especially someone with a history of drug abuse or addiction. MISUSE CAN CAUSE ADDICTION, OVERDOSE, OR . Keep the medicine in a place where others cannot get to it. Selling or giving away acetaminophen and hydrocodone is against the law. Measure liquid medicine carefully. Use the dosing syringe provided, or use a medicine dose-measuring device (not a kitchen spoon). If you need surgery or medical tests, tell the doctor ahead of time that you are using this medicine. You should not stop using this medicine suddenly. Follow your doctor's instructions about tapering your dose. Store at room temperature away from moisture and heat. Keep track of your medicine. You should be aware if anyone is using it improperly or without a prescription. Do not keep leftover opioid medication. Just one dose can cause in someone using this medicine accidentally or improperly. Ask your pharmacist where to locate a drug take-back disposal program. If there is no take-back program, flush the unused medicine down the toilet. What happens if I miss a dose? Since this medicine is used for pain, you are not likely to miss a dose. Skip any missed dose if it is almost time for your next dose. Do not use two doses at one time. What happens if I overdose? Seek emergency medical attention or call the Poison Help line at . An overdose of acetaminophen and hydrocodone can be fatal. The first signs of an acetaminophen overdose include loss of appetite, nausea, vomiting, stomach pain, sweating, and confusion or weakness. Later symptoms may include pain in your upper stomach, dark urine, and yellowing of your skin or the whites of your eyes. Overdose can also cause severe muscle weakness, pinpoint pupils, very slow breathing, extreme drowsiness, or coma. What should I avoid while taking acetaminophen and hydrocodone? Avoid driving or operating machinery until you know how this medicine will affect you. Dizziness or drowsiness can cause falls, accidents, or severe injuries. Do not drink alcohol. Dangerous side effects or could occur. Ask a doctor or pharmacist before using any other medicine that may contain acetaminophen (sometimes abbreviated as APAP). Taking certain medications together can lead to a fatal overdose. What are the possible side effects of acetaminophen and hydrocodone? Get emergency medical help if you have signs of an allergic reaction: hives; difficulty breathing; swelling of your face, lips, tongue, or throat. Opioid medicine can slow or stop your breathing, and may occur. A person caring for you should seek emergency medical attention if you have slow breathing with long pauses, blue colored lips, or if you are hard to wake up. In rare cases, acetaminophen may cause a severe skin reaction that can be fatal. This could occur even if you have taken acetaminophen in the past and had no reaction. Stop taking this medicine and call your doctor right away if you have skin redness or a rash that spreads and causes blistering and peeling. Call your doctor at once if you have: ? noisy breathing, sighing, shallow breathing; ?? a light-headed feeling, like you might pass out; ?? liver problems--nausea, upper stomach pain, tiredness, loss of appetite, dark urine, robert-colored stools, jaundice (yellowing of the skin or eyes); or ?? low cortisol levels-- nausea, vomiting, loss of appetite, dizziness, worsening tiredness or weakness. Seek medical attention right away if you have symptoms of serotonin syndrome, such as: agitation, hallucinations, fever, sweating, shivering, fast heart rate, muscle stiffness, twitching, loss of coordination, nausea, vomiting, or diarrhea. Serious side effects may be more likely in older adults and those who are overweight, malnourished, or debilitated. Long-term use of opioid medication may affect fertility (ability to have children) in men or women. It is not known whether opioid effects on fertility are permanent. Common side effects include: ? dizziness, drowsiness, feeling tired; ?? nausea, vomiting, stomach pain; ?? constipation; or ?? headache. This is not a complete list of side effects and others may occur. Call your doctor for medical advice about side effects. You may report side effects to FDA at 2-698-HWX-9143. What other drugs will affect acetaminophen and hydrocodone? You may have breathing problems or withdrawal symptoms if you start or stop taking certain other medicines. Tell your doctor if you also use an antibiotic, antifungal medication, heart or blood pressure medication, seizure medication, or medicine to treat HIV or hepatitis C. Opioid medication can interact with many other drugs and cause dangerous side effects or . Be sure your doctor knows if you also use: ? cold or allergy medicines, bronchodilator asthma/COPD medication, or a diuretic ('water pill'); ?? medicines for motion sickness, irritable bowel syndrome, or overactive bladder; ?? other narcotic medications--opioid pain medicine or prescription cough medicine; ?? a sedative like Valium--diazepam, alprazolam, lorazepam, Xanax, Klonopin, Versed, and others; ?? drugs that make you sleepy or slow your breathing--a sleeping pill, muscle relaxer, medicine to treat mood disorders or mental illness; ?? drugs that affect serotonin levels in your body--a stimulant, or medicine for depression, Parkinson's disease, migraine headaches, serious infections, or nausea and vomiting. This list is not complete. Other drugs may affect acetaminophen and hydrocodone, including prescription and [id number] medicines, vitamins, and herbal products. Not all possible interactions are listed here. Where can I get more information? Your doctor or pharmacist can provide more information about acetaminophen and hydrocodone. Remember, keep this and all other medicines out of the reach of children, never share your medicines with others, and use this medication only for the indication prescribed. Every effort has been made to ensure that the information provided by [employer]. ('[employer]') is accurate, up-to-date, and complete, but no guarantee is made to that effect. Drug information contained herein may be time sensitive. [employer] information has been compiled for use by healthcare practitioners and consumers in the [place] and therefore [employer] does not warrant that uses outside of the [place] are appropriate, unless specifically indicated otherwise. [employer] drug information does not endorse drugs, diagnose patients or recommend therapy. [employer] drug information is an informational resource designed to assist licensed healthcare practitioners in caring for their patients and/or to serve consumers viewing this service as a supplement to, and not a substitute for, the expertise, skill, knowledge and judgment of healthcare practitioners. The absence of a warning for a given drug or drug combination in no way should be construed to indicate that the drug or drug combination is safe, effective or appropriate for any given patient. [employer] does not assume any responsibility for any aspect of healthcare administered with the aid of information [employer] provides. The information contained herein is not intended to cover all possible uses, directions, precautions, warnings, drug interactions, allergic reactions, or adverse effects. If you have questions about the drugs you are taking, check with your doctor, nurse or pharmacist. Copyright 4537-5614 [employer]. Version: 15.. Revision Date: 12/27/2017. CIGARETTE SMOKING: The facts are clear, cigarette smoking will shorten your life. Smoking can cause many illnesses along the way. As a healthcare provider, we recommend that you stop smoking. Assistance with quitting is available by contacting 6-128-FIFS-NOW. This is a free resource providing counseling, support, and referral. Or you may contact your personal physician. 4 WAYS TO GET AHEAD OF SEPSIS SEPSIS is a MEDICAL EMERGENCY. Time matters! Infections put you and your family at risk for a life-threatening condition called sepsis. Sepsis is the body???s extreme response to an infection. It is life-threatening, and without timely treatment, sepsis can rapidly lead to tissue damage, organ failure, and . Sepsis happens when an infection you already have???in your skin, lungs, urinary tract or somewhere else???triggers a chain reaction throughout your body. 1 PREVENT INFECTIONS Take good care of chronic conditions. Talk to your doctor about getting the recommended vaccines. 2 PRACTICE GOOD HYGIENE Wash your hands frequently. Keep cuts or open sores clean and covered until they are healed. 3 KNOW THE SYMPTOMS Confusion or disorientation Shortness of breath High heart rate Fever, shivering, or feeling very cold Extreme pain or discomfort Clammy or sweaty skin 4 ACT FAST Get medical care IMMEDIATELY if you suspect sepsis or if you have an infection that???s not getting better or is getting worse. To learn more about sepsis and how to prevent infections, visit www.cdc.gov/sepsis. STROKE is an EMERGENCY [employer] ACT F.A.S.T! FACE ?? Facial droop ?? Uneven smile ARM ?? Arm numbness ?? Arm weakness SPEECH ?? Slurred speech ?? Difficulty speaking or understanding TIME ?? Call 911 and get to the hospital immediately Have the ambulance go to the nearest stroke center. STROKE Risk Factors High blood pressure High cholesterol Heart Disease Diabetes Smoking Heavy alcohol use Physical inactivity and obesity Atrial Fibrillation (irregular heartbeat) Family history of stroke Reminder: Be sure to sign up for the My1login patient portal, which gives you 14/09 access to your medical information ??? including these discharge instructions ??? using your computer, smartphone, or tablet. Just go to e[employer] to get started. Questions? Call . [facility] would like to thank you for allowing us to assist you with your healthcare needs. PAVEL Negr[employer] GARY LOU, (or customer assistance representative) have received the above patient education materials/instructions and have verbalized understanding: Patient Signature _ Date/Time Patient Wood Turner Signature (if needed) Date/Time Clinician/Hospital Wood Turner Signature (if needed) Date/Time Electronically signed by Katja, [facility] Conversion Account Financial Manager Cerner at 06/11/2022 12:18 PM CDT documented in this encounter Plan of Treatment Upcoming Encounters Date Type Department Care Team (Late st Contact Info) Description 01/29/2025 11:30 AM EST Office Visit [facility] Neurology - Shanita Converse [address] [place] [address] Kimberly Snell MD [address] [facility] [address] [place] [address] documented as of this encounter Visit Diagnoses Not on filedocumented in this encounter Care Teams Compounding And Finishing Supervisor Relationship Specialty Start Date End Date Kel Gagnon MD [address] [place] [address] PCP - General General Internal Medicine 10/12/22 documented as of this encounter
--- OUTSIDE RECORDS SUMMARY | 2024-12-12 07:01 | XMS_ITS | Clinical Summary ---
Author Organization [employer] ([place], [place], [place], [place]) Address [address] [place] [address] Care Team Providers Care Insurance Sales Professional Name Role Phone Kel Gagnon MD Primary Care Provider [phone] Allergies Active Allergy Reactions Criticality Noted Date [...] 10/07/2022 HLD (hyperlipidemia) 10/07/2022 Paroxysmal A-fib 10/07/2022 Encounters * This document contains information received from the source organization and may not represent a complete record from that organization. Date Type Department Care Team Description 12/01/2024 Orders Only [facility] Neurology [facility] [address] [place] [address] ProviderElizabeth MD 11/29/2024 3:15 PM EDT Office Visit [facility] [address] [place] [address] Kel Gagnon MD Everman, Nicole A, MD Moderate late onset Alzheimer's dementia, unspecified whether behavioral, psychotic, or mood disturbance or anxiety (HCC) (Primary Dx); Other fatigue; Avitaminosis D; Idiopathic polyneuropathy 11/29/2024 Travel 09/22/2024 Telephone [facility] Neurology [facility] [address] [place] [address] Kimberly Snell MD Appointment (Referral for Neurology New Patient Appointment) from Last 3 Months Family History Medical History Relation Name Comments Cancer Father Diabetes Father Emphysema Mother Alcohol abuse Other Rheum arthritis Other Relation Name Status Comments Father Mother Other Social History Tobacco Use Types Packs/Day Years [...] Date Marty rded Speak language other than Urdu at home Not on file 03/12/2023 Want [...] Description 01/29/2025 11:30 AM EST Office Visit [facility] Neurology - [facility] [address] [place] [address] Kimberly Snell MD [email or web address] [address] [place] [address] Health Maintenance Due Date Last Done Comments CT Colonography 1955 Colonoscopy 1955 Colorectal Cancer Screening 1955 FOBT/FIT 1955 Fit-DNA (Cologuard) 1955 Sigmoidoscopy 1956 Depression Screening (12+) 1968 Hepatitis C Screening 1974 DTAP/TDAP/TD VACCINES (1 - Tdap) 1975 Pneumococcal 50+ years (1 of 2 - PCV) 1975 Shingles Vaccine (Zoster) (1 of 2) 2006 Respiratory Syncytial Virus (RSV) Adult or (1 - Risk 60-74 years 1-dose series) 2016 Medicare Initial AWV [id number] 04/23/2024 COVID-19 VACCINE (2 - season) 10/23/202408/2020 Influenza Vaccine (#1) 2024 Tobacco Cessation Counseling and Screening (12+) 11/2911/29/2024 Falls Risk Screening Completed 11/29/2024 Insurance HU[employer]NA MEDICARE PPO AETNA [facility] AD[facility] Care Teams Insurance Sales Professional Relationship Specialty Start Date End Date Kel Gagnon MD [address] [place] [phone] PCP - General General Internal Medicine 10/12/22
--- OUTSIDE RECORDS SUMMARY | 2024-12-12 07:01 | XMS_ITS | Encounter Summary ---
Author Organization [employer] ([place], [place]) Address [address] [place] [address] Care Team Providers Care Dry House Operator Name Role Phone Kel Gagnon MD Primary Care Provider [phone] Encounter Details Date Type Department Care Team (Late st Contact Info) Description 04/05/2018 Transcribed Document [facility] Family [place] [address] ProviderElizabeth MD [address] [place] [address] Social History Tobacco Use Types Packs/Day Years Used Date Smoking Tobacco: Never Assessed Sex and Gender Information Value Date Recorded Sex Assigned at Not on file Legal Sex Male 6:12 PM CDT Gender Identity Not on file Sexual Orientation Not on file documented as of this encounter Miscellaneous Notes * Cerner Conversion Note - Historical ProviderMD - 04/05/2018 5:00 AM SURGICAL PATHOLOGIST Chart Check - Review Order Profile Entered On: 04/05/2018 3:23 EST Performed On: 04/05/2018 5:00 EST by TEJA POWERS RN Chart Check Chart Reviewed Date and Time : 04/05/2018 3:23 EST Powerplans Initiated/Discontinued as Appropriate : Not applicable All Active Orders Reviewed : Yes TEJA POWERS RN - 04/05/2018 3:23 EST Electronically signed by Katja [facility] Conversion Business Continuity Global Director Cerner at 06/11/2022 12:10 PM CDT documented in this encounter Plan of Treatment Upcoming Encounters Date Type Department Care Team (Late st Contact Info) Description 01/29/2025 11:30 AM EST Office Visit [facility] Neurology - [place] [address] [place] [phone] Kimberyl Snell MD [address] [facility] [address] [place] [address] documented as of this encounter Visit Diagnoses Not on filedocumented in this encounter Care Teams Dry House Operator Relationship Specialty Start Date End Date Kel Gagnon MD [address] [place] [address] PCP - General General Internal Medicine 10/12/22 documented as of this encounter
--- OUTSIDE RECORDS SUMMARY | 2024-12-12 07:01 | XMS_ITS | Encounter Summary ---
Author Organization [employer] ([place], [place], [place]) Address [address] [place] [address] Care Team Providers Care Tire Inspector Name Role Phone Kel Gagnon MD Primary Care Provider [phone] Encounter Details Date Type Department Care Team (Late st Contact Info) Description 04/05/[address] [facility] Family Medicine [address] [place] [address] ProviderElizabeth MD [address] [place] [id number] Social History Tobacco Use Types Packs/Day Years Used Date Smoking Tobacco: Never Assessed Sex and Gender Information Value Date Recorded Sex Assigned at Not on file Legal Sex Male 6:12 PM CDT Gender Identity Not on file Sexual Orientation Not on file documented as of this encounter Miscellaneous Notes * Cerner Conversion Note - Historical ProviderMD - 04/05/2018 12:04 PM SANDING SUPERVISOR Patient Education Materials Follows: documented in this encounter Plan of Treatment Upcoming Encounters Date Type Department Care Team (Late st Contact Info) Description 01/29/2025 11:30 AM EST Office Visit [facility]rology - [facility] [address] [facility] [address] [place] [address] Kimberly Snell MD [address] [facility] [address] [place] [address] documented as of this encounter Visit Diagnoses Not on filedocumented in this encounter Care Teams Tire Inspector Relationship Specialty Start Date End Date Kel Gagnon MD [address] [place] [address] PCP - General General Internal Medicine 10/12/22 documented as of this encounter
--- OUTSIDE RECORDS SUMMARY | 2024-12-12 07:01 | XMS_ITS | Encounter Summary ---
Author Organization [employer] ([place], [place]) Address [address] [place] [address] Care Team Providers Care Dock Worker Name Role Phone Kel Gagnon MD Primary Care Provider Encounter Details Date Type Department Care Team (Late st Contact Info) Description 04/05/2018 Transcribed Document [facility] [place] [facility] [place] [address] ProviderElizabeth MD [address] [place] [address] Social History Tobacco Use Types Packs/Day Years Used Date Smoking Tobacco: Never Assessed Sex and Gender Information Value Date Recorded Sex Assigned at Not on file Legal Sex Male 6:12 PM CDT Gender Identity Not on file Sexual Orientation Not on file documented as of this encounter Miscellaneous Notes * Cerner Conversion Note - Historical ProviderMD - 04/05/2018 12:02 PM LAP REGULATOR Nursing Discharge Summary Entered On: 04/05/2018 12:03 EST Performed On: 04/05/2018 12:02 EST by BLANCHE Farias RN Discharge Documentation Discharge Date/Time : 04/05/2018 12:02 EST Transporter Signature : BLANCHE Farias RN Patient Disposition, General : Discharge Discharge To : Home with ambulatory/outpatient follow-up Mode Of Departure, General Discharge : Private vehicle Accompanied By, Discharge : Spouse, Other: grandson IV Discontinued : Yes Medications Given to Patient : No Personal Belongings With Patient : Yes Prescriptions Given to Patient : Yes Discharge Instructions Reviewed With, Opportunity For Questions Given : Patient, Spouse Patient Education Completed : Yes Number of Prescriptions Given : 1 Teaching Method : Explanation Teaching Evaluation : Verbalizes understanding BLANCHE Farias, RN - 04/05/2018 12:02 EST documented in this encounter Plan of Treatment Upcoming Encounters Date Type Department Care Team (Late st Contact Info) Description 01/29/2025 11:30 AM EST Office Visit [facility] Neurology - [facility] [address] [place] [address] Kimberly Snell MD [address] [facility] [address] [place] [address] documented as of this encounter Visit Diagnoses Not on filedocumented in this encounter Care Teams Dock Worker Relationship Specialty Start Date End Date Kel Gagnon MD [address] [place] [address] PCP - General General Internal Medicine 10/12/22 documented as of this encounter
--- OUTSIDE RECORDS SUMMARY | 2024-12-12 07:01 | XMS_ITS | Encounter Summary ---
Author Organization [employer] ([place], [place], [place], [place]) Address [address] [place] [address] Care Team Providers Care Refractive Surgeon Name Role Phone Kel Gagnon MD Primary Care Provider [phone] Encounter Details Date Type Department Care Team (Late st Contact Info) Description 04/05/2018 Transcribed Document [facility] Family Medicine [facility] [place] [address] ProviderElizabeth MD [address] [place] [address] Social History Tobacco Use Types Packs/Day Years Used Date Smoking Tobacco: Never Assessed Sex and Gender Information Value Date Recorded Sex Assigned at Not on file Legal Sex Male 6:12 PM CDT Gender Identity Not on file Sexual Orientation Not on file documented as of this encounter Miscellaneous Notes * Cerner Conversion Note - Elizabeth Snyder MD - 04/05/2018 11:52 AM EMERGENCY TECHNICIAN [address] [place] [address] Patient Copy Patient Information: Name: GOMEZ BEAL Current Date: 04/05/2018 11:52:55 : 1955 Patient Address: [address] [place] [address] Patient Attending Physician: DARIO JEAN MD-JOSE G Primary Care Provider: KEL GAGNON MD Primary Care Provider Discharge Diagnosis: AAA (abdominal aortic aneurysm) without rupture Weight on Admission: 233 lb, 8 oz Comment: Follow-up Instructions: With: Address: When: DARIO JEAN [address] [place] [address], [address] [place] [id number] [phone] Business (1) 1:00 PM Comments: Appt. [...] Stay: No Immunizations Found Pain Management: take Woodbine as prescribed Special Instructions: call with fever greater than 101 F, increased pain not relieved with pain medication prescription, bleeding or drainage from incsions, or calll with any other concerns that you may have Heart Failure Discharge Instructions (if any): Stroke Related Discharge Instructions (if any): Warfarin Related Discharge Instructions (if any): Final Medication List: Other Medications acetaminophen-hydrocodone (Woodbine 7.5 mg-325 mg oral tablet) take one [...] and gino alexandrea KOE done) Hycet, Lorcet, Woodbine, Verdrocet, Vicodin, Xodol, Zamicet What is the [...] may report side effects to FDA at 3-228-DMQ-1965. What other drugs will affect acetaminophen and [...] affect acetaminophen and hydrocodone, including prescription and uxhk-hqv-mphulzb medicines, vitamins, and herbal products. Not all [...] to ensure that the information provided by [employer]. ('[employer]') is accurate, up-to-date, and complete, but no guarantee is made to that effect. Drug information contained herein may be time sensitive. [employer] information has been compiled for use by healthcare practitioners and consumers in the [place] and therefore [employer] does not warrant that uses outside of the [place] are appropriate, unless specifically indicated otherwise. [employer] drug information does not endorse drugs, diagnose patients or recommend therapy. [employer] drug information is an informational resource designed [...] effective or appropriate for any given patient. [employer] does not assume any responsibility for any aspect of healthcare administered with the aid of information [employer] provides. The information contained herein is not intended to cover all possible uses, directions, precautions, warnings, drug interactions, allergic reactions, or adverse effects. If you have questions about the drugs you are taking, check with your doctor, nurse or pharmacist. Copyright [address] [employer] Version: 15.. Revision Date: 12/27/2017. CIGARETTE SMOKING: The facts are clear, cigarette smoking will shorten your life. Smoking can cause many illnesses along the way. As a healthcare provider, we recommend that you stop smoking. Assistance with quitting is available by contacting 8-259-ZSIA-NOW. This is a free resource providing counseling, [...] Be sure to sign up for the [employer] patient portal, which gives you 14/09 access to your medical information ??? including these discharge instructions ??? using your computer, smartphone, or tablet. Just go to [employer] to get started. Questions? Call . [facility] would like to thank you for allowing us to assist you with your healthcare needs. PAVEL Negron GARY LOU, (or account service representative) have received the above patient education materials/instructions and have verbalized understanding: Patient Signature _ Date/Time Patient Stove Refinisher Signature (if needed) Date/Time Clinician/Hospital Stove Refinisher Signature (if needed) Date/Time Electronically signed by Katja, [facility] Conversion Ham Rolling Machine Operator Cerner at 06/11/2022 12:24 PM CDT documented in this encounter Plan of Treatment Upcoming Encounters Date Type Department Care Team (Late st Contact Info) Description 01/29/2025 11:30 AM EST Office Visit [facility] Neurology - [place] [address] [place] [address] Kimberly Snell MD [address] [facility] [address] [place] [address] documented as of this encounter Visit Diagnoses Not on filedocumented in this encounter Care Teams Refractive Surgeon Relationship Specialty Start Date End Date Kel Gagnon MD [address] [place] [address] PCP - General General Internal Medicine 10/12/22 documented as of this encounter
--- OUTSIDE RECORDS SUMMARY | 2024-12-12 07:01 | XMS_ITS | Encounter Summary ---
Author Organization [employer] ([place], [place], [place], [place]) Address [address] [place] [address] Care Team Providers Care Garment Patternmaker Name Role Phone Kel Gagnon MD Primary Care Provider [phone] Encounter Details Date Type Department Care Team (Late st Contact Info) Description 04/06/2018 Transcribed Document [facility] [place] [address] ProviderElizabeth MD [address] [place] [address] Social History Tobacco Use Types Packs/Day Years Used Date Smoking Tobacco: Never Assessed Sex and Gender Information Value Date Recorded Sex Assigned at Not on file Legal Sex Male 6:12 PM CDT Gender Identity Not on file Sexual Orientation Not on file documented as of this encounter Miscellaneous Notes * Cerner Conversion Note - Historical ProviderMD - 04/06/2018 1:48 PM ASSOCIATE WEB DEVELOPER Post Visit Phone Call Entered On: 04/06/2018 13:50 EST Performed On: 04/06/2018 13:48 EST by Sophie Pompa Rn Post Visit Phone Call Post Visit Phone Call History : First call, Left message Sophie Pompa Rn - 04/06/2018 13:48 EST Electronically signed by Katja [facility] Conversion Legal File Clerk Cerner at 06/11/2022 12:11 PM CDT documented in this encounter Plan of Treatment Upcoming Encounters Date Type Department Care Team (Late st Contact Info) Description 01/29/2025 11:30 AM EST Office Visit [facility] Neurology - [place] [address] [place] [address] Kimberly Snell MD [address] [facility] [address] [place] [address] documented as of this encounter Visit Diagnoses Not on filedocumented in this encounter Care Teams Garment Patternmaker Relationship Specialty Start Date End Date Kel Gagnon MD [address] [place] [address] PCP - General General Internal Medicine 10/12/22 documented as of this encounter
--- OUTSIDE RECORDS SUMMARY | 2024-12-12 07:01 | XMS_ITS | Encounter Summary ---
Author Organization [employer] ([place], [place], [place], [place]) Address [address] [place] [address] Care Team Providers Care Senior C Software Developer Name Role Phone Kel Gagnon MD Primary Care Provider [phone] Encounter Details Date Type Department Care Team (Late st Contact Info) Description 04/05/2018 Transcribed Document [facility] Family Medicine [address] [place] [address] ProviderElizabeth MD [address] [place] [address] Social History Tobacco Use Types Packs/Day Years Used Date Smoking Tobacco: Never Assessed Sex and Gender Information Value Date Recorded Sex Assigned at Not on file Legal Sex Male 6:12 PM CDT Gender Identity Not on file Sexual Orientation Not on file documented as of this encounter Miscellaneous Notes * Cerner Conversion Note - Elizabeth ProviderMD - 04/05/2018 11:28 AM BILINGUAL MANAGER Discharge Instructions Entered On: 04/05/2018 11:32 EST Performed On: 04/05/2018 11:28 EST by BLANCHE Farias RN DC Instructions HWD Stroke/TIA Discharge Ins : N/A Heart Failure Discharge Ins : N/A Warfarin Discharge Ins : N/A Diet After Discharge : Heart healthy diet Activity After Discharge : No heavy lifting over 10 pounds Driving After Discharge : Do not drive May Return To Work/School : may return to work when cleared by Dr. Fry Showering/Bathing : No tub bathing, soaking, or swimming, Other: may shower tomorrow Wound/Incision Care After Discharge : Keep operative site/wound site clean and dry Pain Management DC Instructions : take Twining as prescribed Special Instructions : call with fever greater than 101 F, increased pain not relieved with pain medication prescription, bleeding or drainage from incsions, or calll with any other concerns that you may have BLANCHE Farias, RN - 04/05/2018 11:28 EST Electronically signed by [facility], [facility] Conversion Nurse Ortho Cerner at 06/11/2022 12:21 PM CDT documented in this encounter Plan of Treatment Upcoming Encounters Date Type Department Care Team (Late st Contact Info) Description 01/29/2025 11:30 AM EST Office Visit [facility] Neurology - [facility] [address] [place] [address] Kimberly Snell MD [address] [facility] [address] [place] [address] documented as of this encounter Visit Diagnoses Not on filedocumented in this encounter Care Teams Senior C Software Developer Relationship Specialty Start Date End Date Kel Gagnon MD [address] [place] [address] PCP - General General Internal Medicine 10/12/22 documented as of this encounter
--- OUTSIDE RECORDS SUMMARY | 2024-12-12 07:01 | XMS_ITS | Encounter Summary ---
Author Organization [employer] ([place], [place], [place], [place]) Address [address] [place] [address] Care Team Providers Care Methods Study Analyst Name Role Phone Kel Gagnon MD Primary Care Provider [phone] Encounter Details Date Type Department Care Team (Late st Contact Info) Description 04/05/2018 Transcribed Document [facility] Family Medicine [facility] [place] [address] ProviderElizabeth MD [address] [place] [address] Social History Tobacco Use Types Packs/Day Years Used Date Smoking Tobacco: Never Assessed Sex and Gender Information Value Date Recorded Sex Assigned at Not on file Legal Sex Male 6:12 PM CDT Gender Identity Not on file Sexual Orientation Not on file documented as of this encounter Miscellaneous Notes * Cerner Conversion Note - Historical ProviderMD - 04/05/2018 10:11 AM NUTRITION SERVICES ASSISTANT Spiritual Care Assessment Entered On: 04/05/2018 11:38 EST Performed On: 04/05/2018 10:11 EST by TOMY DINH General Information Initial Visit : Yes Referred by : Inventory And Pricing Associate initiated Referral Reason Comment : Critical care visit Ministry Provided to : Patient Spiritual Framework : Integrated, provides strength/resource TOMY DINH - 04/05/2018 11:35 EST Spiritual Assessment Spiritual Assessment Comment/Summary Points : Patient up in chair, just finished eating post op day 1. He expresses gratitude in recalling events leading to surgery and successful procedure. He finds comfort in his gina and is supported by his and family. Patient anticipates discharge today. Spirital Assessment Comment/Summary Report : SPIRITUAL ASSESSMENT COMMENT/SUMMARY No qualifying data available. TOMY DINH P - 04/05/2018 11:35 EST Interventions Emotional Support : Empathic/Engaged listening, Feelings expressed, Relationship strengths identified Spiritual and Pentecostal : God/the Spiritual connection/strengths identified, Prayer shared, Spiritual/Pentecostal support provided TOMY DINH P - 04/05/2018 11:35 EST Electronically signed by [facility], [facility] Conversion Film Cutter Cerner at 06/11/2022 12:16 PM CDT documented in this encounter Plan of Treatment Upcoming Encounters Date Type Department Care Team (Late st Contact Info) Description 01/29/2025 11:30 AM EST Office Visit [facility] Neurology - [facility] [address] [facility] [address] [place] [address] Kimberly Snell MD [address] [facility] [address] [place] [address] documented as of this encounter Visit Diagnoses Not on filedocumented in this encounter Care Teams Methods Study Analyst Relationship Specialty Start Date End Date Kel Gagnon MD [address] [place] [address] PCP - General General Internal Medicine 10/12/22 documented as of this encounter
--- OUTSIDE RECORDS SUMMARY | 2024-12-12 07:01 | XMS_ITS | Encounter Summary ---
Author Organization [employer] ([place], [place], [place], [place]) Address [address] [place] [address] Care Team Providers Care Portable Machine Sander Name Role Phone Kel Gagnon MD Primary Care Provider [phone] Encounter Details Date Type Department Care Team (Late Contact Info) Description 04/05/2018 Transcribed Document [facility] [place] [facility] [place] [address] ProviderElizabeth MD [address] [place] [address] Social History Tobacco Use Types Packs/Day Years Used Date Smoking Tobacco: Never Assessed Sex and Gender Information Value Date Recorded Sex Assigned at Not on file Legal Sex Male 6:12 PM CDT Gender Identity Not on file Sexual Orientation Not on file documented as of this encounter Miscellaneous Notes * Cerner Conversion Note - Historical ProviderMD - 04/05/2018 12:30 PM VACCINES SOLUTIONS SPECIALIST Discharge Summary, PT Entered On: 04/05/2018 12:31 EST Performed On: 04/05/2018 12:30 EST by ANANTH MEDEL, PT Discharge Summary Reason for Discharge : Other: PT eval only. Discharged to, Therapy : Other: remains in acute care setting. Discharge Summary Comment, PT : Patient is independent with all mobility. No further skilled PT needs at this time. ANANTH MEDEL, PT - 04/05/2018 12:30 EST Electronically signed by Katja [facility] Conversion Lacquer Sizer Cerner at 06/11/2022 12:07 PM CDT documented in this encounter Plan of Treatment Upcoming Encounters Date Type Department Care Team (Late st Contact Info) Description 01/29/2025 11:30 AM EST Office Visit [facility] Neurology - Shanita [place]af[place] [address] [place] [address] Kimberly Snell MD [address] [place] [address] documented as of this encounter Visit Diagnoses Not on filedocumented in this encounter Care Teams Portable Machine Sander Relationship Specialty Start Date End Date Kel Gagnon MD [address] [place] [address] PCP - General General Internal Medicine 10/12/22 documented as of this encounter
--- OUTSIDE RECORDS SUMMARY | 2024-12-12 07:01 | XMS_ITS | Encounter Summary ---
Author Organization [employer] ([place], [place], [place], [place]) Address [address] [place] [address] Care Team Providers Care Skiagrapher Name Role Phone Kel Gagnon MD Primary Care Provider [phone] Encounter Details Date Type Department Care Team (Late st Contact Info) Description 04/01/2018 Transcribed Document [facility] [place] Family Medicine [address] [place] [address] ProviderElizabeth MD [address] [place] [address] Social History Tobacco Use Types Packs/Day Years Used Date Smoking Tobacco: Never Assessed Sex and Gender Information Value Date Recorded Sex Assigned at Not on file Legal Sex Male 6:12 PM CDT Gender Identity Not on file Sexual Orientation Not on file documented as of this encounter Miscellaneous Notes * Cerner Conversion Note - Historical ProviderMD - 04/01/2018 10:31 AM CHICKEN SEXER PAT Adult Entered On: 04/01/2018 10:32 EST Performed On: 04/01/2018 10:31 EST by Rhonda Quigley RN Vital Measurements Temperature Source : Temporal artery scanning Temperature, Fahrenheit : 97.3 Deg F Clinical Temperature, C : 36.3 Deg C Pulse Method : Pulse Oximetry Peripheral Pulse Rate : 52 bpm (LOW) Respiratory Rate : 16 Breaths/Min Blood Pressure Location : Arm, right upper Blood Pressure Source : Non-Invasive BP Device Systolic Blood Pressure : 130 mmHg Diastolic Blood Pressure : 79 mmHg Oxygen Saturation : 98 % Oxygen Therapy Mode : Room air Rhonda Quigley RN - 04/01/2018 10:31 EST Height and Weight, Clinical Dosing Height Source : Measured Height Entry Format : Boyle Height, Feet : 0 ft(Converted to: 0 cm, 0 Inch) Height, Inches : 75 Inch(Converted to: 6 ft 3 Inch, 190.50 cm) Clinical Height : 190.5 cm Weight Source : Standing scale Weight Entry Format : Boyle Clinical Dosing Weight : 106.14 kg Weight, Pounds : 233.5 lb Body Surface Area (BSA) : 2.35 m2 Body Mass Index : 29.2 kg/m2 (HI) [place] Body Weight : 83 kg Rhonda Quigley RN - 04/01/2018 10:31 EST Health Histories Smokeless Tobacco Status : Never Rhonda Quigley RN - 04/01/2018 10:36 EST Smoking Status : Former smoker, quit more than 30 days ago Rhonda Quigley RN - 04/01/2018 10:35 EST Social History (As Of: 04/01/2018 10:49:01 EST) Tobacco: Former smoker, quit more than [...] 04/01/2018 10:37:17 EST by Rhonda Quigley RN) Infectious Disease History Fever/Chills Last 48 Hours : No HANG XIAO RN - 04/04/2018 8:54 EST Infectious Disease History : None, Chicken pox/Shingles, Measles Travel To Regions with Travel Advisories : No Travel Outside [place] Within Last 30 Days : No Contact With Traveler to Advisory Region : No Tuberculosis Symptoms : None Rhonda Quigley RN - 04/01/2018 10:36 EST Anesthesia/Transfusion History Family History of Anesthesia Reaction : No prior transfusion(s) Blood Transfusion Acceptable to Patient : Yes Transfusion History : Prior anesthesia without reaction Family History of Anesthesia Reaction : None Rhonda Quigley RN - 04/01/2018 10:36 EST Advance Directive Patient has Advance Directive *Q : No, patient refuses Advance Directive information Rhonda Quigley RN - 04/01/2018 10:36 EST Spiritual/Cultural Needs Any Spiritual/Cultural Needs or Requests : No Rhonda Quigley RN - 04/01/2018 10:36 EST Psychosocial History Do You Have a History of the Following? : Patient denies history Currently in Unsafe Situation : No Tried to Harm Yourself in the Past? : No Thoughts of Harming/Killing Yourself : No Rhonda Quigley RN - 04/01/2018 10:36 EST Teaching/Learning Assessment Barriers To Learning : None evident Individuals Taught : Patient, Spouse Readiness to Learn : Cooperative Baseline Knowledge of Topic : Good Readiness to Learn : Printed materials Rhonda Quigley RN - 04/01/2018 10:36 EST Education Topics, Periop Preadmission Perioperative Education Grid Arrival Time/Place : Verbalizes understanding IV's : Verbalizes understanding NPO Status/Directions : Verbalizes understanding Preprocedure Preparations : Verbalizes understanding Preprocedure Tests/Labs : Verbalizes understanding Take/Hold Medications Pre-Procedure : Verbalizes understanding Rhonda Quigley RN - 04/01/2018 10:36 EST General Info Preferred Name : Gomez Arrived From : Home Mode of Arrival on Unit : Ambulatory Legal Guardian : Spouse Support Person/Pt Rep Name : Karena Beal Support Person/Pt Rep Contact Information : [phone] Want Family/Rep/Phys Notified of Admit : No Emergency Contact #1 : Karena Beal Emergency Contact #1 Emergency Contact #1 Relationship : Emergency Contact #2 : Autumn Dia Emergency Contact #2 Emergency Contact #2 Relationship : daughter Information Obtained From : Patient Primary Language : Latvian Communication Barrier : None Rhonda Quigley RN - 04/01/2018 10:36 EST Victoriano Scale Victoriano Sensory Perception : No impairment Victoriano Moisture : Rarely moist Victoriano Activity : Walks frequently Victoriano Mobility : No limitation Victoriano Nutrition : Excellent Victoriano Friction and Shear : No apparent problem Victoriano Score : 23 Rhonda Quigley RN - 04/01/2018 10:36 EST Sleep Apnea Risk Assmt Hx of [...] Circumference Greater Than 40 cm : Yes Rhonda Quigley RN - 04/01/2018 10:36 EST Electronically signed by [facility], [facility] Conversion Materials Mgmt Tech Cerner at 06/11/2022 12:27 PM CDT documented in this encounter Plan of Treatment Upcoming Encounters Date Type Department Care Team (Late st Contact Info) Description 01/29/2025 11:30 AM EST Office Visit [facility] Neu[facility] - [facility] [address] [place] [id number] Kimberly Snell MD [address] [facility] [address] [place] [address] documented as of this encounter Visit Diagnoses Not on filedocumented in this encounter Care Teams Skiagrapher Relationship Specialty Start Date End Date Kel Gagnon MD [address] [place] [address] PCP - General General Internal Medicine 10/12/22 documented as of this encounter
--- OUTSIDE RECORDS SUMMARY | 2024-12-12 07:01 | XMS_ITS | Encounter Summary ---
Author Organization [employer] ([place], [place], [place], [place]) Address [address] [place] [address] Care Team Providers Care Water Systems Engineer Name Role Phone Kel Gagnon MD Primary Care Provider [phone] Encounter Details Date Type Department Care Team (Late st Contact Info) Description 04/05/[address] [facility] [place] [facility] [place] [address] ProviderElizabeth MD [address] [place] [address] Social History Tobacco Use Types Packs/Day Years Used Date Smoking Tobacco: Never Assessed Sex and Gender Information Value Date Recorded Sex Assigned at Not on file Legal Sex Male 6:12 PM CDT Gender Identity Not on file Sexual Orientation Not on file documented as of this encounter Miscellaneous Notes * Cerner Conversion Note - Elizabeth Snyder MD - 04/05/2018 12:03 PM EDUCATION PROGRAM ASSOCIATE [address] [place] [address] Patient Copy Patient Information: Name: GOMEZ BEAL Current Date: 04/05/2018 12:03:47 : 1955 Patient Address: [address] [address] Patient Attending Physician: DARIO JEAN MD-JOSE G Primary Care Provider: KEL GAGNON MD Primary Care Provider Discharge Diagnosis: AAA (abdominal aortic aneurysm) without rupture Weight on Admission: 233 lb, 8 oz Comment: Follow-up Instructions: With: Address: When: DARIO JEAN [address] [place] [address], [address] [place] [phone] Business (1) 1:00 PM Comments: Appt. [...] Stay: No Immunizations Found Pain Management: take [place] as prescribed Special Instructions: call with fever greater than 101 F, increased pain not relieved with pain medication prescription, bleeding or drainage from incsions, or calll with any other concerns that you may have Heart Failure Discharge Instructions (if any): Stroke Related Discharge Instructions (if any): Warfarin Related Discharge Instructions (if any): Final Medication List: Other Medications acetaminophen-hydrocodone ([place] 7.5 mg-325 mg oral tablet) take one [...] and gino alexandrea KOE done) Hycet, Lorcet, [place], Verdrocet, Vicodin, Xodol, Zamicet What is the [...] may report side effects to FDA at 7-336-AFU-4584. What other drugs will affect acetaminophen and [...] affect acetaminophen and hydrocodone, including prescription and cmqa-jgo-ndsbdwi medicines, vitamins, and herbal products. Not all [...] to ensure that the information provided by [employer]. ('[employer]') is accurate, up-to-date, and complete, but no guarantee is made to that effect. Drug information contained herein may be time sensitive. [employer] information has been compiled for use by healthcare practitioners and consumers in the [place] and therefore [employer] does not warrant that uses outside of the [place] are appropriate, unless specifically indicated otherwise. [employer] drug information does not endorse drugs, diagnose patients or recommend therapy. [employer] drug information is an informational resource designed [...] effective or appropriate for any given patient. [employer] does not assume any responsibility for any aspect of healthcare administered with the aid of information [employer] provides. The information contained herein is not intended to cover all possible uses, directions, precautions, warnings, drug interactions, allergic reactions, or adverse effects. If you have questions about the drugs you are taking, check with your doctor, nurse or pharmacist. Copyright 3685-5048 [employer]. Version: 15.. Revision Date: 12/27/2017. CIGARETTE SMOKING: The facts are clear, cigarette smoking will shorten your life. Smoking can cause many illnesses along the way. As a healthcare provider, we recommend that you stop smoking. Assistance with quitting is available by contacting 2-595-SMRE-NOW. This is a free resource providing counseling, [...] Be sure to sign up for the inEarth patient portal, which gives you 14/09 access to your medical information ??? including these discharge instructions ??? using your computer, smartphone, or tablet. Just go to [employer] to get started. Questions? Call . [facility] would like to thank you for allowing us to assist you with your healthcare needs. PAVEL Negron GARY LOU, (or regional sales representative) have received the above patient education materials/instructions and have verbalized understanding: Patient Signature _ Date/Time Patient General Supervisor Signature (if needed) Date/Time Clinician/Hospital General Supervisor Signature (if needed) Date/Time Electronically signed by Katja, [facility] Conversion Transportation Supervisor Cerner at 06/11/2022 12:33 PM CDT documented in this encounter Plan of Treatment Upcoming Encounters Date Type Department Care Team (Late st Contact Info) Description 01/29/2025 11:30 AM EST Office Visit [facility] Neurology - Shanita [place] [address] [place] [phone] Kimberly Snell MD [address] [facility] [address] [place] [address] documented as of this encounter Visit Diagnoses Not on filedocumented in this encounter Care Teams Water Systems Engineer Relationship Specialty Start Date End Date Kel Gagnon MD [address] [place] [address] PCP - General General Internal Medicine 10/12/22 documented as of this encounter
--- OUTSIDE RECORDS SUMMARY | 2024-12-12 07:01 | XMS_ITS | Encounter Summary ---
Author Organization [employer] ([place], [place], [place], [place]) Address [address] [place] [address] Care Team Providers Care Reconciler Name Role Phone Kel Gagnon MD Primary Care Provider [phone] Encounter Details Date Type Department Care Team (Late st Contact Info) Description 04/05/2018 Transcribed Document [facility] [place] [facility] [place] [address] ProviderElizabeth MD [address] [place] [address] Social History Tobacco Use Types Packs/Day Years Used Date Smoking Tobacco: Never Assessed Sex and Gender Information Value Date Recorded Sex Assigned at Not on file Legal Sex Male 6:12 PM CDT Gender Identity Not on file Sexual Orientation Not on file documented as of this encounter Miscellaneous Notes * Cerner Conversion Note - Elizabeth Snyder MD - 04/05/2018 11:32 AM PHARMACOVIGILANCE SCIENTIST [address] [place] [address] Patient Copy Patient Information: Name: GOMEZ BEAL Current Date: 04/05/2018 11:32:52 : 1955 Patient Address: [address] [address] Patient Attending Physician: DARIO JEAN MD-JOSE G Primary Care Provider: KEL GAGNON MD Primary Care Provider Discharge Diagnosis: AAA (abdominal aortic aneurysm) without rupture Weight on Admission: 233 lb, 8 oz Comment: Follow-up Instructions: With: Address: When: DARIO JEAN [address] [place] [place] [address], [address] [place] [phone] griddig (1) In 2 weeks 04/19/2018 Discharge Instructions: Diet after Discharge: Heart healthy [...] Stay: No Immunizations Found Pain Management: take [place] as prescribed Special Instructions: call with fever greater than 101 F, increased pain not relieved with pain medication prescription, bleeding or drainage from incsions, or calll with any other concerns that you may have Heart Failure Discharge Instructions (if any): Stroke Related Discharge Instructions (if any): Warfarin Related Discharge Instructions (if any): Final Medication List: Other Medications acetaminophen-hydrocodone ([place] 7.5 mg-325 mg oral tablet) take one [...] SEET a MIN oh fen and gino droe KOE done) Hycet, Lorcet, [place], Verdrocet, Vicodin, Xodol, Zamicet What is the [...] may report side effects to FDA at 9-811-WWG-2824. What other drugs will affect acetaminophen and [...] affect acetaminophen and hydrocodone, including prescription and wfqb-rkf-wvdcmeq medicines, vitamins, and herbal products. Not all [...] to ensure that the information provided by [employer]. ('Multum') is accurate, up-to-date, and complete, but no guarantee is made to that effect. Drug information contained herein may be time sensitive. GumGum information has been compiled for use by healthcare practitioners and consumers in the [place] and therefore GumGum does not warrant that uses outside of the [place] are appropriate, unless specifically indicated otherwise. SupportLocals drug information does not endorse drugs, diagnose patients or recommend therapy. SupportLocals drug information is an informational resource designed [...] effective or appropriate for any given patient. GumGum does not assume any responsibility for any aspect of healthcare administered with the aid of information GumGum provides. The information contained herein is not intended to cover all possible uses, directions, precautions, warnings, drug interactions, allergic reactions, or adverse effects. If you have questions about the drugs you are taking, check with your doctor, nurse or pharmacist. Copyright 7409-7280 [employer]. Version: 15.02. Revision Date: 12/27/2017. CIGARETTE SMOKING: The facts are clear, cigarette smoking will shorten your life. Smoking can cause many illnesses along the way. As a healthcare provider, we recommend that you stop smoking. Assistance with quitting is available by contacting 7-437-DOTW-NOW. This is a free resource providing counseling, [...] Be sure to sign up for the Bubbleball patient portal, which gives you 14/09 access to your medical information ??? including these discharge instructions ??? using your computer, smartphone, or tablet. Just go to [employer] to get started. Questions? Call . [facility] would like to thank you for allowing us to assist you with your healthcare needs. PAVEL Negron GARY LOU, (or community engagement representative) have received the above patient education materials/instructions and have verbalized understanding: Patient Signature _ Date/Time Patient Heating Unit Mechanic Signature (if needed) Date/Time Clinician/Hospital Heating Unit Mechanic Signature (if needed) Date/Time documented in this encounter Plan of Treatment Upcoming Encounters Date Type Department Care Team (Late st Contact Info) Description 01/29/2025 11:30 AM EST Office Visit [facility] Neurology - Shanita [place] [address] [place] [phone] Kimberly Snell MD [address] [facility] [address] [place] [address] documented as of this encounter Visit Diagnoses Not on filedocumented in this encounter Care Teams Reconciler Relationship Specialty Start Date End Date Kel Gagnon MD [address] [place] [address] PCP - General General Internal Medicine 10/12/22 documented as of this encounter
--- OUTSIDE RECORDS SUMMARY | 2024-12-12 07:01 | XMS_ITS | Encounter Summary ---
Author Organization [employer] ([place], [place], [place], [place]) Address [address] [place] [address] Care Team Providers Care Bioinformatics Specialist Name Role Phone Kel Gagnon MD Primary Care Provider [phone] Encounter Details Date Type Department Care Team (Late st Contact Info) Description 04/04/2018 Transcribed Document [facility] [place] Family Medicine [address] [place] [address] ProviderElizabeth MD [address] [place] [address] Social History Tobacco Use Types Packs/Day Years Used Date Smoking Tobacco: Never Assessed Sex and Gender Information Value Date Recorded Sex Assigned at Not on file Legal Sex Male 6:12 PM CDT Gender Identity Not on file Sexual Orientation Not on file documented as of this encounter Miscellaneous Notes * Cerner Conversion Note - Historical ProviderMD - 04/04/2018 1:07 PM SCUDDING INSPECTOR Pain Assessment Entered On: 04/04/2018 20:11 EST Performed On: 04/04/2018 15:00 EST by BLANCHE Farias RN Intervention Information: acetaminophen-HYDROcodone Performed by BLANCHE Farias RN on 04/04/2018 14:00:00 EST acetaminophen-HYDROcodone,2Tab Oral,Pain (Severe 7-10) Pain Assessment Pain Assessment : Follow-up assessment Pain Scale Goal : 3 Pain Improved by : Medication Pain Improved by Intervention : Yes BLANCHE Farias RN - 04/04/2018 20:11 EST Electronically signed by Katja [facility] Conversion Cart Pusher Cerner at 06/14/2022 4:54 PM CDT documented in this encounter Plan of Treatment Upcoming Encounters Date Type Department Care Team (Late st Contact Info) Description 01/29/2025 11:30 AM EST Office Visit [facility] Neurology - [place] [address] [place] [phone] Kimberly Snell MD [address] [facility] [address] [place] [address] documented as of this encounter Visit Diagnoses Not on filedocumented in this encounter Care Teams Bioinformatics Specialist Relationship Specialty Start Date End Date Kel Gagnon MD [address] [place] [address] PCP - General General Internal Medicine 10/12/22 documented as of this encounter
--- OUTSIDE RECORDS SUMMARY | 2024-12-12 07:01 | XMS_ITS | Encounter Summary ---
Author Organization [employer] ([place], [place], [place], [place]) Address [address] [place] [address] Care Team Providers Care Heel Washer Stringing Machine Operator Name Role Phone Kel Gagnon MD Primary Care Provider [phone] Encounter Details Date Type Department Care Team (Late st Contact Info) Description 04/04/2018 Transcribed Document [facility] [place] [address] [place] [address] ProviderElizabeth MD [address] [place] [address] Social History Tobacco Use Types Packs/Day Years Used Date Smoking Tobacco: Never Assessed Sex and Gender Information Value Date Recorded Sex Assigned at Not on file Legal Sex Male 6:12 PM CDT Gender Identity Not on file Sexual Orientation Not on file documented as of this encounter Miscellaneous Notes * Cerner Conversion Note - Elizabeth ProviderMD - 04/04/2018 12:15 PM TRAINING PROGRAM MANAGER [facility] Main OR IntraOp Summary Primary Physician: DARIO JEAN MD-SUR Finalized Date/Time: 04/05/18 11:22:51 Pt. Name: GOMEZ BEAL ROX Carvajal/Sex: 1955 Male Med Rec #: [id number] Physician: DARIO JEAN MD-SUR Financial #: [id number] Pt. Type: I Room/Bed: [facility]/ Admit/Disch: 04/04/18 13:07:00 - Institution: [facility] IntraOp Case Attendance Entry 1 Entry 2 Entry 3 Case Attendee DARIO JEAN MD-Tiana Rouse RN Kiebler, Rachael A, Rn Role Performed Surgeon/Proceduralist, Wrecker Driver, First Wrecker Driver, Second First Time In 04/04/18 11:49:00 04/04/18 11:49:00 04/04/18 11:49:00 Time Out 04/04/18 13:12:00 04/04/18 13:12:00 04/04/18 13:12:00 Procedure Aortic Stent Placement Aortic Stent Placement Aortic Stent Placement Endovascular Endovascular Endovascular Other Attendee Superficial Wound Closed By: Last Modified By: Tiana Ware RN Napier, Elizabeth A, RN Napier, Elizabeth A, RN 04/04/18 13:13:59 04/04/18 13:13:59 04/04/18 13:13:59 Entry 4 Entry 5 Entry 6 Case Attendee Karla Gilbert [employer] Sherlock, Kristi, TAY, JAMES, MD Angiography Tech Role Performed Petroleum Refinery Laborer Petroleum Refinery Laborer Anesthesiologist of Record Time In 04/04/18 11:49:00 04/04/18 11:49:00 04/04/18 11:49:00 Time Out 04/04/18 13:12:00 04/04/18 13:12:00 04/04/18 13:12:00 Procedure Aortic Stent Placement Aortic Stent Placement Aortic Stent Placement Endovascular Endovascular Endovascular Other Attendee Superficial Wound Closed By: Last Modified By: Tiana Ware RN Napier, Elizabeth A, RN Napier, Elizabeth A, RN 04/04/18 13:13:59 04/04/18 13:13:59 04/04/18 13:13:59 Entry 7 Entry 8 Case Attendee CHENCHO FARLEY, SPECIMEN PREPARATION ASSISTANT OTHER, ATTENDEE #1 Role Performed SPECIMEN PREPARATION ASSISTANT/Nurse Kitchen Food Server Vendor Time In 04/04/18 11:49:00 04/04/18 11:49:00 Time Out 04/04/18 13:12:00 04/04/18 13:12:00 Procedure Aortic Stent Placement Aortic Stent Placement Endovascular Endovascular Other Attendee PADMAJA HUBBARD Superficial Wound Closed By: Last Modified By: Chaz, Tiana A, Tiana Edmonds RN 04/04/18 13:13:59 04/04/18 13:13:59 [facility] IntraOp Case Attendance Audit 04/04/18 13:13:59 Holistic Specialist: FERNANDO Modifier: EANAPIER 1 <+> Time Out 1 <*> Procedure Aortic Stent Placement Endovascular 2 <+> Time Out 2 <*> Procedure Aortic Stent Placement Endovascular 3 <+> Time Out 3 <*> Procedure Aortic Stent Placement Endovascular 4 <+> Time Out 4 <*> Procedure Aortic Stent Placement Endovascular 5 <+> Time Out 5 <*> Procedure Aortic Stent Placement Endovascular 6 <+> Time Out 6 <*> Procedure Aortic Stent Placement Endovascular 7 <+> Time Out 7 <*> Procedure Aortic Stent Placement Endovascular 8 <+> Time Out 8 <*> Procedure Aortic Stent Placement Endovascular 04/04/18 12:57:16 Holistic Specialist: EANAPIER Modifier: EANAPIER <+> 1 Procedure 2 <*> Procedure Aortic Stent Placement Endovascular 3 <*> Procedure Aortic Stent Placement Endovascular 4 <*> Procedure Aortic Stent Placement Endovascular 5 <*> Procedure Aortic Stent Placement Endovascular 6 <*> Procedure Aortic Stent Placement Endovascular 7 <*> Procedure Aortic Stent Placement Endovascular 8 <*> Procedure Aortic Stent Placement Endovascular 04/04/18 12:49:50 Holistic Specialist: NEHANAPIER Modifier: EANAPIER 2 <*> Procedure Aortic Stent Placement Endovascular 3 <*> Procedure Aortic Stent Placement Endovascular 4 <*> Procedure Aortic Stent Placement Endovascular 5 <*> Procedure Aortic Stent Placement Endovascular 6 <*> Procedure Aortic Stent Placement Endovascular 7 <*> Procedure Aortic Stent Placement Endovascular 8 <+> Time In 8 <*> Procedure Aortic Stent Placement Endovascular 04/04/18 12:46:45 Holistic Specialist: NEHANAPIER Modifier: EANAPIER <+> 8 Case Attendee <+> 8 Role Performed <+> 8 Procedure <+> 8 Other Attendee 04/04/18 11:49:29 Holistic Specialist: EANAPIER Modifier: EANAPIER <+> 1 Time In 2 <+> Time In 2 <*> Procedure Aortic Stent Placement Endovascular 3 <+> Time In 3 <*> Procedure Aortic Stent Placement Endovascular 4 <+> Time In 4 <*> Procedure Aortic Stent Placement Endovascular 5 <+> Time In 5 <*> Procedure Aortic Stent Placement Endovascular 6 <+> Time In 6 <*> Procedure Aortic Stent Placement Endovascular 7 <+> Time In 7 <*> Procedure Aortic Stent Placement Endovascular [facility] IntraOp Case Times Entry 1 Patient In Room Time 04/04/18 11:49:00 Out Room Time 04/04/18 13:12:00 Anesthesia Start Time 04/04/18 11:49:00 Stop Time 04/04/18 13:12:00 Surgery / Procedure Times Start Time 04/04/18 12:15:00 Stop Time 04/04/18 13:01:00 Last Modified By: Tiana Ware RN 04/04/18 13:13:17 [facility] IntraOp Case Times Audit 04/04/18 13:13:17 Holistic Specialist: EANAPIER Modifier: EANAPIER <+> 1 Out Room Time <+> 1 Stop Time 04/04/18 13:00:26 Holistic Specialist: EANAPIER Modifier: EANAPIER <+> 1 Stop Time 04/04/18 12:15:11 Holistic Specialist: EANAPIER Modifier: EANAPIER <+> 1 Start Time [facility] IntraOp Cautery Entry 1 ESU Identification Cautery Type Monopolar ESU ID Number [id number] ID Type Hospital Number Cautery Settings Cut Setting 30 Coag Setting 30 ESU Grounding Pad Ground Pad Type Adult Grounding Pad Site Right Flank Grounding Pad Tiana Ware RN Applied By Grounding Pad Site Intact, Warm, Dry Skin Condition Before Cautery Grounding Pad Site Unchanged Skin Condition After Cautery Last Modified By: Tiana Ware RN 04/04/18 11:50:10 [facility] IntraOp Communication Entry 1 Entry 2 Entry 3 Communication To Family/Significant other Family/Significant other Other Comment START CLOSING CTVU-CLOSING Communication By Coni Alcaraz Rn Kiebler, Rachael A, Rn Kiebler, Rachael A, Rn Date and Time 04/04/18 12:57:00 04/04/18 12:57:00 Last Modified By: Tiana Ware RN Napier, Elizabeth A, RN Napier, Elizabeth A, RN 04/04/18 12:16:49 04/04/18 12:57:03 04/04/18 12:57:03 [facility] IntraOp Communication Audit 04/04/18 12:57:03 Holistic Specialist: FERNANDO Modifier: FERNANDO <+> 2 Communication By <+> 2 Date and Time <+> 2 Communication To <+> 2 Comment <+> 3 Communication By <+> 3 Date and Time <+> 3 Communication To <+> 3 Comment [facility] IntraOp Departure from OR Entry 1 Integumentary Assessment Integumentary WDL Assessment WDL Transfer/Handoff Transfer to ICU - Cardiovascular Handoff Method Bedside/Face to face, Phone call Post-op Transport Bed (including Via specialty) Patient Transport CHENCHO FARLEY CRNA, Accompanied by Coni Alcaraz Rn Transfer/Handoff ICU BED REQUESTED Comments Last Modified By: Tiana Ware RN 04/04/18 12:22:43 [facility] IntraOp Dressing and Packing Entry 1 Type Dressing Location GROIN Wound Dressing Item Occlusive dressing Applied By DARIO JEAN MD-JOSE G Last Modified By: Tiana Ware RN 04/04/18 12:42:35 [facility] IntraOp Fire Risk Assessment Entry 1 Fire Info Surgical Site or 0- No Incision Above the Xyphoid Open O2 Source 0- No (Mask or Cannula) Available Ignition 0- No (ESU, Laser, Light Source) Fire Risk 1 Assessment Score Fire Score Fire Risk Yes Assessment Complete Fire Risk Tiana Ware RN Assessment Verified By Fire Risk 04/04/18 11:46:00 Assessment Verified Date/Time Fire Risk Standard Fire Yes Safety Precautions Followed Last Modified By: Tiana Ware RN 04/04/18 11:45:41 [facility] IntraOp General Case Dry Placer Machine Operator 1 Case Information OR OR 20 [facility] Case Level 1 Room Verified Yes Wound Class I - Clean Specialty SN Endovascular Anesthesia Type MAC ASA Class 3 Diagnosis Preop Diagnosis AAA Postop Same As Preop No Postop Diagnosis SEE MD NOTE Last Modified By: Tiana Ware RN 04/04/18 11:47:15 [facility] IntraOp Implant Log Entry 1 Entry 2 Entry 3 Type Implant (Synthetic) Implant (Synthetic) Implant (Synthetic) Implant Log Implant Type Other Tissue Implant Type Implant CLOSURE SYS PERCLOSE STENT GRFT EXCLUDER GRFT EXCLUDER Identification PROGL [id number] Description Implant Quantity 6 1 1 Implant Site MAIN BODY LEFT COMMON ILIAC Implant Identification Model Number Implant [id number] Identification Serial Number Implant [id number] Identification Lot Number Implant Nieto Lab:Vasc Dev [employer]:Med Prdt [employer]:Med Prdt Identification Lending Manager Name: Implant [id number] Identification Catalog Number Implant Size Implant Has an Yes Yes Yes Expiration Date Implant Expiration 11/22/19 07/19/20 01/09/21 Date Wasted Radioactive Material Time Implanted Tissue Implant Continue for Tissue Implant Documentation Tissue Identification Number Graft Prep Per Lending Manager Instructions: Tissue Preparation Method: Reconstitution Solution: Reconstitution Solution Lot Number Reconstitution Solution Expiration Date: Thawing Solution Thawing Solution Lot Number Thawing Solution Expiration Date Preparation Materials, Other Preparation Materials, Other Lot Number Preparation Materials, Other Expiration Date Tissue Prepared/Processed By Lending Manager Paperwork Completed Implant Type Comment Last Modified By: Tiana Ware RN Napier, Elizabeth A, RN Napier, Elizabeth A, RN 04/04/18 12:30:11 04/04/18 12:38:31 04/04/18 12:45:53 [facility] IntraOp Implant Log Audit 04/04/18 12:45:53 Holistic Specialist: FERNANDO Modifier: EANAPIER <+> 3 Implant Identification Description <+> 3 Implant Identification Serial Number <+> 3 Implant Identification Lending Manager Name: <+> 3 Implant Expiration Date <+> 3 Implant Site <+> 3 Implant Quantity <+> 3 Implant Identification Catalog Number <+> 3 Implant Has an Expiration Date <+> 3 Type 04/04/18 12:38:31 Holistic Specialist: EANAPIER Modifier: EANAPIER <+> 2 Implant Identification Description <+> 2 Implant Identification Serial Number <+> 2 Implant Identification Lending Manager Name: <+> 2 Implant Expiration Date <+> 2 Implant Site <+> 2 Implant Quantity <+> 2 Implant Identification Catalog Number <+> 2 Implant Type <+> 2 Implant Has an Expiration Date <+> 2 Type 04/04/18 12:30:11 Holistic Specialist: EANAPIER Modifier: EANAPIER 1 <*> Implant Identification Description CLOSURE SYS PERCLOSE PROGL [id number] <*> Implant Quantity 4 [facility] IntraOp Intraoperative Assessment Entry 1 Handoff Method Online nursing summary Valid History / Yes Physical in Chart Preoperative Yes Checklist Reviewed/Evaluated Allergies Reviewed Yes Patient is Latex No Sensitive Isolation Not applicable Precautions Noted Level of WDL Consciousness (WDL = Alert, Oriented to Person, Place, and Time) Skin Assessment No Verified Present Upon IVs, Arterial line, Arrival to OR Oxygen Last Modified By: Tiana Ware RN 04/04/18 12:58:33 [facility] IntraOp Intraoperative Assessment Audit 04/04/18 12:58:33 Holistic Specialist: EANAPIER Modifier: EANAPIER 1 <*> Present Upon Arrival to OR IVs, Arterial line [facility] IntraOp Intraoperative Equipment Entry 1 Type Monitoring Equipment Intraop Monitoring Electrocardiogram Three lead placement (ECG) Electrode Placement Blood Pressure Non-Invasive BP Device Source Blood Pressure Arm, left upper Location Pulse Oximeter Hand, left Probe Site Antiembolic Devices Scopes Photo/Video Documentation Photo No Last Modified By: Tiana Ware RN 04/04/18 13:00:19 [facility] IntraOp Intraoperative Equipment Audit 04/04/18 13:00:19 Holistic Specialist: EANAPIER Modifier: EANAPIER 1 <*> Pulse Oximeter Probe Site Hand, right [facility] IntraOp Medication Admin Entry 1 Entry 2 Entry 3 Medication/Irrigant MERVIN VISIPAQUE 320MG 150 MERVIN NACL 0.9PCT HPRN lidocaine 1% 50ml vial 200ML --[id number] 1000U .5L -[id number] - [id number] Combo Med List Time Administered Route of contrast flush SUB Q Administration Dose Dose 320 2000 10 Unit of Measure mg units ml Volume Administered By DARIO JEAN MD-SUR ABEDI, NICK NIMA, MD-SUR ABEDI, NICK NIMA, MD-SUR Procedure Irrigation Irrigant Volume In Irrigant Volume Out Last Modified By: Tiana Ware RN Napier, Elizabeth A, RN Napier, Elizabeth A, RN 04/04/18 11:46:10 04/04/18 11:46:10 04/04/18 11:46:10 [facility] IntraOp Patient Positioning Entry 1 Procedure Aortic Stent Placement Endovascular Body Position Supine Left Arm Position Tucked and padded at side Right Arm Position Tucked and padded at side Left Leg Position Uncrossed, parallel Right Leg Position Uncrossed, parallel Feet Uncrossed Yes Pressure Points Yes Checked Positioning Devices Head Rest, Safety Strap, Thighs, Pad, Elbow, Pad, Heel Positioned By Tiana Ware RN, Coni Alcaraz Rn, DARIO JEAN MD-JOSE G Position Verified Positioning Yes Verified by Anesthesia Positioning Yes Verified by Surgeon Last Modified By: Tiana Ware RN 04/04/18 11:45:23 [facility] IntraOp Sign In Entry 1 Patient, Site, Yes Procedure Identified Surgical Consent Yes Confirmed Relevant Surgical Yes Documents Available Surgical Site N/A Marked by person performing procedure Anesthesia Machine Yes Check Completed Medication Checks Yes Completed Allergies Yes Airway Difficult Yes Airway/Aspiration Risk Difficult Yes Airway/Aspiration Intervention Equipment Available Blood Loss Risk Yes Blood Loss Yes Intervention Equipment Prepared and Ready Blood Identifiers Yes Verified Per Policy Hypothermia Risk No Warming Measures Yes Taken Last Modified By: Tiana Ware RN 04/04/18 11:46:26 [facility] IntraOp Sign Out Entry 1 RN Confirmation Surgical Yes Procedure(s) Identified Instrument, Sponge N/A and Sharps Counts Correct/Documented Equipment Problems N/A Documented Specimen Labeled N/A Correctly Urinary Catheter N/A Documented in IView Doss Patient Yes Recovery Concerns Reviewed with Anesthesia Provider, Surgeon and RN Doss Patient Yes Management Concerns Reviewed with Anesthesia Provider, Surgeon and RN Safety Checklist Yes Elements Complete? RN Sign Out Tiana Ware RN Signature RN Sign Out 04/04/18 13:14:00 Signature Date/Time Plan of Care Outcome - Fire Risk OUTCOME STATEMENT: Goal met Patient is free from injury related to surgical fire Plan of Care Outcome - Pt Positioning OUTCOME STATEMENT: Goal met Absence of signs and symptoms of positioning injury. Plan of Care Outcome - Skin Prep OUTCOME STATEMENT: Goal met Intraoperative care is consistent with measures to prevent infection Plan of Care Outcome - Xray/Images OUTCOME STATEMENT: Goal met Absence of observable signs or symptoms of radiation injury Plan of Care Outcome - Counts OUTCOME STATEMENT: Goal met Absence of signs and symptoms of injury related to extraneous objects Last Modified By: Tiana Ware RN 04/04/18 13:13:23 [facility] IntraOp Sign Out Audit 04/04/18 13:13:23 Holistic Specialist: MAICOLPIER Modifier: EANAPIER <+> 1 RN Sign Out Signature Date/Time [facility] IntraOp Skin Prep Entry 1 Procedure Aortic Stent Placement Endovascular Prescribed Yes Pre-Surgical Prep Completed Prep Area NIPPLES TO KNEES Intraop Prep Integumentary WDL Assessment WDL Prep Agents Chloraprep Prep by Tiana Ware RN Hair Removal Methods Clipper/Scissors Hair Removal By Coni Alcaraz Rn Last Modified By: Tiana Ware RN 04/04/18 12:07:24 [facility] IntraOp Surgical Procedures Entry 1 Procedure Aortic Stent Placement Endovascular Additional (ENDOVASCULAR AAA) Procedure Description Primary Procedure Yes Primary Surgeon DARIO JEAN MD-JOSE G Start 04/04/18 12:15:00 Stop 04/04/18 13:01:00 Anesthesia Type MAC Specialty SN Endovascular Wound Class I - Clean Last Modified By: Tiana Ware RN 04/04/18 13:13:51 [facility] IntraOp Surgical Procedures Audit 04/04/18 13:13:51 Holistic Specialist: FERNANDO Modifier: MAICOLPIER <+> 1 Stop [facility] IntraOp Temp Regulation Devices Entry 1 Temp Regulation Temperature Forced Air Warming Regulation Device device Temperature Upper body Regulation Site Temperature Device 43 C Setting Temperature MUCACCHENCHO, SPECIMEN PREPARATION ASSISTANT Regulation Device Applied by Last Modified By: Tiana Ware RN 04/04/18 11:48:27 [facility] IntraOP Time Out Entry 1 Procedure to be Aortic Stent Placement Performed Endovascular Time Out Time Out Pause Time 04/04/18 12:09:00 All activity Yes suspended (unless life threatening emergency) Team Verbally Correct patient Confirms Information identity, Correct side and site are marked, Consent form is present and accurate, Agreement on the procedure to be done, Correct patient position, Relevant images/results properly labeled/appropriately displayed, Confirm antibiotics have been administered, Confirm the skin prep has dried, Confirm prosthesis/implant/devic e is present, Performed in location of procedure after prepped/draped Antibiotic Yes Prophylaxis Administered Or In Progress Within the Last 60 Minutes Beta Michelle Yes Administered Venous N/A Thromboembolism Prophylaxis Required Anticipated Critical Events Surgeon None expected Anesthesia Provider None expected Nursing Assures Sterility of instruments, Equipment concerns or issues, Implant Availability Essential Imaging Yes Labeled and Displayed Last Modified By: Tiana Ware RN 04/04/18 12:10:02 General Comments: CLINDAMYCIN [facility] IntraOp X-Ray and Images Entry 1 X-Ray/Imaging Type Fluoroscopy Fluoroscopy Type Fixed Protective Devices Yes Used Exposure Time 5.4 MINUTES Last Modified By: Tiana Ware RN 04/04/18 12:57:46 Case Comments <None> Finalized By: NEVILLE RAYMUNDO Document Signatures Signed By: Tiana Ware RN 04/04/18 13:14 NEVILLE RAYMUNDO 04/05/18 11:22 Unfinalized History Date/Time Username Reason for Unfinalizing Freetext Reason for Unfinalizing 04/05/18 11:18 WATCHRIS Correct Billing Electronically signed by Katja [facility] Conversion Curbing Stonecutter Cerner at 06/11/2022 12:29 PM CDT documented in this encounter Plan of Treatment Upcoming Encounters Date Type Department Care Team (Late st Contact Info) Description 01/29/2025 11:30 AM EST Office Visit [facility] Neurology - [facility] [address] [place] [address] Kimberly Snell MD [address] [place] [address] documented as of this encounter Visit Diagnoses Not on filedocumented in this encounter Care Teams Heel Washer Stringing Machine Operator Relationship Specialty Start Date End Date Kel Gagnon MD [address] [place] [id number] PCP - General General Internal Medicine 10/12/22 documented as of this encounter
--- OUTSIDE RECORDS SUMMARY | 2024-12-12 07:01 | XMS_ITS | Encounter Summary ---
Author Organization [employer] ([place], [place], [place], [place]) Address [address] [place] [address] Care Team Providers Care Cfd Engineer Name Role Phone Kel Gagnon MD Primary Care Provider [phone] Encounter Details Date Type Department Care Team (Late st Contact Info) Description 04/07/2018 Transcribed Document [facility] [place] [address] ProviderElizabeth MD [address] [place] [address] Social History Tobacco Use Types Packs/Day Years Used Date Smoking Tobacco: Never Assessed Sex and Gender Information Value Date Recorded Sex Assigned at Not on file Legal Sex Male 6:12 PM CDT Gender Identity Not on file Sexual Orientation Not on file documented as of this encounter Miscellaneous Notes * Cerner Conversion Note - Historical ProviderMD - 04/07/2018 10:22 AM AUDIO VISUAL FACILITIES ENGINEER Post Visit Phone Call Entered On: 04/07/2018 10:27 EST Performed On: 04/07/2018 10:22 EST by Sophie Pompa Rn Post Visit Phone Call Post Visit Phone Call History : First call, Second call, Left message Contact Relationship to Patient : Spouse Emergency Room Visit Since DC : No Adequate Pain Control After Visit : Yes Surgical Dressing Clean/Dry/Intact : Yes Surgical Site Free of Redness/Swelling/Drainage : Yes Symptoms of Fever : No Symptoms of Nausea or Vomiting : No Adequate Fluid Intake : Yes Food Intake, Post Visit : Good Bowel/Bladder Concerns : No Mobility Progressing or Maintained as Expected : Yes Discharge Instructions Understood : Yes Follow-Up Actions : None Sophie Pompa Rn - 04/07/2018 10:22 EST Electronically signed by Momo Hightower Conversion Manager Inventory Management Cerner at 06/11/2022 12:18 PM CDT documented in this encounter Plan of Treatment Upcoming Encounters Date Type Department Care Team (Late st Contact Info) Description 01/29/2025 11:30 AM EST Office Visit [facility] Neurology - [facility] [address] [place] [address] Kimberly Snell MD [address] [place] [address] documented as of this encounter Visit Diagnoses Not on filedocumented in this encounter Care Teams Cfd Engineer Relationship Specialty Start Date End Date Kel Gagnon MD [address] [place] [address] PCP - General General Internal Medicine 10/12/22 documented as of this encounter
--- OUTSIDE RECORDS SUMMARY | 2024-12-12 07:01 | XMS_ITS | Encounter Summary ---
Author Organization [employer] ([place], [place], [place], [place]) Address [address] [place] [address] Care Team Providers Care Cooler Deliverer Name Role Phone Kel Gagnon MD Primary Care Provider [phone] Encounter Details Date Type Department Care Team (Late st Contact Info) Description 04/05/2018 Transcribed Document [facility] Radiology [address] [place] [address] Joey Fry MD [address] [place] [address] Social History Tobacco Use Types Packs/Day Years Used Date Smoking Tobacco: Never Assessed Sex and Gender Information Value Date Recorded Sex Assigned at Not on file Legal Sex Male 6:12 PM CDT Gender Identity Not on file Sexual Orientation Not on file documented as of this encounter Miscellaneous Notes * Cerner Conversion Note - Joey Fry MD - 04/05/2018 12:00 PM EST Patient: GOMEZ BEAL Age: 63 Years Sex: Male : 1955 Admission Information Patient is a 63-year-old male with findings [...] risks and benefits and agrees to proceed. [1] Admit Date 04/04/2018 13:07 Discharge Date 04/05/2018 12:52 Procedures Aortic Stent Placement Endovascular (Checked In) 04/04/2018 11:15 PAT for Surgery (Confirmed) 04/01/2018 09:30 Hospital Course 04/04/18 -patient was admitted for procedure -tolerated surgery and was transferred to [facility] in stable condition 04/05/18 -patient had no major complaints -ambulated without difficulty -no abdominal complaints - ready to go home Significant Findings OPERATIVE FINDINGS: 1. Alba Excluder 31 x 14 x 17 placed in an infrarenal portion below the left accessary renal. Contralateral gate measuring 12 x 12 limb. 2. Completion aortography demonstrating no evidence of an endoleak. Bilateral internal iliacs were patent as was bilateral renal arteries. [2] Procedures and Treatment Provided SN - Proc - Procedure: Aortic Stent Placement Endovascular (04/04/18 12:57:15 EST) Physical Exam VSS, Afebrile, SR GEN: A&Ox3 CARD: RRR PULM: clear ABD: soft, nt, nd VASCULAR: -bilateral groin, no hematoma, no drainage -palpable dp/pt/ pulses bilateral Discharge Plan AAA (abdominal aortic aneurysm) without rupture I71.4, Abdominal aortic aneurysm, without rupture I71.4, Abdominal aortic aneurysm, without rupture I71.4 Discharge Orders No qualifying data available. Patient Discharge Condition good Discharge Disposition home Discharge Diet Heart healthy diet Discharge Activity No heavy lifting over 10 pounds Discharge Follow Up JOEY FRY - 04/19/2018 13:00 Discharge Medications Home Medications (8) Active bisoprolol 5 mg oral tablet 2.5 mg = 0.5 Tab, Oral, Daily Coenzyme Q10 100 mg oral capsule 100 mg = 1 Cap, Oral, Daily Crestor 40 mg oral tablet 40 mg = 1 Tab, Oral, At Bedtime Lasix 20 mg oral tablet 20 mg = 1 Tab, PRN, Oral, Daily lisinopril 5 mg oral tablet 2.5 mg = 0.5 Tab, Oral, At Bedtime melatonin 5 mg sublingual tablet 5 mg = 1 Tab, Oral, At Bedtime [place] 7.5 mg-325 mg oral tablet See Instructions, PRN Xarelto 20 mg, Oral, QPM [1] Operative Report; JOEY FRY MD-JOSE G 04/04/2018 13:30 EST [2] Operative Report; JOEY FRY MD-JOSE G 04/04/2018 13:30 EST documented in this encounter Plan of Treatment Upcoming Encounters Date Type Department Care Team (Late st Contact Info) Description 01/29/2025 11:30 AM EST Office Visit [facility] Neurology - [place] [address] [place] [address] Kimberly Snell MD [address] [place] [address] documented as of this encounter Visit Diagnoses Not on filedocumented in this encounter Care Teams Cooler Deliverer Relationship Specialty Start Date End Date Kel Gagnon MD [address] [place] [address] [place] [address] PCP - General General Internal Medicine 10/12/22 documented as of this encounter
[2024-12-12 07:35] LABS: Hematocrit 45.0 % (42.0-52.0); Hemoglobin 14.8 g/dL (14.1-18.0); Immature Granulocytes % 0.3 %; Mean Corpuscular HGB Conc 32.9 g/dL (31.8-35.4); Mean Corpuscular Hemoglobin 28.5 pg (27.0-31.2); Mean Corpuscular Volume 86.7 fl (80-94); Nucleated Red Blood Cells % 0 %; Platelet Count 194 K/mm3 (142-424); Red Blood Count 5.19 M/mm3 (4.60-6.20); Red Cell Distribution Width-SD 43.9 fL; White Blood Count 6.9 K/mm3 (4.8-10.8)
[2024-12-12 08:07] LABS: Albumin Level 4.0 g/dl (3.5-5.0); Chloride 104 mmol/L (98-107); Potassium 4.2 mmoL/L (3.5-5.1); Sodium 139 mmol/L (136-145)
[2024-12-12 08:09] LABS: Alanine Aminotransferase 25 U/L (12-78); Anion Gap 14.2 mEq/L (5-15); Aspartate Amino Transferase 30 U/L (17-59); Blood Urea Nitrogen 30 mg/dl (9-20); Carbon Dioxide 25 mmol/L (22.0-30.0); Creatinine,Serum 1.50 mg/dl (0.66-1.25); Estimated Glomerular Filt Rate 47 ml/min (>60); GFR (African American) 56 ML/MIN (>60)
[2024-12-12 08:10] LABS: Albumin/Globulin Ratio 1.6 (1.1-1.8); Alkaline Phosphatase 80 U/L (38-126); Bilirubin,Total 0.9 mg/dl (0.2-1.3); Calcium 9.0 mg/dl (8.4-10.2); Cholesterol 122 mg/dl (140-200); Globulin 2.5 g/dL (1.3-3.2); Glucose 84 mg/dl (74-100); HDL Cholesterol 36 mg/dl (40-60); Total Protein,Serum 6.5 g/dl (6.3-8.2); Triglycerides 79 mg/dl (30-150)
[2024-12-12 08:27] LABS: 25-OH Vitamin D, Total 46.7 ng/mL (30-100)
[2024-12-12 09:00] LABS: Vitamin B12 814 pg/mL (239-931)
== END 2024-12-12 23:59 | disposition home or self-care (01) ==
LOC: LAB 06:59
PROVIDERS: PCP Internal Medicine; Visit Provider Psychiatry & Neurology Neurology
DX: I48.0 Paroxysmal atrial fibrillation (principal); I10 Essential (primary) hypertension; Z12.5 Encounter for screening for malignant neoplasm of prostate; I25.10 Atherosclerotic heart disease of native coronary artery without angina pectoris; E78.5 Hyperlipidemia, unspecified; G30.1 Alzheimer's disease with late onset; F02.B0 Dementia in other diseases classified elsewhere, moderate, without behavioral disturbance, psychotic disturbance, mood disturbance, and anxiety; E55.9 Vitamin D deficiency, unspecified; G60.9 Hereditary and idiopathic neuropathy, unspecified
CPT/HCPCS: 36415; 80053; 80061; 82306; 82607; 84207; 84425; 85025; G0103